=== PATIENT | female | born 1960 | race Caucasian/White ===

== ENCOUNTER 2017-09-15 12:28 | Inpatient (IN) | payer BC ==
--- NOTE | 2017-09-15 12:55 | PDOC ---
History of Present Illness - General Chief Complaint: Headache Stated Complaint: PAIN Time Seen by Provider: 09/15/17 12:52 - History of Present Illness Initial Comments: 57yo F with PMH of COPD, gastric sleeve, and depression presenting with headache. Patient woke up on Sunday with signs of trauma (R. ankle twisted, R. arm knot, bump on her head) but she does not recall an injury or fall. On Sunday night, she presented to the [facility] emergency department for headache. In speaking with [facility], CT imaging revealed R. temporal lobe intraparenchymal hematoma and tentorial subdural hematoma. Neurosurgery was consulted there and the patient was placed in observation. The patient was discharged on with Keppra 500 BID x 1 week and Keflex/Bactrim for cellulitis. The patient reports continuing to have a headache, but with greater severity that she describes as "tense" and "throbbing." She is also complaining of left-sided chest pain that started this morning and does not radiate. Patient does not report history of MO, but had HTN and HLD prior to gastric sleeve operation. Patient is a smoker and reports that her mother suffered an MO in her 40s. Denies fever, chills, shortness of breath, abdominal pain, nausea, or vomiting. 09/15/17 13:31 Past History - Past Medical History Allergies/Adverse Reactions: Allergies Allergy/AdvReac Type Severity Reaction Status Date / Time No Known Allergies Allergy Verified 09/15/17 12:40 Home Medications: Ambulatory Orders Alprazolam [Xanax] 1 mg PO TID 09/15/17 Cephalexin [Keflex] 500 mg PO Q6H 09/15/17 Ibuprofen 800 mg PO TID PRN 09/15/17 Levetiracetam 500 mg PO BID 09/15/17 Sulfamethoxazole/Trimethoprim [Bactrim Ds -] 1 tab PO BID 09/15/17 Trazodone HCl 100 mg PO HS 09/15/17 COPD: No - Surgical History Gastric Stapling: Yes (sleeve) - Suicide/Smoking/Psychosocial Hx Smoking History: Current every day smoker Number of Cigarettes Smoked Daily: 5 Information on smoking cessation initiated: No Review of Systems - Review of Systems Comments:: Constitutional: no fever, no chills HEENT: no throat pain, no dysphagia Cardiovascular: +chest pain, no palpitations Respiratory: no cough, no shortness of breath Gastrointestinal: no abdominal pain, no nausea, no vomiting Genitourinary: no dysuria, no frequency Musculoskeletal: +R. ankle pain, +R. arm pain Skin: no rash, no itching Neurologic: +headache, +lightheadedness, +dizziness *Physical Exam - Vital Signs Last Vital Signs Temp Pulse Resp BP Pulse Ox 97.6 F 71 18 132/100 99 09/15/17 12:35 09/15/17 12:35 09/15/17 12:35 09/15/17 12:35 09/15/17 12:35 - Physical Exam Comments: General: Awake, alert, and fully oriented, in no acute distress Eyes: PERRL, EOMI, sclera anicteric ENT: Moist mucus membranes Neck: Normal ROM, supple, no lymphadenopathy, JVD, or masses Lungs: Lungs clear, Normal breath sounds Cardio: Regular rhythm, S1 and S2 present, no murmurs, rubs, or gallops Abdomen: Soft, nontender Extremities: Normal range of motion, R. ankle swollen, Distal pulses present SKIN: Warm, Dry, normal turgor, no rashes or lesions noted Neurologic: Cranial nerves II through XII grossly intact. Normal strength, sensation, and coordination. Normal speech Heart Score/ECG Review - History History: Moderately suspicious - Electrocardiogram EKG: Normal - Age Age: 45-65 - Risk Factors Risk Factors Heart Score: Yes Smoking History, Yes Positive family hx of cardiac disease Based on the list above the patient has:: 1-2 risk factors - Troponin Troponin: </= normal limit - Score Heart Score - Total: 3 ED Treatment Course - LABORATORY CBC & Chemistry Diagram: 09/16/17 06:00 09/16/17 06:00 Medical Decision Making - Medical Decision Making 57yo F with recent trauma and R. temporal lobe interparenchmal hematoma, tentorial subdural hematoma presenting with headache and chest pain. Patient is complaining of chest pain, is a smoker and her mother had an MO at a young age. Treating her with 1L NS, 1gm tylenol, and 2mg Ativan. CXR normal. EKG rate 66, QTc 402, NSR. Awaiting head CT scan results. 09/15/17 15:[address] Krishnan, neurosurgery, who recommended ICU admission. Spoke with ICU team who will accept the patient for ICU. Spoke with hospitalist team who will accept the patient for admission. 09/15/17 16:04 On reassessment, patient complaining of 5/10 pain. Ordered 4mg Morphine. 09/15/17 16:34 Patient's friend attempted to retrieve a copy of the CT imaging from [facility] , but the Medical Records department is closed. He received a phone number that a physician can call to discuss the CT report: [phone] 09/15/17 18:08 *DC/Admit/Observation/Transfer Diagnosis at time of Disposition: Subdural hematoma, Intraparenchymal hematoma of brain, Chest pain - Discharge Dispostion Condition at time of disposition: Guarded Decision to Admit order: Yes - Referrals - Patient Instructions - Post Discharge Activity
[2017-09-15] MEDS ORDERED: SODIUM CHLORIDE 1,000 ML IV STA (13:28)
[2017-09-15] MEDS ORDERED: ACETAMINOPHEN 1000 MG/100 ML VIAL (NON FORMULARY) IVPB ONE ×2 (13:28→18:00)
[2017-09-15] MEDS ORDERED: LORazepam 2 MG/ML SDV VIAL ONE (13:36)
[2017-09-15] MEDS ORDERED: ACETAMINOPHEN INJECTION 100 ML IVPB ONE ×2 (13:37→18:23)
[2017-09-15 13:40] LABS: BASO % 0.9 % (0-2.0); EOS % 1.8 % (0-4.5); HEMATOCRIT 42.1 % (32.4-45.2); HEMOGLOBIN 14.5 GM/dL (10.7-15.3); LYMPH % 16.8 % (8-40); MCHC 34.5 g/dl (32.0-36.0); MEAN CELL VOLUME 98.5 fl (80-96); MEAN PLT VOLUME 8.1 fl (7.5-11.1); MONO % 6.6 % (3.8-10.2); NEUT % 73.9 % (42.8-82.8); PLATELET COUNT 198 K/MM3 (134-434); RBC 4.27 M/mm3 (3.60-5.2); RDW 13.7 % (11.6-15.6); WHITE BLOOD COUNT 6.3 K/mm3 (4.0-10.0)
[2017-09-15 14:09] LABS: ALBUMIN 3.7 g/dl (3.4-5.0); ANION GAP 6 (8-16); BILIRUBIN,TOTAL 0.9 mg/dL (0.2-1.0); BLOOD UREA NITROGEN 17 mg/dL (7-18); CALCIUM 8.7 mg/dL (8.5-10.1); CHLORIDE 110 mmol/L (98-107); CO2 27 mmol/L (21-32); CREATININE 0.8 mg/dL (0.55-1.02); GLUCOSE,RANDOM 102 mg/dL (74-106); POTASSIUM 4.1 mmol/L (3.5-5.1); SGOT/AST 14 U/L (15-37); SGPT/ALT 22 U/L (12-78); SODIUM 143 mmol/L (136-145); TOT PROT 6.6 g/dl (6.4-8.2)
[2017-09-15 14:12] LABS: ALK PHOS 72 U/L (45-117)
[2017-09-15] MEDS ORDERED: METOCLOPRAMIDE HCL INJECTION 10 MG/2 ML VIAL IVPUSH ONE (14:27)
[2017-09-15] MEDS ORDERED: METOCLOPRAMIDE HCL INJECTION 10 MG/2 ML VIAL ONE (14:36)
--- NOTE | 2017-09-15 14:49 | PDOC ---
Attending Attestation - Resident Resident Name: Giovanna Estrellath - ED Attending Attestation I have performed the following: I have examined & evaluated the patient, The case was reviewed & discussed with the resident, I agree w/resident's findings & plan, Exceptions are as noted - HPI HPI: 09/15/17 14:45 57 year old female with past medical history of anxiety, gastric sleeve, COPD, smoker presents with headache and chest pain. Several days ago, the patient had a mechanical fall and hit her head. She was brought to [facility] ED where she obtained a head CT. Her head CT was performed and pt was found to have a right temporal intraparemal hematoma and subdural hematoma. Pt was admitted for observation. Reportedly had a CT scan of her head that was stable. Pt was discharged on keppra. Since then, the patient report persisted frontal headache that is constant. She has been feeling generally weak, lightheaded. Stated that today she felt a sudden onset of sharp midsternal chest pain radiating to left shoulder. Denies SOB. The pain is occasionally reproducible with palpation. Radiates to the left neck. Patient never had a prior cardiac workup (echo or stress). Positive family history with mother with IL at 42 years old. Pt smokes 10 cigarettes a day. Pt reports chest pain with headache (in setting of recent head ICH) made her nervous and patient came to the ER. - Physicial Exam PE: 09/15/17 15:07 GENERAL: Awake, alert, and fully oriented. + very anxious HEAD: No signs of trauma EYES: EOMI, sclera anicteric, conjunctiva clear ENT: Auricles normal inspection, hearing grossly normal, nares patent, NECK: Normal ROM, supple LUNGS: Breath sounds equal, clear to auscultation bilaterally. No wheezes, and no crackles HEART: Regular rate and rhythm, normal S1 and S2, no murmurs, rubs or gallops BACK: TTP left upper back (elements of muscle spasms). ABDOMEN: Soft, nontender, No guarding, no rebound. No masses EXTREMITIES: Normal range of motion, no edema. No clubbing or cyanosis. No cords, erythema, or tenderness NEUROLOGICAL: Cranial nerves II through XII intact. Normal speech, 5/5 strength upper and lower extremity. SKIN: Warm, Dry, normal turgor, no rashes or lesions noted. - Medical Decision Making 09/15/17 15:09 Vital Signs Temp Pulse Resp BP Pulse Ox 97.6 F 71 18 132/100 98 09/15/17 12:35 09/15/17 12:35 09/15/17 12:35 09/15/17 12:35 09/15/17 13:02 57 year old F p/w headache. The headache is likely secondary to traumatic ICH. Will repeat head CT, and determine to see if CT head is worse. Symptomatic control and reassess. Chest pain does have some atypical elements, but patient has strong family history of IL, and patient is a current smoker. Will need to rule out IL. Does have some reproducible back spasm. When I had examined the patient, she had a witnessed vasovagal syncopal episode with me secondary to pain. ECG is reassurring and normal. However, will ultimately admit patient for telemetry and cardiac evaluation. Pt is also appears to be quite anxious. Will give IV ativan for relief. 09/15/17 15:50 CT head shows: low-attenuation density/edema in the right temporal lobe with mild mass effect effacing the right lateral basal cistern. no gross acute intraparenchymal hemorrhage is identified. Vasogenic edema should be considered. Small subdural acute/subacute hemorrhage is seen layering over the right tentorium along medial aspect of the right posterior falx. Dr. Krishnan was consulted. Recommends ICU admission and neuro checks. Heart Score/ECG Review - History History: Moderately suspicious - Electrocardiogram EKG: Normal - Age Age: 45-65 - Risk Factors Risk Factors Heart Score: Yes Smoking History, Yes Positive family hx of cardiac disease Based on the list above the patient has:: 1-2 risk factors - Troponin Troponin: </= normal limit - Score Heart Score - Total: 3 #1 ECG reviewed & interpreted by me at: 13:30 09/15/17 15:12 NSR 66, no std/marcell, normal axis, normal intervals, QTC 402 msec, no brugada, no HOCM, no WPW
[2017-09-15 14:55] LABS: INR 1.04 (0.83-1.09); PROTHROMBIN TIME (PATIENT) 11.8 SEC (9.7-13.0)
--- NOTE | 2017-09-15 16:31 | PN ---
Physical Exam: SUBJECTIVE: Patient seen and examined OBJECTIVE: Vital Signs Period Temp Pulse Resp BP Sys/Cho Pulse Ox Last 24 Hr 97.6 F 71-81 17-18 127-132/69-100 98-99 GENERAL: The patient is awake, alert, and fully oriented, in no acute distress. HEAD: Normal with no signs of trauma. EYES: PERRL, extraocular movements intact, sclera anicteric, conjunctiva clear. No ptosis. ENT: Ears normal, nares patent, oropharynx clear without exudates, moist mucous membranes. NECK: Trachea midline, full range of motion, supple. LUNGS: Breath sounds equal, clear to auscultation bilaterally, no wheezes, no crackles, no accessory muscle use. HEART: Regular rate and rhythm, S1, S2 without murmur, rub or gallop. ABDOMEN: Soft, nontender, nondistended, normoactive bowel sounds, no guarding, no rebound, no hepatosplenomegaly, no masses. EXTREMITIES: 2+ pulses, warm, well-perfused, no edema. NEUROLOGICAL: Cranial nerves II through XII grossly intact. Normal speech, gait not observed. PSYCH: Normal mood, normal affect. SKIN: Warm, dry, normal turgor, no rashes or lesions noted Laboratory Results - last 24 hr 09/15/17 09/15/17 09/15/17 13:32 13:32 13:32 WBC 6.3 RBC 4.27 Hgb 14.5 Hct 42.1 MCV 98.5 H MCH 34.0 H MCHC 34.5 RDW 13.7 Plt Count 198 MPV 8.1 Absolute Neuts (auto) 4.7 Neutrophils % 73.9 Lymphocytes % 16.8 Monocytes % 6.6 Eosinophils % 1.8 Basophils % 0.9 Nucleated RBC % 0 PT with INR 11.80 INR 1.04 Sodium 143 Potassium 4.1 Chloride 110 H Carbon Dioxide 27 Anion Gap 6 L BUN 17 Creatinine 0.8 Creat Clearance w eGFR > 60 Random Glucose 102 Calcium 8.7 Total Bilirubin 0.9 AST 14 L ALT 22 Alkaline Phosphatase 72 Troponin I < 0.02 Total Protein 6.6 Albumin 3.7 CBC, [facility] 09/15/17 13:32 09/15/17 13:32 ASSESSMENT/PLAN:
[2017-09-15] MEDS ORDERED: morphine CARPU-JECT 4 MG/1 ML DISP.SYRIN IVPUSH ONE (16:32)
--- NOTE | 2017-09-15 16:32 | HP ---
CHIEF COMPLAINT: PCP: HISTORY OF PRESENT ILLNESS: 57yo F with PMH of COPD, gastric sleeve, and depression presenting with headache. Patient woke up on Sunday with signs of trauma (R. ankle twisted, R. arm knot, bump on her head) but she does not recall an injury or fall. On Sunday night, she presented to the [facility] emergency department for headache. In speaking with [facility], CT imaging revealed R. temporal lobe intraparenchymal hematoma and tentorial subdural hematoma. Neurosurgery was consulted and the patient was placed in observation. The patient was discharged on with Keppra 500 BID x 1 week and Keflex/Bactrim for cellulitis. The patient reports continuing to have a headache, but with greater severity that she describes as "tense" and "throbbing." She is also complaining of left-sided chest pain that started this morning and does not radiate. Patient does not report history of UT, but had HTN and HLD prior to gastric sleeve operation. Denies fever, chills, shortness of breath, abdominal pain, nausea, or vomiting, dysuria or hematuria. ER course was notable for: (1) CT head (2) NS 1 L (3) pain control Recent Travel:denies PAST MEDICAL HISTORY COPD, gastric sleeve, and depression , subdural hematoma , intracrnial hematoma PAST SURGICAL HISTORY: denies Social History: Smokin PPD since age of 17 (42 years PPD) Alcohol:one smernoff every other day Drugs: denies Family History: mother at age of 40 heart attack Allergies No Known Allergies Allergy (Verified 09/15/17 12:40) HOME MEDICATIONS: Home Medications Medication Instructions Recorded Alprazolam [Xanax] 1 mg PO TID 09/15/17 Cephalexin [Keflex] 500 mg PO Q6H 09/15/17 Ibuprofen 800 mg PO TID PRN 09/15/17 Levetiracetam 500 mg PO BID 09/15/17 Sulfamethoxazole/Trimethoprim 1 tab PO BID 09/15/17 [Bactrim Ds -] REVIEW OF SYSTEMS CONSTITUTIONAL: Absent: fever, chills, diaphoresis, generalized weakness, malaise, loss of appetite, weight change HEENT: Absent: rhinorrhea, nasal congestion, throat pain, throat swelling, difficulty swallowing, mouth swelling, ear pain, eye pain, visual changes CARDIOVASCULAR: chest pain, Absent: syncope, palpitations, irregular heart rate, lightheadedness, peripheral edema RESPIRATORY: Absent: cough, shortness of breath, dyspnea with exertion, orthopnea, wheezing, stridor, hemoptysis GASTROINTESTINAL: nausea, Absent: abdominal pain, abdominal distension, vomiting, diarrhea, constipation, melena, hematochezia GENITOURINARY: Absent: dysuria, frequency, urgency, hesitancy, hematuria, flank pain, genital pain MUSCULOSKELETAL: back pain, neck pain Absent: myalgia, arthralgia, joint swelling, SKIN: Absent: rash, itching, pallor NEUROLOGIC: headache, dizziness, Absent: focal weakness or paresthesias, unsteady gait, seizure, mental status changes, bladder or bowel incontinence PSYCHIATRIC: anxiety, depression, Absent: suicidal or homicidal ideation, hallucinations. PHYSICAL EXAMINATION Vital Signs - 24 hr 09/15/17 09/15/17 09/15/17 12:35 13:02 16:29 Temperature 97.6 F Pulse Rate 71 Pulse Rate [ 81 Apical] Respiratory 18 17 Rate Blood Pressure 132/100 Blood Pressure 127/69 [Left Arm] O2 Sat by Pulse 99 98 98 Oximetry (%) GENERAL: AAO3 , seems anxious HEAD: NC/AT EYES: MARIO, EOMI , sclera anicteric, conjunctiva clear. ENT: nares patent, oropharynx clear without exudates. Moist mucous membranes. NECK: Normal range of motion, supple without JVD, LUNGS: CTA B/L . No wheezes, and no crackles. No accessory muscle use. HEART: Regular rate and rhythm, normal S1 and S2 without murmur, rub or gallop. ABDOMEN: Soft, nontender, not distended, normoactive bowel sounds, no guarding, no rebound, MUSCULOSKELETAL: Normal range of motion at all joints. No bony deformities , upper back tenderness. No CVA tenderness. UPPER EXTREMITIES: 2+ pulses, warm, well-perfused. No cyanosis. No clubbing. No peripheral edema. LOWER EXTREMITIES: 2+ pulses, warm, well-perfused. No calf tenderness. No peripheral edema. NEUROLOGICAL: Cranial nerves II-XII intact. Normal speech. Normal gait. PSYCHIATRIC: Cooperative. Good eye contact SKIN: Warm, dry, normal turgor, no rashes or lesions noted, normal capillary refill. Laboratory Results - last 24 hr 09/15/17 09/15/17 09/15/17 13:32 13:32 13:32 WBC 6.3 RBC 4.27 Hgb 14.5 Hct 42.1 MCV 98.5 H MCH 34.0 H MCHC 34.5 RDW 13.7 Plt Count 198 MPV 8.1 Absolute Neuts (auto) 4.7 Neutrophils % 73.9 Lymphocytes % 16.8 Monocytes % 6.6 Eosinophils % 1.8 Basophils % 0.9 Nucleated RBC % 0 PT with INR 11.80 INR 1.04 Sodium 143 Potassium 4.1 Chloride 110 H Carbon Dioxide 27 Anion Gap 6 L BUN 17 Creatinine 0.8 Creat Clearance w eGFR > 60 Random Glucose 102 Calcium 8.7 Total Bilirubin 0.9 AST 14 L ALT 22 Alkaline Phosphatase 72 Troponin I < 0.02 Total Protein 6.6 Albumin 3.7 CBC, BMP 09/15/17 13:32 09/15/17 13:32 ASSESSMENT/PLAN: 57yo F with PMH of COPD, gastric sleeve, and depression, recent mechanical fall and intracranial bleed (last sunday at [facility] ) presenting with headache.and left shoulder pain admitted to ICU for SDH and Intra parenchymal bleed monitoring #Temporal ICH w/ vasogenic edema * CT shows little mass effect and acute SDH * Neurosurgery consulted with Dr. Drake * Neuro checks q2h and ICU monitoring. * Repeat imaging per Neurosurgery. * NPO w/ gentle IVF hydration. * Continue keppra 500 BID x 1 week * Pain control with IV tylenol/lidocaine * avoid narcotics, can worsen dizziness and risk of falls. * avoid ibuprofen, Naproxen or any other NSAIDs * Drug screen * PT eval inpatient if no new concerns overnight. * pt may have some positional dizziness for few weeks and advised for outpatient PT #Atypical chest pain - suspect musculoskeletal. * presentation not consistent with ACS. EKG unremarkable. Not a candidate for full dose AC and not a candidate for elective cardiac w/u untill bleed concerns have resolved. * cardiac enzymes * Telemetry #back pain * generalized with no point tenderness or spasm * Pain control with IV tylenol/lidocaine #cellulitis * cont keflex/bactrim per outpatient for now. # COPD * stable * not on any meds * counseled about smoking cessation # Depression /anxiety * cont home meds Xanax 1 mg TID , Trazadon 100 mg HS # FEN * F: D5/NS @ 75 CC/hr * E: WNL * N : NPO except meds # Proph * DVTS: early ambulations , scds , avoid chemo proph in term of intracranical bleed * # dispo * admit to ICU * PT eval inpatient if no new concerns overnight. total admit time 60 min case was discussed with Dr thompson and medical team Nain Mendez MD PGY 2 Visit type - Emergency Visit Emergency Visit: Yes Care time: The patient presented to the Emergency Department on the above date and was hospitalized for further evaluation of their emergent condition. - New Patient This patient is new to me today: Yes Date on this admission: 09/15/17 - Critical Care Critical Care patient: Yes Total Critical Care Time (in minutes): 45 Critical Care Statement: The care of this patient involved high complexity decision making to prevent further life threatening deterioration of the patient 's condition and/or to evaluate & treat vital organ system(s) failure or risk of failure. Hospitalist Screening - Colonoscopy Questionnaire Colonoscopy Questionnaire: Colonoscopy Questionnaire - Patient: 50 - 75 years old and never had a screening colonoscopy: Unknown History of colon or rectal polyps, or CA: Unknown History of IBD, Crohn's disease or UC: Unknown History of abdominal radiation therapy as a child: Unknown - Relative: 1 with colon or rectal CA, or polyps at age 60 or younger: Unknown Colon or rectal CA diagnosed at age 45 or younger: Unknown Multiple relatives with colon or rectal CA: Unknown - Outcome: Screening Result: Negative Screen
[2017-09-15] MEDS ORDERED: morphine SULFATE 4 MG/ML VIAL ONE (16:35)
[2017-09-15] MEDS ORDERED: ACETAMINOPHEN 325 MG TABLET (FP) PO PRN (17:16)
--- NOTE | 2017-09-15 17:17 | PN ---
Teaching Attending Note Name of Resident: Nain Mendez ATTENDING PHYSICIAN STATEMENT I saw and evaluated the patient. I reviewed the resident's note and discussed the case with the resident. I agree with the resident's findings and plan as documented with exceptions below. SUBJECTIVE: 57 yof with with recent Temporal ICH/SDH, admitted to [facility], on 09/12, d/ audrey on 09/13 on keppra and keflex/bactrim for right arm cellulitis, comes back with persistent headache, dizziness with movements activity and chest pain. Patient reports a week ago, woke up with severe generalized headache, dizziness , right ankle twisting but denies recalling any h/o fall or trauma. Crawford symptoms would resolve, but when they didn't so went to [facility] on 09/12, where was diagnosed with ICH/SDH as above, monitored overnight. Per patient had CT brain x 3 and right ankle imaging and was sent home the next day. She was advised to stop her naprosyn. However, she had been having ongoing headaches, intermittent, generalized, throbbing, more with head movements and activity, associated with dizziness and not 'feeling herself'. This AM also had left shoulder pain radiating to left upper back, with self resolution, prompting her to come to ED. Current no further shoulder pain, but reports focal upper back pain, pointing to the area but no limitation of shoulder movements. Denies any back pain, abdominal or urinary symptoms, palpitations, dyspnea, dizziness, weakness, tingling/numbness, visual or speech concerns. Took a dose of home ibuprofen this AM. OBJECTIVE: Vital Signs Period Temp Pulse Resp BP Sys/Cho Pulse Ox Last 24 Hr 97.6 F 71-81 17-18 127-132/69-100 98-99 Intake & Output 09/12/17 09/13/17 09/14/17 09/15/17 23:59 23:59 23:59 23:59 Weight 145 lb GENERAL: Awake, alert, and fully oriented, in no acute distress. HEAD: Normal with no signs of trauma. EYES: Pupils equal, round and reactive to light, extraocular movements intact, sclera anicteric, conjunctiva clear. No lid lag. EARS, NOSE, THROAT: Ears normal, nares patent, oropharynx clear without exudates. Moist mucous membranes. NECK: soft, supple, no JVD, full ROM (reports some dizziness with movements). LUNGS: Breath sounds equal, clear to auscultation bilaterally. No wheezes, and no crackles. No accessory muscle use. HEART: S1S2 regular ABDOMEN: Soft, obese, nontender, not distended, normoactive bowel sounds, no guarding, no rebound, no masses. MUSCULOSKELETAL: Normal range of motion at all joints. No spinal tenderness per se, but on paraspinal palpation, reports tenderness and had her eyes transiently closed but was arousable and appropriate through the exam, no spasm or point tenderness noted UPPER EXTREMITIES: 2+ pulses, warm, well-perfused. No cyanosis. No clubbing. No peripheral edema. LOWER EXTREMITIES: 2+ pulses, warm, well-perfused. No calf tenderness. No peripheral edema. NEUROLOGICAL: Cranial nerves II-XII intact. Normal speech. dizziness but no gait abnormalities otherwise, facial symmetry, power 5/5, sensation intact and symmetric to light touch, no pronator drift, EOMI, PERRL, finger nose test with no past pointing PSYCHIATRIC: Cooperative. Good eye contact. Appropriate mood and affect. SKIN: Warm, dry, normal turgor, no rashes or lesions noted, normal capillary refill. Home Medications Medication Instructions Recorded Alprazolam [Xanax] 1 mg PO TID 09/15/17 Cephalexin [Keflex] 500 mg PO Q6H 09/15/17 Ibuprofen 800 mg PO TID PRN 09/15/17 Levetiracetam 500 mg PO BID 09/15/17 Sulfamethoxazole/Trimethoprim 1 tab PO BID 09/15/17 [Bactrim Ds -] Laboratory Results - last 24 hr 09/15/17 09/15/17 09/15/17 13:32 13:32 13:32 WBC 6.3 RBC 4.27 Hgb 14.5 Hct 42.1 MCV 98.5 H MCH 34.0 H MCHC 34.5 RDW 13.7 Plt Count 198 MPV 8.1 Absolute Neuts (auto) 4.7 Neutrophils % 73.9 Lymphocytes % 16.8 Monocytes % 6.6 Eosinophils % 1.8 Basophils % 0.9 Nucleated RBC % 0 PT with INR 11.80 INR 1.04 Sodium 143 Potassium 4.1 Chloride 110 H Carbon Dioxide 27 Anion Gap 6 L BUN 17 Creatinine 0.8 Creat Clearance w eGFR > 60 Random Glucose 102 Calcium 8.7 Total Bilirubin 0.9 AST 14 L ALT 22 Alkaline Phosphatase 72 Troponin I < 0.02 Total Protein 6.[address] brain result and images reviewed EKG- NSR, no acute ST-T changes ASSESSMENT AND PLAN: 57 yof, recently admitted to [facility] with ICH/SDH, d/audrey on keppra/ antibiotics, comes back with persistent headache/dizziness and atypical chest pain -Temporal ICH with vasogenic edema with little mass effect and acute SDH -Atypical chest pain, suspect musculoskeletal -Generalized non specific back pain with no point tenderness or spasm -Recent ?RUE cellulitis from trauma PLan: Neurosurgery consulted with Dr. Drake, overnight close neuro checks and ICU monitoring. Neuro checks q1h, NPO, gentle hydration. Continue keppra. Pain control with IV tylenol/lidocaine. Advised patient to avoid narcotics given potential to worsen dizziness and risk of falls. Explained patient that will likely have some positional dizziness for few weeks and advised outpatient PT PT eval inpatient if no new concerns overnight. Repeat Head imaging per Neurosurgery. Telemetry, cycle cardiac enzymes. EKG unremarkable. Symptoms and presentation not consistent with ACS. Also not a candidate for full dose anti-coagulation and hence currently not a candidate for elective cardiac w/u till bleed concerns have resolved. Patient advised smoking cessation and need for outpatient cardiac w/u given her risk factors, if current stay unremarkable. Strongly advised to avoid ibuprofen, Naproxen or any other NSAIDs without discussion with her doctor. Continue keflex/bactrim per outpatient for now. Drug screen. DVTPPX with SCDs. Dispo admit to ICU, further based on clinical course. Plan discussed with patient in detail, all questions answered. Patient relays understanding and in agreement. Total admit time 60 min.
[2017-09-15] MEDS ORDERED: SODIUM CHLORIDE 1,000 ML IV SCH (17:30)
[2017-09-15] MEDS ORDERED: DEXTROSE 5%-NORMAL SALINE 1,000 ML IV SCH (18:00)
[2017-09-15] MEDS ORDERED: CEPHALEXIN MONOHYDRATE 500 MG CAPSULE (UD) ONE (18:02)
[2017-09-15] MEDS ORDERED: LIDOCAINE 5% TOPICAL PATCH ONE (18:03)
[2017-09-15] MEDS: LIDOCAINE 5% TOPICAL PATCH TP SCH (18:40)
[2017-09-15] MEDS: CEPHALEXIN MONOHYDRATE 500 MG CAPSULE (UD) PO SCH (18:45)
[2017-09-15 21:42] LABS: COCAINE, UR NEGATIVE ng/ml (CUTOFF=300); METHADONE, UR NEGATIVE ng/ml (CUTOFF=300); OPIATES, URI NEGATIVE ng/ml (CUTOFF=300); PHENCYCLIDINE,URINE NEGATIVE ng/ml (CUTOFF=25); URINE AMPHETAMINES NEGATIVE ng/ml (CUTOFF=500); URINE BARBITURATES NEGATIVE ng/ml (CUTOFF=200)
[2017-09-15 21:43] LABS: URINE BENZODIAZEPINES POSITIVE ng/ml (CUTOFF=200)
--- NOTE | 2017-09-15 21:51 | CONSULT ---
Consultation: REQUESTING PROVIDER: CONSULT REQUEST: We have been asked to medically evaluate this patient for ( subdural hematoma). HISTORY OF PRESENT ILLNESS: Pt is a 57 y/o lady who was admitted to [facility]) on 09/12 and found to have a right sided subdural hematoma located in the temporal region. She was discharged from [facility] ([facility]) on 09/13 on keppra and keflex/ bactrim for right arm cellulitis. Pt presented today to [facility] today with persistent headache, seeing flashing yellow lights, and experiencing a sensation of the room spinning. Pt also states that she has been having radiating chest pain from her left shoulder to her back. Patient endorses that a week ago, she woke up with a severe generalized headache, dizziness, right ankle pain (denies recalling any h/o fall or trauma). Per patient had CT brain x 3 and right ankle imaging and was sent home the next day. She was advised to stop her naprosyn. REVIEW OF SYSTEMS: CONSTITUTIONAL: PRESENT: generalized weakness, malaise, loss of appetite HEENT: PRESENT: eye pain, visual changes CARDIOVASCULAR: PRESENT chest pain, syncope, lightheadedness RESPIRATORY: Absent: cough, shortness of breath, dyspnea with exertion, orthopnea, wheezing, stridor, hemoptysis GASTROINTESTINAL: Absent: abdominal pain, abdominal distension, nausea, vomiting, diarrhea, constipation, melena, hematochezia GENITOURINARY: Absent: dysuria, frequency, urgency, hesitancy, hematuria, flank pain, genital pain MUSCULOSKELETAL: PRESENT: myalgia, back pain SKIN: PRESENT: Cellulitis HEMATOLOGIC/IMMUNOLOGIC: Absent: easy bleeding, easy bruising, lymphadenopathy, frequent infections ENDOCRINE: Absent: unexplained weight gain, unexplained weight loss, heat intolerance, cold intolerance NEUROLOGIC: Absent: headache, focal weakness or paresthesias, dizziness, unsteady gait, seizure, mental status changes, bladder or bowel incontinence PSYCHIATRIC: Absent: anxiety, depression, suicidal or homicidal ideation, hallucinations. PHYSICAL EXAMINATION Vital Signs - 24 hr 09/15/17 09/15/17 09/15/17 12:35 13:02 16:29 Temperature 97.6 F Pulse Rate 71 Pulse Rate [ 81 Apical] Respiratory 18 17 Rate Blood Pressure 132/100 Blood Pressure 127/69 [Left Arm] O2 Sat by Pulse 99 98 98 Oximetry (%) GENERAL: AD. Severe Headache HEAD: Swelling right side head. EYES: Difficulty following finger. EARS, NOSE, THROAT: WNL NECK:Supple. No JVD. LUNGS: CTA B/L HEART: RRR, No MRG, S1,S2 ABDOMEN: Soft, No HSM, ND, NT MUSCULOSKELETAL: Shoulder pain. UPPER EXTREMITIES: No CCE LOWER EXTREMITIES: No CCE NEUROLOGICAL: Unable to complete full Neuro Exam. Uncooperative. PSYCHIATRIC: Anxious. SKIN: Cellulitis right arm. Laboratory Results - last 24 hr 09/15/17 09/15/17 09/15/17 13:32 13:32 13:32 WBC 6.3 RBC 4.27 Hgb 14.5 Hct 42.1 MCV 98.5 H MCH 34.0 H MCHC 34.5 RDW 13.7 Plt Count 198 MPV 8.1 Absolute Neuts (auto) 4.7 Neutrophils % 73.9 Lymphocytes % 16.8 Monocytes % 6.6 Eosinophils % 1.8 Basophils % 0.9 Nucleated RBC % 0 PT with INR 11.80 INR 1.04 Sodium 143 Potassium 4.1 Chloride 110 H Carbon Dioxide 27 Anion Gap 6 L BUN 17 Creatinine 0.8 Creat Clearance w eGFR > 60 Random Glucose 102 Calcium 8.7 Total Bilirubin 0.9 AST 14 L ALT 22 Alkaline Phosphatase 72 Creatine Kinase Troponin I < 0.02 Total Protein 6.6 Albumin 3.7 09/15/17 15:55 WBC RBC Hgb Hct MCV MCH MCHC RDW Plt Count MPV Absolute Neuts (auto) Neutrophils % Lymphocytes % Monocytes % Eosinophils % Basophils % Nucleated RBC % PT with INR INR Sodium Potassium Chloride Carbon Dioxide Anion Gap BUN Creatinine Creat Clearance w eGFR Random Glucose Calcium Total Bilirubin AST ALT Alkaline Phosphatase Creatine Kinase 46 Troponin I < 0.02 Total Protein Albumin Active Medications Generic Name Dose Route Start Last Admin Trade Name Freq PRN Reason Stop Dose Admin Alprazolam 1 mg 09/15/17 22:00 Xanax - PO TID JULY Cephalexin HCl 500 mg 09/15/17 18:00 09/15/17 18:45 Keflex - PO 500 mg Q6HPO JULY Administration Chlorhexidine Gluconate 1 applic 09/15/17 22:00 Hibiclens For Decolonization - TP HS JULY Dextrose/Sodium Chloride 1,000 mls @ 75 mls/hr 09/15/17 18:00 09/15/17 18:54 D5-Ns - IV 75 mls/hr ASDIR JULY Administration Levetiracetam 500 mg 09/15/17 22:00 Keppra - PO BID JULY Lidocaine 1 patch 09/15/17 18:00 09/15/17 18:40 Lidoderm Patch - TP 1 patch DAILY JULY Administration Miscellaneous 1 each 09/15/17 22:00 Lidoderm Patch Removal MC DAILY@2200 [facility] Mupirocin 1 applic 09/15/17 22:00 Bactroban Ointment (For Decolonization) - NS 09/20/17 21:59 BID JULY Trazodone HCl 100 mg 09/15/17 22:00 Desyrel - PO HS JULY Trimethoprim/Sulfamethoxazole 1 each 09/15/17 22:00 Bactrim Ds - PO BID JULY ASSESSMENT/PLAN: Neuro: Intracranial hemmorghae- Subdural Hematoma. - Keppra 500 mg PO BID -Neurosurgery consulted with Dr. Drake, overnight close neuro checks and ICU monitoring. -Neuro checks q2h cycle cardiac enzymes -Withhold ibuprofen, Naproxen and NSAIDs -Head CT 09/15/17 --> No gross intraparenchymal hemmorhage identified. A small subdural acute/subacute hemmorhage is seen layering over the right tentorium and along medial aspect of the right posterior falx without mass efect. NPO w/ gentle IVF hydration. ID: Cellulitis--> Keflex 500 mg PO BID DVT ppx: No A/C at this time due to subdural bleed. -SCD's FEN: D5NS- NS 1,000 mls @ 75 mls/hr Monitor Electrolytes NPO Dispo: We will continue to follow the patient. Thank you for this consultative opportunity. Visit type - Emergency Visit Emergency Visit: Yes Care time: The patient presented to the Emergency Department on the above date and was hospitalized for further evaluation of their emergent condition. - New Patient This patient is new to me today: Yes Date on this admission: 09/15/17 - Critical Care Critical Care patient: Yes Total Critical Care Time (in minutes): 35 Critical Care Statement: The care of this patient involved high complexity decision making to prevent further life threatening deterioration of the patient 's condition and/or to evaluate & treat vital organ system(s) failure or risk of failure.
[2017-09-15] MEDS ORDERED: ALPRAZolam 2 MG TABLET PO SCH (22:00)
[2017-09-15] MEDS ORDERED: levETIRAcetam 500 MG TABLET (FP) PO ONE (22:19)
[2017-09-15] MEDS ORDERED: SULFAMETHOXAZOLE/TRIMETHOPRIM 800MG/160MG D.S. TABLET ONE (22:19)
[2017-09-15] MEDS: SULFAMETHOXAZOLE/TRIMETHOPRIM 800MG/160MG D.S. TABLET PO SCH (23:01)
[2017-09-15] MEDS: ALPRAZolam 0.25 MG TABLET PO SCH (23:01)
[2017-09-15] MEDS: levETIRAcetam 500 MG TABLET (FP) PO SCH (23:01)
[2017-09-15] MEDS: traZODone HCL 50 MG TABLET (FP) PO SCH (23:01)
[2017-09-16] MEDS ORDERED: CEPHALEXIN MONOHYDRATE 500 MG CAPSULE (UD) ONE (00:06)
[2017-09-16] MEDS: CEPHALEXIN MONOHYDRATE 500 MG CAPSULE (UD) PO SCH ×5 (00:09→23:15)
[2017-09-16] MEDS: LIDOCAINE PATCH REMOVAL MC SCH ×2 (00:09→21:57)
[2017-09-16 06:33] LABS: BASO % 1.1 % (0-2.0); EOS % 3.3 % (0-4.5); HEMATOCRIT 38.7 % (32.4-45.2); HEMOGLOBIN 13.4 GM/dL (10.7-15.3); LYMPH % 21.9 % (8-40); MCH 34.1 pg (25.7-33.7); MCHC 34.6 g/dl (32.0-36.0); MEAN CELL VOLUME 98.6 fl (80-96); MEAN PLT VOLUME 7.8 fl (7.5-11.1); NEUT % 65.7 % (42.8-82.8); PLATELET COUNT 164 K/MM3 (134-434); RBC 3.93 M/mm3 (3.60-5.2); WHITE BLOOD COUNT 4.6 K/mm3 (4.0-10.0)
[2017-09-16 06:43] LABS: INR 1.07 (0.83-1.09); PROTHROMBIN TIME (PATIENT) 12.1 SEC (9.7-13.0)
[2017-09-16 06:46] LABS: ACTIVATED PTT 29.7 SECONDS (25.2-36.5)
[2017-09-16 06:59] LABS: ALBUMIN 3.3 g/dl (3.4-5.0); ANION GAP 7 (8-16); BILIRUBIN,TOTAL 0.7 mg/dL (0.2-1.0); BLOOD UREA NITROGEN 10 mg/dL (7-18); CALCIUM 8.4 mg/dL (8.5-10.1); CHLORIDE 110 mmol/L (98-107); CO2 26 mmol/L (21-32); CREATININE 0.7 mg/dL (0.55-1.02); GLUCOSE,RANDOM 76 mg/dL (74-106); PHOSPHOROUS 3.9 mg/dL (2.5-4.9); POTASSIUM 3.8 mmol/L (3.5-5.1); SGOT/AST 12 U/L (15-37); SGPT/ALT 18 U/L (12-78); SODIUM 143 mmol/L (136-145)
[2017-09-16 07:00] LABS: ALK PHOS 66 U/L (45-117); TOT PROT 5.9 g/dl (6.4-8.2)
[2017-09-16] MEDS ORDERED: ALPRAZolam 0.25 MG TABLET ONE (07:28)
[2017-09-16] MEDS ORDERED: CEPHALEXIN MONOHYDRATE 250 MG CAPSULE (FP) ONE (07:29)
[2017-09-16] MEDS: ALPRAZolam 0.25 MG TABLET PO SCH ×3 (07:33→21:59)
[2017-09-16] MEDS ORDERED: ACETAMINOPHEN 1000 MG/100 ML VIAL (NON FORMULARY) IVPB PRN (07:44)
--- NOTE | 2017-09-16 08:19 | PN ---
Physical Exam: SUBJECTIVE: Patient seen and examined, currently denies any headache or dizziness. asking for something for 'pain'. OBJECTIVE: Vital Signs Period Temp Pulse Resp BP Sys/Cho Pulse Ox Last 24 Hr 97.6 F-98.6 F 70-81 16-18 127-156/69-100 97-99 GENERAL: sitting in bed in no acute distress Neck: soft, Supple, no JVD Chest: CTAB, no rales or wheezing Abdomen:Soft, NT, ND, positive bowel sounds Extremities: no edema, resolving abrasion right lateral arm NEuro: AAOX3, PERRL, EOMI, power 5/5, sensation intact to light touch bilaterally, symmetric, facial symmetry, tongue midline, no pronator drift Laboratory Results - last 24 hr 09/15/17 09/15/17 09/15/17 13:32 13:32 13:32 WBC 6.3 RBC 4.27 Hgb 14.5 Hct 42.1 MCV 98.5 H MCH 34.0 H MCHC 34.5 RDW 13.7 Plt Count 198 MPV 8.1 Absolute Neuts (auto) 4.7 Neutrophils % 73.9 Lymphocytes % 16.8 Monocytes % 6.6 Eosinophils % 1.8 Basophils % 0.9 Nucleated RBC % 0 PT with INR 11.80 INR 1.04 PTT (Actin FS) Sodium 143 Potassium 4.1 Chloride 110 H Carbon Dioxide 27 Anion Gap 6 L BUN 17 Creatinine 0.8 Creat Clearance w eGFR > 60 Random Glucose 102 Calcium 8.7 Phosphorus Magnesium Total Bilirubin 0.9 AST 14 L ALT 22 Alkaline Phosphatase 72 Creatine Kinase Troponin I < 0.02 Total Protein 6.6 Albumin 3.7 Opiates Screen Methadone Screen Barbiturate Screen Phencyclidine Screen Ur Amphetamines Screen MDMA (Ecstasy) Screen Benzodiazepines Screen Cocaine Screen U Marijuana (THC) Screen 09/15/17 09/15/17 09/15/17 15:55 21:00 22:45 WBC RBC Hgb Hct MCV MCH MCHC RDW Plt Count MPV Absolute Neuts (auto) Neutrophils % Lymphocytes % Monocytes % Eosinophils % Basophils % Nucleated RBC % PT with INR INR PTT (Actin FS) Sodium Potassium Chloride Carbon Dioxide Anion Gap BUN Creatinine Creat Clearance w eGFR Random Glucose Calcium Phosphorus Magnesium Total Bilirubin AST ALT Alkaline Phosphatase Creatine Kinase 46 Troponin I < 0.02 Cancelled Total Protein Albumin Opiates Screen Negative Methadone Screen Negative Barbiturate Screen Negative Phencyclidine Screen Negative Ur Amphetamines Screen Negative MDMA (Ecstasy) Screen Negative Benzodiazepines Screen Positive Cocaine Screen Negative U Marijuana (THC) Screen Positive 09/15/17 09/16/17 09/16/17 22:45 06:00 06:00 WBC 4.6 RBC 3.93 Hgb 13.4 Hct 38.7 MCV 98.6 H MCH 34.1 H MCHC 34.6 RDW 13.0 Plt Count 164 MPV 7.8 Absolute Neuts (auto) 3.0 Neutrophils % 65.7 Lymphocytes % 21.9 D Monocytes % 8.0 Eosinophils % 3.3 D Basophils % 1.1 Nucleated RBC % 0 PT with INR 12.10 INR 1.07 PTT (Actin FS) 29.7 Sodium Potassium Chloride Carbon Dioxide Anion Gap BUN Creatinine Creat Clearance w eGFR Random Glucose Calcium Phosphorus Magnesium Total Bilirubin AST ALT Alkaline Phosphatase Creatine Kinase Troponin I < 0.02 Total Protein Albumin Opiates Screen Methadone Screen Barbiturate Screen Phencyclidine Screen Ur Amphetamines Screen MDMA (Ecstasy) Screen Benzodiazepines Screen Cocaine Screen U Marijuana (THC) Screen 09/16/17 06:00 WBC RBC Hgb Hct MCV MCH MCHC RDW Plt Count MPV Absolute Neuts (auto) Neutrophils % Lymphocytes % Monocytes % Eosinophils % Basophils % Nucleated RBC % PT with INR INR PTT (Actin FS) Sodium 143 Potassium 3.8 Chloride 110 H Carbon Dioxide 26 Anion Gap 7 L BUN 10 Creatinine 0.7 Creat Clearance w eGFR > 60 Random Glucose 76 Calcium 8.4 L Phosphorus 3.9 Magnesium 2.0 Total Bilirubin 0.7 AST 12 L ALT 18 Alkaline Phosphatase 66 Creatine Kinase Troponin I Total Protein 5.9 L Albumin 3.3 L Opiates Screen Methadone Screen Barbiturate Screen Phencyclidine Screen Ur Amphetamines Screen MDMA (Ecstasy) Screen Benzodiazepines Screen Cocaine Screen U Marijuana (THC) Screen Active Medications Generic Name Dose Route Start Last Admin Trade Name Freq PRN Reason Stop Dose Admin Acetaminophen 1,000 mg 09/16/17 07:44 Ofirmev Injection - IVPB Q6H PRN PAIN LEVEL 6-10 Alprazolam 1 mg 09/15/17 22:30 09/16/17 07:33 Xanax - PO 1 mg TID JULY Administration Cephalexin HCl 500 mg 09/15/17 18:00 09/16/17 07:33 Keflex - PO 500 mg Q6HPO JULY Administration Chlorhexidine Gluconate 1 applic 09/15/17 22:00 Hibiclens For Decolonization - TP HS JULY Dextrose/Sodium Chloride 1,000 mls @ 75 mls/hr 09/15/17 18:00 09/15/17 18:54 D5-Ns - IV 75 mls/hr ASDIR JULY Administration Levetiracetam 500 mg 09/15/17 22:00 09/15/17 23:01 Keppra - PO 500 mg BID JULY Administration Lidocaine 1 patch 09/15/17 18:00 09/15/17 18:40 Lidoderm Patch - TP 1 patch DAILY JULY Administration Miscellaneous 1 each 09/15/17 22:00 09/16/17 00:09 Lidoderm Patch Removal MC 1 each DAILY@2200 JULY Administration Mupirocin 1 applic 09/15/17 22:00 Bactroban Ointment (For Decolonization) - NS 09/20/17 21:59 BID JULY Trazodone HCl 100 mg 09/15/17 22:00 09/15/17 23:01 Desyrel - PO 100 mg HS JULY Administration Trimethoprim/Sulfamethoxazole 1 each 09/15/17 22:00 09/15/17 23:01 Bactrim Ds - PO 1 each BID JULY Administration CT head (follow UP ) Prelim read discussed with Dr. Mac Curiel, concern for venous sinus thrombosis and venous infarct. ASSESSMENT/PLAN: 57 yof, recently admitted to [facility] with reproted ICH/SDH, d/audrey on keppra/ antibiotics, comes back with persistent headache/dizziness and atypical chest pain -Temporal ICH with vasogenic edema with mass effect and acute SDH -Atypical chest pain, suspect musculoskeletal,resolved -Generalized non specific back pain with no point tenderness or spasm -Recent ?RUE cellulitis from trauma Plan: Notified by lactation nurse radiology this AM Dr. Mac Curiel, patient's follow up CT brain unchanged but concerning for venous sinus thrombosis/Venous infarct. MRI brain/MRA/MRV head stat ordered. Discussed with Dr Drake, suggested transfer to [facility] pending above. Called [facility] transfer center, discussed with neurosurgery Dr. Mera, CT brain report discussed in detail with her, as per her, prior CT brain read at [facility] was reportedly similar and was suggestive of contusion. Patient was in MRI then, recommended stat ED transfer if MRI/MRA/MRV concerning for venous sinus thrombosis. MRI/MRA/MRV results obtained stat, neg for concerns. Discussed with ICU and Dr. Drake, plan for ICU monitoring x 24 hours w ith close neuro checks. Continue keppra. Neurology input given h/o stroke. Suspect underlying anxiety, stressors contributory as well. Continue xanax. Drug screen positive for marihuana. Social work input. Continue bactrim/keflex prophylaxis as suggested by cruz. Advance diet, DC IVF DVTPPX with SCDs patient advised to avoid NSAIDs, till cleared by her doctor. (had taken a dose of ibuprofen on day of admission) Care was co-ordination with ED RN, neurosurgery, ICU, monitefiorre. Total critical care time spent including patient visit, discussion, co- ordination of care 75 min. Visit type - Emergency Visit Emergency Visit: Yes ED Registration Date: 09/15/17 Care time: The patient presented to the Emergency Department on the above date and was hospitalized for further evaluation of their emergent condition. - New Patient This patient is new to me today: No - Critical Care Critical Care patient: Yes Total Critical Care Time (in minutes): 75 Critical Care Statement: The care of this patient involved high complexity decision making to prevent further life threatening deterioration of the patient 's condition and/or to evaluate & treat vital organ system(s) failure or risk of failure. - Discharge Referral Referred to [facility] Med P.C.: No
[2017-09-16] MEDS ORDERED: levETIRAcetam 500 MG TABLET (FP) PO ONE (08:36)
[2017-09-16] MEDS ORDERED: SULFAMETHOXAZOLE/TRIMETHOPRIM 800MG/160MG D.S. TABLET ONE (08:36)
[2017-09-16] MEDS ORDERED: LIDOCAINE 5% TOPICAL PATCH ONE (08:37)
[2017-09-16] MEDS: LIDOCAINE 5% TOPICAL PATCH TP SCH (09:05)
[2017-09-16] MEDS: SULFAMETHOXAZOLE/TRIMETHOPRIM 800MG/160MG D.S. TABLET PO SCH ×2 (09:05→21:57)
[2017-09-16] MEDS: levETIRAcetam 500 MG TABLET (FP) PO SCH (09:05)
[2017-09-16] MEDS ORDERED: ACETAMINOPHEN INJECTION 100 ML IVPB ONE (09:07)
--- NOTE | 2017-09-16 12:38 | PN ---
Physical Exam: UPDATE 1: On attending rounds pt having visual hallucinations and slightly combatative. Haldol 2mg IVP once SUBJECTIVE: OBJECTIVE: Vital Signs Period Temp Pulse Resp BP Sys/Cho Pulse Ox Last 24 Hr 98.1 F-98.6 F 63-81 16-17 127-156/69-106 97-98 Gen: NAD, awake, alert, oriented x3 HEENT: NC/AT, EOMI, RONEN, MMM Neck: Soft, ROM intact LUNGS: CTA b/l, no accessory muscle use HEART: RRR no murmurs ABD: Soft NT/ND NEURO: CN II-XII intact. Strength 5/5 in upper and lower extremity pruitt. Sensation intact throughout. No dysarthria. Gait not observed EXT: No edema, 2+ DP pulses, warm Laboratory Results - last 24 hr 09/15/17 09/15/17 09/15/17 13:32 13:32 13:32 WBC 6.3 RBC 4.27 Hgb 14.5 Hct 42.1 MCV 98.5 H MCH 34.0 H MCHC 34.5 RDW 13.7 Plt Count 198 MPV 8.1 Absolute Neuts (auto) 4.7 Neutrophils % 73.9 Lymphocytes % 16.8 Monocytes % 6.6 Eosinophils % 1.8 Basophils % 0.9 Nucleated RBC % 0 PT with INR 11.80 INR 1.04 PTT (Actin FS) Sodium 143 Potassium 4.1 Chloride 110 H Carbon Dioxide 27 Anion Gap 6 L BUN 17 Creatinine 0.8 Creat Clearance w eGFR > 60 POC Glucometer Random Glucose 102 Calcium 8.7 Phosphorus Magnesium Total Bilirubin 0.9 AST 14 L ALT 22 Alkaline Phosphatase 72 Creatine Kinase Troponin I < 0.02 Total Protein 6.6 Albumin 3.7 Opiates Screen Methadone Screen Barbiturate Screen Phencyclidine Screen Ur Amphetamines Screen MDMA (Ecstasy) Screen Benzodiazepines Screen Cocaine Screen U Marijuana (THC) Screen 09/15/17 09/15/17 09/15/17 15:55 21:00 22:45 WBC RBC Hgb Hct MCV MCH MCHC RDW Plt Count MPV Absolute Neuts (auto) Neutrophils % Lymphocytes % Monocytes % Eosinophils % Basophils % Nucleated RBC % PT with INR INR PTT (Actin FS) Sodium Potassium Chloride Carbon Dioxide Anion Gap BUN Creatinine Creat Clearance w eGFR POC Glucometer Random Glucose Calcium Phosphorus Magnesium Total Bilirubin AST ALT Alkaline Phosphatase Creatine Kinase 46 Troponin I < 0.02 Cancelled Total Protein Albumin Opiates Screen Negative Methadone Screen Negative Barbiturate Screen Negative Phencyclidine Screen Negative Ur Amphetamines Screen Negative MDMA (Ecstasy) Screen Negative Benzodiazepines Screen Positive Cocaine Screen Negative U Marijuana (THC) Screen Positive 09/15/17 09/16/17 09/16/17 22:45 06:00 06:00 WBC 4.6 RBC 3.93 Hgb 13.4 Hct 38.7 MCV 98.6 H MCH 34.1 H MCHC 34.6 RDW 13.0 Plt Count 164 MPV 7.8 Absolute Neuts (auto) 3.0 Neutrophils % 65.7 Lymphocytes % 21.9 D Monocytes % 8.0 Eosinophils % 3.3 D Basophils % 1.1 Nucleated RBC % 0 PT with INR 12.10 INR 1.07 PTT (Actin FS) 29.7 Sodium Potassium Chloride Carbon Dioxide Anion Gap BUN Creatinine Creat Clearance w eGFR POC Glucometer Random Glucose Calcium Phosphorus Magnesium Total Bilirubin AST ALT Alkaline Phosphatase Creatine Kinase Troponin I < 0.02 Total Protein Albumin Opiates Screen Methadone Screen Barbiturate Screen Phencyclidine Screen Ur Amphetamines Screen MDMA (Ecstasy) Screen Benzodiazepines Screen Cocaine Screen U Marijuana (THC) Screen 09/16/17 09/16/17 06:00 09:31 WBC RBC Hgb Hct MCV MCH MCHC RDW Plt Count MPV Absolute Neuts (auto) Neutrophils % Lymphocytes % Monocytes % Eosinophils % Basophils % Nucleated RBC % PT with INR INR PTT (Actin FS) Sodium 143 Potassium 3.8 Chloride 110 H Carbon Dioxide 26 Anion Gap 7 L BUN 10 Creatinine 0.7 Creat Clearance w eGFR > 60 POC Glucometer 85.39687 Random Glucose 76 Calcium 8.4 L Phosphorus 3.9 Magnesium 2.0 Total Bilirubin 0.7 AST 12 L ALT 18 Alkaline Phosphatase 66 Creatine Kinase Troponin I Total Protein 5.9 L Albumin 3.3 L Opiates Screen Methadone Screen Barbiturate Screen Phencyclidine Screen Ur Amphetamines Screen MDMA (Ecstasy) Screen Benzodiazepines Screen Cocaine Screen U Marijuana (THC) Screen Active Medications Generic Name Dose Route Start Last Admin Trade Name Freq PRN Reason Stop Dose Admin Acetaminophen 1,000 mg 09/16/17 07:44 09/16/17 09:06 Ofirmev Injection - IVPB 1,000 mg Q6H PRN Administration PAIN LEVEL 6-10 Alprazolam 1 mg 09/15/17 22:30 09/16/17 07:33 Xanax - PO 1 mg TID JULY Administration Cephalexin HCl 500 mg 09/15/17 18:00 09/16/17 12:08 Keflex - PO 500 mg Q6HPO JULY Administration Chlorhexidine Gluconate 1 applic 09/15/17 22:00 Hibiclens For Decolonization - TP HS [facility] Dextrose/Sodium Chloride 1,000 mls @ 75 mls/hr 09/15/17 18:00 09/15/17 18:54 D5-Ns - IV 75 mls/hr ASDIR JULY Administration Levetiracetam 500 mg 09/15/17 22:00 09/16/17 09:05 Keppra - PO 500 mg BID JULY Administration Lidocaine 1 patch 09/15/17 18:00 09/16/17 09:05 Lidoderm Patch - TP 1 patch DAILY JULY Administration Miscellaneous 1 each 09/15/17 22:00 09/16/17 00:09 Lidoderm Patch Removal MC 1 each DAILY@2200 JULY Administration Mupirocin 1 applic 09/15/17 22:00 Bactroban Ointment (For Decolonization) - NS 09/20/17 21:59 BID JULY Trazodone HCl 100 mg 09/15/17 22:00 09/15/17 23:01 Desyrel - PO 100 mg HS [facility] Administration Trimethoprim/Sulfamethoxazole 1 each 09/15/17 22:00 09/16/17 09:05 Bactrim Ds - PO 1 each BID JULY Administration ASSESSMENT/PLAN: Subdural hematoma Mechanical fall Alcohol abuse Questionable alcohol withdrawals Parasthesias of distal extremity S/P Bariatric surgery Neuro: Subdural hematoma noted on imaging MRI/MRA f/u today Obtain [facility] records to r/o acute vs. chronic venous sinus infarct Continue Keppra 500mg BID PO Neurology recommendations appreciated --Will discuss about possibility of Decadron for vasogenic edema Neurosurgery recommends medical management only Neuro checks Hold Trazodone for now Respiratory: Not in distress Cardiovascular: Hemodynamically stable GI: Likely parasthesias related to vitamin deficiency in setting of bariatric surgery and alcohol dependence --B12, folate, selenium levels to be obtained MSK: Ortho consulted for injury s/p fall Ofirmev IV PRN for pain LIdoderm patch for pain No narcotics in lieu of subdural hematoma Substance abuse: Ativan on board Monitor for signs of withdrawal --Will change to Librium 25mg PRN for withdrawal signs; librium protocol can be initiated if pt begins to withdraw FEN: Fluids: Avoid; tolerating PO Electrolyte abnormalities: None currently Nutrition: Regular diet PPX: DVT - No AP/AC due to hematoma; SCDs Dispo: Monitor in ICU for neuro checks; if stable can transfer to floors in AM Case discussed with Dr. Cooper and Dr. Vidal Corbin, DO - IM PGY-2 Visit type - Emergency Visit Emergency Visit: No - New Patient This patient is new to me today: No - Critical Care Critical Care patient: Yes Total Critical Care Time (in minutes): 35 Critical Care Statement: The care of this patient involved high complexity decision making to prevent further life threatening deterioration of the patient 's condition and/or to evaluate & treat vital organ system(s) failure or risk of failure. - Discharge Referral Referred to [facility] Med P.C.: No
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
[2017-09-16 12:57] VITALS: BMI 27.1
[2017-09-16] MEDS ORDERED: HALOPERIDOL LACTATE 5 MG/ML ONE (13:17)
[2017-09-16] MEDS ORDERED: LORazepam 2 MG/ML SDV VIAL ONE (13:19)
--- NOTE | 2017-09-16 13:24 | PN ---
Teaching Attending Note Name of Resident: Miguel Angel Corbin ATTENDING PHYSICIAN STATEMENT I saw and evaluated the patient. I reviewed the resident's note and discussed the case with the resident. I agree with the resident's findings and plan as documented. SUBJECTIVE: Pt seen and examined in the ICU. Briefly, 57 year old female with h/o alcohol dependence who was seen at [facility] on 09/12 and found to have a right subdural hematoma and right arm cellulitis, discharged on 09/13. Presents today with altered mental status, headache and hallucinations. CT and MRI brain here showing right temporal subdural hematoma. OBJECTIVE: Vital Signs Period Temp Pulse Resp BP Sys/Cho Pulse Ox Last 24 Hr 98 F-98.6 F 60-81 16-17 127-156/69-106 97-98 Intake & Output 09/13/17 09/14/17 09/15/17 09/16/17 23:59 23:59 23:59 23:59 Weight 65.771 kg 67.132 kg Gen: confused, hallucinating Heart: RRR Lung: decreased breath sounds at the bases Abd: soft, nontender Ext: no edema CBC, BMP 09/16/17 06:00 09/16/17 06:00 Active Medications Acetaminophen (Ofirmev Injection -) 1,000 mg IVPB Q6H PRN PRN Reason: PAIN LEVEL 6-10 Last Admin: 09/16/17 09:06 Dose: 1,000 mg Alprazolam (Xanax -) 1 mg PO TID ON LICENSE OF [facility] Last Admin: 09/16/17 07:33 Dose: 1 mg Cephalexin HCl (Keflex -) 500 mg PO Q6HPO ON LICENSE OF [facility] Last Admin: 09/16/17 12:08 Dose: 500 mg Chlorhexidine Gluconate (Hibiclens For Decolonization -) 1 applic TP HS ON LICENSE OF [facility] Dextrose/Sodium Chloride (D5-Ns -) 1,000 mls @ 75 mls/hr IV ASDIR ON LICENSE OF [facility] Last Admin: 09/15/17 18:54 Dose: 75 mls/hr Levetiracetam (Keppra -) 500 mg PO BID ON LICENSE OF [facility] Last Admin: 09/16/17 09:05 Dose: 500 mg Lidocaine (Lidoderm Patch -) 1 patch TP DAILY ON LICENSE OF [facility] Last Admin: 09/16/17 09:05 Dose: 1 patch Miscellaneous (Lidoderm Patch Removal) 1 each MC DAILY@2200 ON LICENSE OF [facility] Last Admin: 09/16/17 00:09 Dose: 1 each Mupirocin (Bactroban Ointment (For Decolonization) -) 1 applic NS BID ON LICENSE OF [facility] Stop: 09/20/17 21:59 Trazodone HCl (Desyrel -) 100 mg PO HS ON LICENSE OF [facility] Last Admin: 09/15/17 23:01 Dose: 100 mg Trimethoprim/Sulfamethoxazole (Bactrim Ds -) 1 each PO BID ON LICENSE OF [facility] Last Admin: 09/16/17 09:05 Dose: 1 each ASSESSMENT AND PLAN: Subdural Hematoma ?Fall Alcohol Dependence r/o Alcohol Withdrawal Cellulitis - neuro checks - on empiric antiepileptics - start librium protocol - IVF - vitamin replacement - continue antibiotics for cellulitis - mechanical DVT prophylaxis
[2017-09-16] MEDS ORDERED: HALOPERIDOL LACTATE 5 MG/ML IVPUSH ONE (13:29)
[2017-09-16] MEDS ORDERED: DEXAMETHASONE SOD PHOSPHATE 10 MG/1 ML VIAL IVPUSH ONE (14:48)
[2017-09-16] MEDS ORDERED: PT OWN MED DRAWER 7, Y5N ONE ×2 (17:05→21:44)
[2017-09-16] MEDS: ACETAMINOPHEN/CAFFEINE/BUTALBITAL 1 TAB PO PRN ×2 (17:08→22:49)
--- NOTE | 2017-09-16 19:51 | EKG ---
Test Reason : Blood Pressure : / mmHG Vent. Rate : 064 BPM Atrial Rate : 064 BPM P-R Int : 112 ms QRS Dur : 088 ms QT Int : 390 ms P-R-T Axes : 034 067 031 degrees QTc Int : 402 ms POOR DATA QUALITY, INTERPRETATION MAY BE ADVERSELY AFFECTED NORMAL SINUS RHYTHM NORMAL ECG WHEN COMPARED WITH ECG OF 15-SEP-2017 13:30, NO SIGNIFICANT CHANGE WAS FOUND Confirmed by MARY GREY, AMEENA ([id number]) on 09/16/2017 7:51:29 PM Referred By: Confirmed By:AMEENA HERNANDEZ MD
[2017-09-16] MEDS ORDERED: ACETAMINOPHEN 325 MG TABLET (FP) ONE (19:58)
[2017-09-16] MEDS ORDERED: ACETAMINOPHEN 325 MG TABLET (FP) PO ONE (20:00)
[2017-09-16] MEDS: chlordiazePOXIDE HCL 25 MG CAPSULE PO PRN (20:02)
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
[2017-09-16] MEDS: TOPIRAMATE 25 MG TABLET (FP) PO SCH (21:56)
[2017-09-16] MEDS: FAMOTIDINE 20 MG/50 ML IVPB 20 MG/50 ML MG IVPB SCH (21:57)
[2017-09-16] MEDS: traZODone HCL 50 MG TABLET (FP) PO SCH (21:57)
[2017-09-16] MEDS: CHLORHEXIDINE GLUCONATE 4% CLEANSER FOR DECOLONIZATION TP SCH (21:58)
[2017-09-17] MEDS: ALPRAZolam 0.25 MG TABLET PO SCH (05:30)
[2017-09-17] MEDS: ACETAMINOPHEN/CAFFEINE/BUTALBITAL 1 TAB PO PRN ×2 (05:30→20:00)
[2017-09-17] MEDS: CEPHALEXIN MONOHYDRATE 500 MG CAPSULE (UD) PO SCH ×4 (05:31→23:18)
[2017-09-17 06:06] LABS: HEMATOCRIT 39.5 % (32.4-45.2); HEMOGLOBIN 13.8 GM/dL (10.7-15.3); MCH 34.4 pg (25.7-33.7); MCHC 34.9 g/dl (32.0-36.0); MEAN CELL VOLUME 98.6 fl (80-96); MEAN PLT VOLUME 7.9 fl (7.5-11.1); PLATELET COUNT 192 K/MM3 (134-434); RDW 13.2 % (11.6-15.6)
[2017-09-17 06:31] LABS: ALBUMIN 3.5 g/dl (3.4-5.0); ANION GAP 3 (8-16); BILIRUBIN,TOTAL 0.3 mg/dL (0.2-1.0); BLOOD UREA NITROGEN 12 mg/dL (7-18); CALCIUM 8.7 mg/dL (8.5-10.1); CHLORIDE 112 mmol/L (98-107); CO2 25 mmol/L (21-32); CREATININE 0.8 mg/dL (0.55-1.02); GLUCOSE,RANDOM 121 mg/dL (74-106); PHOSPHOROUS 3.7 mg/dL (2.5-4.9); SGOT/AST 9 U/L (15-37); SGPT/ALT 18 U/L (12-78); SODIUM 140 mmol/L (136-145); TOT PROT 6.3 g/dl (6.4-8.2)
[2017-09-17 06:53] LABS: ALK PHOS 68 U/L (45-117)
--- NOTE | 2017-09-17 09:10 | PN ---
Physical Exam: SUBJECTIVE: Patient seen and examined at bedside in the ICU. Still with headache, dizziness , "room is spinning". Had episode of panic attack this morning where she was hallucinating again. yesterday had hallucinations and received haldol. complaining also of numbness in hands L>R. Denies any fevers, chills, SOB, CP, tremors, palpitations, diaphoresis, Abd pain, urinary sxs, OBJECTIVE: Vital Signs Period Temp Pulse Resp BP Sys/Cho Pulse Ox Last 24 Hr 97.4 F-98.4 F 60-72 15-18 97-151/49-106 97-99 GENERAL: AAO3 , seems anxious HEAD: NCAT EYES: MARIO, EOMI , sclera anicteric, conjunctiva clear. ENT: nares patent, oropharynx clear without exudates. MMM NECK: Normal range of motion, supple without JVD, LUNGS: CTA B/L . No wheezes, and no crackles. No accessory muscle use. HEART: RRR, normal S1 and S2 without murmur, rub or gallop. ABDOMEN: Soft, NTND +BS, no guarding, no rebound, MUSCULOSKELETAL: Normal range of motion at all joints. No bony deformities , nonfocal back tenderness. UPPER EXTREMITIES: 2+ pulses, warm, well-perfused. No cyanosis. No clubbing. No peripheral edema. LOWER EXTREMITIES: 2+ pulses, warm, well-perfused. No calf tenderness. No peripheral edema. NEUROLOGICAL: Cranial nerves II-XII intact. Normal speech. gait not observed. FTN nl. sensation and strength grossly intact 5/5 PSYCHIATRIC: Cooperative. Good eye contact, anxious. SKIN: Warm, dry, normal turgor, no rashes or lesions noted, normal capillary refill. Laboratory Results - last 24 hr 09/16/17 09/16/17 09/17/17 06:00 09:31 05:30 WBC 6.0 RBC 4.00 Hgb 13.8 Hct 39.5 MCV 98.6 H MCH 34.4 H MCHC 34.9 RDW 13.2 Plt Count 192 MPV 7.9 Sodium Potassium Chloride Carbon Dioxide Anion Gap BUN Creatinine Creat Clearance w eGFR POC Glucometer 85.40624 Random Glucose Calcium Phosphorus Magnesium Total Bilirubin AST ALT Alkaline Phosphatase Total Protein Albumin Vitamin B12 337 Serum Folate 09/17/17 05:30 WBC RBC Hgb Hct MCV MCH MCHC RDW Plt Count MPV Sodium 140 Potassium 4.0 Chloride 112 H Carbon Dioxide 25 Anion Gap 3 L BUN 12 Creatinine 0.8 Creat Clearance w eGFR > 60 POC Glucometer Random Glucose 121 H Calcium 8.7 Phosphorus 3.7 Magnesium 2.0 Total Bilirubin 0.3 AST 9 L ALT 18 Alkaline Phosphatase 68 Total Protein 6.3 L Albumin 3.5 Vitamin B12 Serum Folate 6 Active Medications Generic Name Dose Route Start Last Admin Trade Name Freq PRN Reason Stop Dose Admin Acetaminophen/Butalbital/Caffeine 1 tablet 09/16/17 14:50 09/17/17 05:30 Fioricet - PO 09/19/17 14:50 1 tablet Q6H PRN Administration FEVER Alprazolam 1 mg 09/15/17 22:30 09/17/17 05:30 Xanax - PO 1 mg TID JULY Administration Cephalexin HCl 500 mg 09/15/17 18:00 09/17/17 05:31 Keflex - PO 500 mg Q6HPO JULY Administration Chlordiazepoxide HCl 25 mg 09/16/17 16:13 09/16/17 20:02 Librium - PO 25 mg Q6H PRN Administration WITHDRAWAL(CONT SUBST) Chlorhexidine Gluconate 1 applic 09/15/17 22:00 09/16/17 21:58 Hibiclens For Decolonization - TP 1 applic HS JULY Administration Famotidine/Sodium Chloride 20 mg in 50 mls @ 100 mls/hr 09/16/17 22:00 21:57 Pepcid 20 Mg Premixed Ivpb - IVPB 100 mls/hr BID JULY Administration Lidocaine 1 patch 09/15/17 18:00 09/16/17 09:05 Lidoderm Patch - TP 1 patch DAILY JULY Administration Miscellaneous 1 each 09/15/17 22:00 09/16/17 21:57 Lidoderm Patch Removal MC 1 each DAILY@2200 JULY Administration Mupirocin 1 applic 09/17/17 22:00 Bactroban Ointment (For Decolonization) - NS 09/22/17 21:59 BID JULY Nicotine 21 mg 09/17/17 10:00 Nicoderm Patch - TD DAILY JULY Topiramate 50 mg 09/16/17 22:00 09/16/17 21:56 Topamax - PO 50 mg BID JULY Administration Trazodone HCl 100 mg 09/17/17 22:00 Desyrel - PO HS JULY Trimethoprim/Sulfamethoxazole 1 each 09/15/17 22:00 09/16/17 21:57 Bactrim Ds - PO 1 each BID JULY Administration ASSESSMENT/PLAN: 57yo F with PMH of COPD, gastric sleeve, and depression, recent mechanical fall and intracranial bleed (last sunday at [facility] ) presenting with headache.and left shoulder pain admitted to ICU for SDH and Intra parenchymal bleed monitoring #Temporal ICH w/ vasogenic edema - CT shows little mass effect and acute SDH. Repeat CT - concern for venous sinus thrombosis and venous infarct. [facility] transfer center/neurosurgery Dr. Mera, prior CT brain read at [facility] was reportedly similar to our CT images and was suggestive of contusion. MRI/MRA/MRV neg for concerns of venous sinus thrombosis * Neurosurgery consulted with Dr. Drake, recommends medical management only * Neuro exam non concerning. can be monitored on the floor * s/p decadron x 1. Keppra changed to topamax. * Seizure precautions, follow up EEG. * Pain control with IV tylenol/lidocaine * avoid narcotics, can worsen dizziness and risk of falls. * avoid ibuprofen, Naproxen or any other NSAIDs * Drug screen - positive for marihuana * PT eval inpatient if no new concerns overnight. #hallucinations - possibly 2/2 Etoh withdrawl. has heavy drinking hx, cannot give clear hx in terms when was last drink. seizures or psychosocial also on the differential -librium protocol -neuro checks -vitamin replacement -Monitor for signs of withdrawal -Psychiatry consult. #Depression/anxiety - hallucinations and anxious -Psychiatry consult. #Atypical chest pain - suspect musculoskeletal. * presentation not consistent with ACS. EKG unremarkable. Not a candidate for full dose AC and not a candidate for elective cardiac w/u untill bleed concerns have resolved. * cardiac enzymes - neg x2 * Telemetry #back pain * generalized with no point tenderness or spasm * Pain control with IV tylenol/lidocaine * No narcotics in lieu of subdural hematoma * ortho consult #cellulitis * cont keflex/bactrim per outpatient for now. * bactrim BID * d/c in 1-2 days if no new concerns. # COPD * stable * not on any meds * counseled about smoking cessation # Depression /anxiety * cont home meds Xanax 1 mg TID , * hold for now Trazadon 100 mg HS # FEN * F:no IVF * E: WNL * N :Regular diet # Proph * DVTS: early ambulations , scds , No AP/AC due to hematoma; SCDs * # dispo * pt improving can be transfer out of ICU and monitor on floor * PT eval * SW consult Total critical care time 45min Visit type - Emergency Visit Emergency Visit: Yes ED Registration Date: 09/15/17 Care time: The patient presented to the Emergency Department on the above date and was hospitalized for further evaluation of their emergent condition. - New Patient This patient is new to me today: Yes Date on this admission: 09/17/17 - Critical Care Critical Care patient: No
[2017-09-17] MEDS ORDERED: PT OWN MED DRAWER 7, Y5N ONE ×2 (09:13→21:06)
[2017-09-17] MEDS: NICOTINE 21 MG/24 HOURS TOPICAL PATCH TD SCH (09:39)
[2017-09-17] MEDS: FAMOTIDINE 20 MG/50 ML IVPB 20 MG/50 ML MG IVPB SCH ×2 (09:39→21:09)
[2017-09-17] MEDS: SULFAMETHOXAZOLE/TRIMETHOPRIM 800MG/160MG D.S. TABLET PO SCH ×2 (09:40→21:09)
[2017-09-17] MEDS: TOPIRAMATE 25 MG TABLET (FP) PO SCH ×2 (09:40→21:09)
[2017-09-17] MEDS: LIDOCAINE 5% TOPICAL PATCH TP SCH (09:41)
[2017-09-17] MEDS ORDERED: oxyCODONE HCL 5 MG TABLET PO ONE (10:30)
[2017-09-17] MEDS ORDERED: METOCLOPRAMIDE HCL INJECTION 10 MG/2 ML VIAL IM ONE (10:30)
[2017-09-17] MEDS ORDERED: ACETAMINOPHEN 325 MG TABLET (FP) PO ONE (10:30)
[2017-09-17] MEDS ORDERED: LORazepam 2 MG/ML SDV VIAL ONE ×2 (10:58→14:38)
[2017-09-17] MEDS ORDERED: LORazepam 2 MG/ML SDV VIAL IVPUSH ONE (10:59)
[2017-09-17] MEDS: chlordiazePOXIDE HCL 25 MG CAPSULE PO PRN (11:30)
--- NOTE | 2017-09-17 11:51 | EKG ---
Test Reason : Blood Pressure : / mmHG Vent. Rate : 066 BPM Atrial Rate : 066 BPM P-R Int : 116 ms QRS Dur : 090 ms QT Int : 384 ms P-R-T Axes : 056 069 040 degrees QTc Int : 402 ms NORMAL SINUS RHYTHM NORMAL ECG NO PREVIOUS ECGS AVAILABLE Confirmed by GOLDEN MUNIZ MD ([id number]) on 09/17/2017 11:50:52 AM Referred By: Confirmed By:GOLDEN MUNIZ MD
--- NOTE | 2017-09-17 12:26 | PN ---
Teaching Attending Note Name of Resident: Joni Devi ATTENDING PHYSICIAN STATEMENT I saw and evaluated the patient. I reviewed the resident's note and discussed the case with the resident. I agree with the resident's findings and plan as documented. SUBJECTIVE: Pt seen and examined in the ICU. Still with headache, dizziness. Had episode of panic attack during rounds where she was hallucinating again. OBJECTIVE: Vital Signs Period Temp Pulse Resp BP Sys/Cho Pulse Ox Last 24 Hr 97.4 F-98.0 F 60-72 15-18 97-142/49-92 99-99 Intake & Output 09/14/17 09/15/17 09/16/17 09/17/17 23:59 23:59 23:59 23:59 Intake Total 750 200 Balance 750 200 Weight 65.771 kg 67.132 kg Gen: anxious Heart: RRR Lung: decreased breath sounds at the bases Abd: soft, nontender Ext: no edema CBC, BMP 09/17/17 05:30 09/17/17 05:30 Active Medications Acetaminophen/Butalbital/Caffeine (Fioricet -) 1 tablet PO Q6H PRN PRN Reason: FEVER Stop: 09/19/17 14:50 Last Admin: 09/17/17 05:30 Dose: 1 tablet Cephalexin HCl (Keflex -) 500 mg PO Q6HPO [facility] Last Admin: 09/17/17 05:31 Dose: 500 mg Chlordiazepoxide HCl (Librium -) 25 mg PO Q6H PRN PRN Reason: WITHDRAWAL(CONT SUBST) Last Admin: 09/16/17 20:02 Dose: 25 mg Chlordiazepoxide HCl (Librium -) 50 mg PO [id number] [facility] Stop: 09/18/17 11:01 Chlordiazepoxide HCl (Librium -) 25 mg PO [id number]-ECG [facility] Stop: 09/19/17 11:01 Chlordiazepoxide HCl (Librium -) 15 mg PO C1G-LGA [facility] Stop: 09/20/17 11:01 Chlordiazepoxide HCl (Librium -) 10 mg PO I9V-LDF [facility] Stop: 09/21/17 11:01 Chlorhexidine Gluconate (Hibiclens For Decolonization -) 1 applic TP HS [facility] Last Admin: 09/16/17 21:58 Dose: 1 applic Famotidine/Sodium Chloride (Pepcid 20 Mg Premixed Ivpb -) 20 mg in 50 mls @ 100 mls/hr IVPB BID [facility] Last Admin: 09/17/17 09:39 Dose: 100 mls/hr Lidocaine (Lidoderm Patch -) 1 patch TP DAILY [facility] Last Admin: 09/17/17 09:41 Dose: 1 patch Miscellaneous (Lidoderm Patch Removal) 1 each MC DAILY@2200 [facility] Last Admin: 09/16/17 21:57 Dose: 1 each Mupirocin (Bactroban Ointment (For Decolonization) -) 1 applic NS BID [facility] Stop: 09/22/17 21:59 Nicotine (Nicoderm Patch -) 21 mg TD DAILY [facility] Last Admin: 09/17/17 09:39 Dose: 21 mg Topiramate (Topamax -) 50 mg PO BID [facility] Last Admin: 09/17/17 09:40 Dose: 50 mg Trazodone HCl (Desyrel -) 100 mg PO [facility] Trimethoprim/Sulfamethoxazole (Bactrim Ds -) 1 each PO BID [facility] Last Admin: 09/17/17 09:40 Dose: 1 each ASSESSMENT AND PLAN: Subdural Hematoma ?Fall Alcohol Dependence r/o Alcohol Withdrawal Cellulitis Anxiety - neuro checks - on empiric antiepileptics - librium protocol - vitamin replacement - continue antibiotics for cellulitis - mechanical DVT prophylaxis - can monitor on floor
[2017-09-17] MEDS ORDERED: HALOPERIDOL LACTATE 5 MG/ML IM ONE (14:40)
[2017-09-17] MEDS: chlordiazePOXIDE HCL 25 MG CAPSULE PO SCH ×2 (17:06→23:18)
--- NOTE | 2017-09-17 17:28 | PN ---
Teaching Attending Note Name of Resident: Benjamin Camargo ATTENDING PHYSICIAN STATEMENT I saw and evaluated the patient. I reviewed the resident's note and discussed the case with the resident. I agree with the resident's findings and plan as documented with exceptions below. SUBJECTIVE: Patient seen and examined, doing well, denies any hallucinations currently. No headache, dizziness or pain at this point. Feels well, tolerating diet. OBJECTIVE: Vital Signs Period Temp Pulse Resp BP Sys/Cho Pulse Ox Last 24 Hr 97.4 F-98.4 F 60-71 15-18 97-162/49-84 99-99 Intake & Output 09/14/17 09/15/17 09/16/17 09/17/17 23:59 23:59 23:59 23:59 Intake Total 750 600 Balance 750 600 Weight 145 lb 148 lb 148 lb General: sitting in bed in no acute distress Chest: CTAB, no rales or wheezing Abdomen:Soft, obese, NT Extremities; no edema Neuro: AAOx3, power 5/5,unchanged exam from yesterday, no hallucinations currently Active Medications Acetaminophen/Butalbital/Caffeine (Fioricet -) 1 tablet PO Q6H PRN PRN Reason: FEVER Stop: 09/19/17 14:50 Last Admin: 09/17/17 05:30 Dose: 1 tablet Cephalexin HCl (Keflex -) 500 mg PO Q6HPO [facility] Last Admin: 09/17/17 17:06 Dose: 500 mg Chlordiazepoxide HCl (Librium -) 25 mg PO Q6H PRN PRN Reason: WITHDRAWAL(CONT SUBST) Last Admin: 09/17/17 11:30 Dose: 25 mg Chlordiazepoxide HCl (Librium -) 50 mg PO C0V-FUW [facility] Stop: 09/18/17 11:01 Last Admin: 09/17/17 17:06 Dose: 50 mg Chlordiazepoxide HCl (Librium -) 25 mg PO [id number]-GKM [facility] Stop: 09/19/17 11:01 Chlordiazepoxide HCl (Librium -) 15 mg PO F1U-VQA [facility] Stop: 09/20/17 11:01 Chlordiazepoxide HCl (Librium -) 10 mg PO T4D-VGT [facility] Stop: 09/21/17 11:01 Chlorhexidine Gluconate (Hibiclens For Decolonization -) 1 applic TP [facility] Last Admin: 09/16/17 21:58 Dose: 1 applic Famotidine/Sodium Chloride (Pepcid 20 Mg Premixed Ivpb -) 20 mg in 50 mls @ 100 mls/hr IVPB BID [facility] Last Admin: 09/17/17 09:39 Dose: 100 mls/hr Lidocaine (Lidoderm Patch -) 1 patch TP DAILY [facility] Last Admin: 09/17/17 09:41 Dose: 1 patch Miscellaneous (Lidoderm Patch Removal) 1 each MC DAILY@2200 [facility] Last Admin: 09/16/17 21:57 Dose: 1 each Multivitamins/Minerals/Vitamin C (Tab-A-Vit -) 1 tab PO DAILY [facility] Mupirocin (Bactroban Ointment (For Decolonization) -) 1 applic NS BID [facility] Stop: 09/22/17 21:59 Nicotine (Nicoderm Patch -) 21 mg TD DAILY [facility] Last Admin: 09/17/17 09:39 Dose: 21 mg Quetiapine Fumarate (Seroquel -) 25 mg PO HS@2000 [facility] Thiamine HCl (Vitamin B1 -) 100 mg PO DAILY [facility] Topiramate (Topamax -) 50 mg PO BID [facility] Last Admin: 09/17/17 09:40 Dose: 50 mg Trazodone HCl (Desyrel -) 100 mg PO HS [facility] Trimethoprim/Sulfamethoxazole (Bactrim Ds -) 1 each PO BID [facility] Last Admin: 09/17/17 09:40 Dose: 1 each Laboratory Results - last 24 hr 09/17/17 09/17/17 09/17/17 05:30 05:30 05:30 WBC 6.0 RBC 4.00 Hgb 13.8 Hct 39.5 MCV 98.6 H MCH 34.4 H MCHC 34.9 RDW 13.2 Plt Count 192 MPV 7.9 ESR 8 Sodium 140 Potassium 4.0 Chloride 112 H Carbon Dioxide 25 Anion Gap 3 L BUN 12 Creatinine 0.8 Creat Clearance w eGFR > 60 Random Glucose 121 H Calcium 8.7 Phosphorus 3.7 Magnesium 2.0 Total Bilirubin 0.3 AST 9 L ALT 18 Alkaline Phosphatase 68 Total Protein 6.3 L Albumin 3.5 Serum Folate 6 RPR Titer 09/17/17 05:30 WBC RBC Hgb Hct MCV MCH MCHC RDW Plt Count MPV ESR Sodium Potassium Chloride Carbon Dioxide Anion Gap BUN Creatinine Creat Clearance w eGFR Random Glucose Calcium Phosphorus Magnesium Total Bilirubin AST ALT Alkaline Phosphatase Total Protein Albumin Serum Folate RPR Titer Nonreactive ASSESSMENT AND PLAN: 57 yof, recently admitted to [facility] with reproted ICH/SDH, d/audrey on keppra/ antibiotics, comes back with persistent headache/dizziness and atypical chest pain -Temporal ICH with vasogenic edema with mass effect and acute SDH -Hallucinations, ?DTs from underlying psychosocial stressors high on differential, cannot r/o ?seizure activity given cerebral edema/haemorrhage -Atypical chest pain, suspect musculoskeletal,resolved -Generalized non specific back pain with no point tenderness or spasm -Recent ?RUE cellulitis from trauma Plan: CT head stable. MRI/MRA/MRV neg for venous sinus thrombosis. Neuro exam non concerning. Neurosurgery input noted. Neurology input noted. s/p decadron x 1. Keppra changed to topamax. Seizure precautions, follow up EEG. Librium detox protocol. Drug screen positive for marihuana. Psychiatry consult. Pain control with tylenol/lidocaine patch, avoid narcotics fo rnow. Continue abx bactrim/keflex per outpatient, d/c in 1-2 days if no new concerns. DVTPPX with SCDs PT eval, social work consult. Dispo pending clincal improvement. Agree with transfer out of ICU. Care co-ordinated with ICU. Total critical care time spent 40 min.
[2017-09-17] MEDS ORDERED: QUEtiapine FUMARATE 25 MG TABLET (FP) PO SCH (20:00)
--- NOTE | 2017-09-17 20:11 | PN ---
Physical Exam: SUBJECTIVE: Patient seen and examined this am and evening in icu. Pt resting in bed, at bedside. During morning rounds this am, patient started to hallucinate and saw unidentified images on ceiling. Still endorses pain in head and rest of body. OBJECTIVE: Vital Signs Period Temp Pulse Resp BP Sys/Cho Pulse Ox Last 24 Hr 97.4 F-98.4 F 60-71 15-18 95-162/49-84 99-99 GENERAL: Alert, Acute distress. Generalized pain. HEAD: NC/AT. Lump left side of head s/p fall? EYES: EOMI. ENT: MMM. NECK: Trachea midline, full range of motion, supple. LUNGS: CTA B/L HEART: RRR, MRG, S1, S2 ABDOMEN: ND, NT, No HSM EXTREMITIES: No CCE NEUROLOGICAL: Cranial nerves II through XII grossly intact. Normal speech, gait not observed. PSYCH: Hallucinations, paranoid, anxious. SKIN: Cellulitis Laboratory Results - last 24 hr 09/17/17 09/17/17 09/17/17 05:30 05:30 05:30 WBC 6.0 RBC 4.00 Hgb 13.8 Hct 39.5 MCV 98.6 H MCH 34.4 H MCHC 34.9 RDW 13.2 Plt Count 192 MPV 7.9 ESR 8 Sodium 140 Potassium 4.0 Chloride 112 H Carbon Dioxide 25 Anion Gap 3 L BUN 12 Creatinine 0.8 Creat Clearance w eGFR > 60 Random Glucose 121 H Calcium 8.7 Phosphorus 3.7 Magnesium 2.0 Total Bilirubin 0.3 AST 9 L ALT 18 Alkaline Phosphatase 68 Total Protein 6.3 L Albumin 3.5 Serum Folate 6 RPR Titer 09/17/17 05:30 WBC RBC Hgb Hct MCV MCH MCHC RDW Plt Count MPV ESR Sodium Potassium Chloride Carbon Dioxide Anion Gap BUN Creatinine Creat Clearance w eGFR Random Glucose Calcium Phosphorus Magnesium Total Bilirubin AST ALT Alkaline Phosphatase Total Protein Albumin Serum Folate RPR Titer Nonreactive Active Medications Generic Name Dose Route Start Last Admin Trade Name Freq PRN Reason Stop Dose Admin Acetaminophen/Butalbital/Caffeine 1 tablet 09/16/17 14:50 09/17/17 05:30 Fioricet - PO 09/19/17 14:50 1 tablet Q6H PRN Administration FEVER Cephalexin HCl 500 mg 09/15/17 18:00 09/17/17 17:06 Keflex - PO 500 mg Q6HPO JULY Administration Chlordiazepoxide HCl 25 mg 09/16/17 16:13 09/17/17 11:30 Librium - PO 25 mg Q6H PRN Administration WITHDRAWAL(CONT SUBST) Chlordiazepoxide HCl 50 mg 09/17/17 17:00 09/17/17 17:06 Librium - PO 09/18/17 11:01 50 mg [id number]-KYP JULY Administration Chlordiazepoxide HCl 25 mg 09/18/17 17:00 Librium - PO 09/19/17 11:01 [id number]-[id number] JULY Chlordiazepoxide HCl 15 mg 09/19/17 17:00 Librium - PO 09/20/17 11:01 [id number] JULY Chlordiazepoxide HCl 10 mg 09/20/17 17:00 Librium - PO 09/21/17 11:01 Q8I-FIV J[facility] Chlorhexidine Gluconate 1 applic 09/15/17 22:00 09/16/17 21:58 Hibiclens For Decolonization - TP 1 applic HS [facility] Administration Famotidine/Sodium Chloride 20 mg in 50 mls @ 100 mls/hr 09/16/17 22:00 09:39 Pepcid 20 Mg Premixed Ivpb - IVPB 100 mls/hr BID [facility] Administration Lidocaine 1 patch 09/15/17 18:00 09/17/17 09:41 Lidoderm Patch - TP 1 patch DAILY [facility] Administration Miscellaneous 1 each 09/15/17 22:00 09/16/17 21:57 Lidoderm Patch Removal MC 1 each DAILY@2200 [facility] Administration Multivitamins/Minerals/Vitamin C 1 tab 09/18/17 10:00 Tab-A-Vit - PO DAILY [facility] Mupirocin 1 applic 09/17/17 22:00 Bactroban Ointment (For Decolonization) - NS 09/22/17 21:59 BID [facility] Nicotine 21 mg 09/17/17 10:00 09/17/17 09:39 Nicoderm Patch - TD 21 mg DAILY [facility] Administration Quetiapine Fumarate 25 mg 09/17/17 20:00 Seroquel - PO HS@2000 [facility] Thiamine HCl 100 mg 09/18/17 10:00 Vitamin B1 - PO DAILY [facility] Topiramate 50 mg 09/16/17 22:00 09/17/17 09:40 Topamax - PO 50 mg BID [facility] Administration Trazodone HCl 100 mg 09/17/17 22:00 Desyrel - PO HS [facility]UL[facility] Trimethoprim/Sulfamethoxazole 1 each 09/15/17 22:00 09/17/17 09:40 Bactrim Ds - PO 1 each BID [facility] Administration ASSESSMENT/PLAN: Pt is a 57 y/o lady who was admitted to [facility] ([facility]) on 09/12 and found to have a right sided subdural hematoma located in the temporal region. She was discharged from [facility] ([facility]) on 09/13 on keppra and keflex/ bactrim for right arm cellulitis. Pt presented today to [facility] today with persistent headache, seeing flashing yellow lights, and experiencing a sensation of the room spinning. Pt also states that she has been having radiating chest pain from her left shoulder to her back. Patient endorses that a week ago, she woke up with a severe generalized headache, dizziness, right ankle pain (denies recalling any h/o fall or trauma). Per patient had CT brain x 3 and right ankle imaging and was sent home the next day. She was advised to stop her naprosyn. Neuro: Subdural Hematoma CT head---> Subdural Hematoma right temporal region. MRI/MRA/MRV neg for venous sinus thrombosis. -Keppra D/C'ed. Topamax 50 mg PO BID per Neurology -Librium detox protocol. Drug screen positive for marijuana. -EEG. -Pain control with IV Tylenol/Lidocaine -Decadron 10 mg IVPB Once Hallucinations, Possible Alcohol withdrawal: Librium 10 mg po Q6H -Haldol 2 mg IM given this Afternoon for Hallucinations -Seroquel 25 mg PO -Vitamin replacement-Vitamin B1 Anxiety, Depression: Ativan 2 MG IVPUSH PRN Trazodone HCl Cellulites: 500 mg PO Q6H FEN No Fluids Monitor electrolytes Regular Diet DVT ppx: SCD's Dispo: To transfer to med-surg Visit type - Emergency Visit Emergency Visit: Yes ED Registration Date: 09/15/17 Care time: The patient presented to the Emergency Department on the above date and was hospitalized for further evaluation of their emergent condition. - New Patient This patient is new to me today: No - Critical Care Critical Care patient: Yes Total Critical Care Time (in minutes): 35 Critical Care Statement: The care of this patient involved high complexity decision making to prevent further life threatening deterioration of the patient 's condition and/or to evaluate & treat vital organ system(s) failure or risk of failure.
[2017-09-17] MEDS: CHLORHEXIDINE GLUCONATE 4% CLEANSER FOR DECOLONIZATION TP SCH (21:09)
[2017-09-17] MEDS: MUPIROCIN 2% TOPICAL OINTMENT FOR DECOLONIZATION NS SCH (21:10)
[2017-09-17] MEDS: LIDOCAINE PATCH REMOVAL MC SCH (21:10)
[2017-09-17] MEDS ORDERED: traZODone HCL 100 MG TABLET (FP) PO SCH (22:00)
[2017-09-18] MEDS: ACETAMINOPHEN/CAFFEINE/BUTALBITAL 1 TAB PO PRN ×3 (04:15→17:56)
[2017-09-18] MEDS: chlordiazePOXIDE HCL 25 MG CAPSULE PO SCH ×4 (04:15→22:48)
[2017-09-18] MEDS: CEPHALEXIN MONOHYDRATE 500 MG CAPSULE (UD) PO SCH ×3 (06:21→17:58)
[2017-09-18 06:25] LABS: BASO % 0.7 % (0-2.0); HEMATOCRIT 37.7 % (32.4-45.2); HEMOGLOBIN 12.8 GM/dL (10.7-15.3); LYMPH % 27.7 % (8-40); MCH 33.6 pg (25.7-33.7); MEAN CELL VOLUME 98.9 fl (80-96); MONO % 6.7 % (3.8-10.2); NEUT % 62.9 % (42.8-82.8); PLATELET COUNT 169 K/MM3 (134-434); RBC 3.82 M/mm3 (3.60-5.2); RDW 13.3 % (11.6-15.6); WHITE BLOOD COUNT 6.7 K/mm3 (4.0-10.0)
[2017-09-18 06:48] LABS: ALBUMIN 3.4 g/dl (3.4-5.0); ANION GAP 8 (8-16); BLOOD UREA NITROGEN 15 mg/dL (7-18); CALCIUM 8.7 mg/dL (8.5-10.1); CHLORIDE 114 mmol/L (98-107); CO2 26 mmol/L (21-32); GLUCOSE,RANDOM 79 mg/dL (74-106); MAGNESIUM 2.3 mg/dL (1.8-2.4); PHOSPHOROUS 3.9 mg/dL (2.5-4.9); POTASSIUM 3.9 mmol/L (3.5-5.1); SGOT/AST 12 U/L (15-37); SGPT/ALT 16 U/L (12-78); SODIUM 148 mmol/L (136-145)
[2017-09-18 06:49] LABS: ALK PHOS 67 U/L (45-117); BILIRUBIN,TOTAL 0.5 mg/dL (0.2-1.0); TOT PROT 5.7 g/dl (6.4-8.2)
[2017-09-18] MEDS: LIDOCAINE 5% TOPICAL PATCH TP SCH (09:28)
[2017-09-18] MEDS: PANTOPRAZOLE 20 MG TABLET (FP) PO SCH (09:28)
[2017-09-18] MEDS: NICOTINE 21 MG/24 HOURS TOPICAL PATCH TD SCH (09:28)
[2017-09-18] MEDS: MUPIROCIN 2% TOPICAL OINTMENT FOR DECOLONIZATION NS SCH (09:29)
[2017-09-18] MEDS: TOPIRAMATE 25 MG TABLET (FP) PO SCH ×2 (09:31→22:47)
[2017-09-18] MEDS ORDERED: PT OWN MED DRAWER 7, Y5N ONE (09:31)
[2017-09-18] MEDS: SULFAMETHOXAZOLE/TRIMETHOPRIM 800MG/160MG D.S. TABLET PO SCH ×2 (09:32→22:47)
[2017-09-18] MEDS: THIAMINE HCL 100 MG TABLET (FP) PO SCH (09:36)
[2017-09-18] MEDS: MULTIVITAMINS (DAILY MVI) TABLET (FP) PO SCH (09:36)
--- NOTE | 2017-09-18 10:13 | PN ---
Progress Note, Physician History of Present Illness: events noted and chart review Patient was seen in the medical ICU. Episodes of hallucination with abnormal behavior last night. Patient still complains of neck pain and occipital headache. Patient claims that the one dosage of the Percocet helped. Patient claims that Fioricet did not help. No report of any nausea or photophobia photophobia. Patient was examined in the medical ICU in the presence of the hospitalist and patient's - Current Medication List Current Medications: Active Medications Acetaminophen/Butalbital/Caffeine (Fioricet -) 1 tablet PO Q6H PRN PRN Reason: FEVER Stop: 09/19/17 14:50 Last Admin: 09/18/17 04:15 Dose: 1 tablet Cephalexin HCl (Keflex -) 500 mg PO Q6HPO [facility] Last Admin: 09/18/17 06:21 Dose: 500 mg Chlordiazepoxide HCl (Librium -) 25 mg PO Q6H PRN PRN Reason: WITHDRAWAL(CONT SUBST) Last Admin: 09/17/17 11:30 Dose: 25 mg Chlordiazepoxide HCl (Librium -) 50 mg PO [id number] [facility] Stop: 09/18/17 11:01 Last Admin: 09/18/17 04:15 Dose: 50 mg Chlordiazepoxide HCl (Librium -) 25 mg PO T7J-TDL [facility] Stop: 09/19/17 11:01 Chlordiazepoxide HCl (Librium -) 15 mg PO X4A-CPO [facility] Stop: 09/20/17 11:01 Chlordiazepoxide HCl (Librium -) 10 mg PO Y6H-FQL [facility] Stop: 09/21/17 11:01 Chlorhexidine Gluconate (Hibiclens For Decolonization -) 1 applic TP HS [facility] Last Admin: 09/17/17 21:09 Dose: 1 applic Lidocaine (Lidoderm Patch -) 1 patch TP DAILY [facility] Last Admin: 09/18/17 09:28 Dose: 1 patch Miscellaneous (Lidoderm Patch Removal) 1 each MC DAILY@2200 [facility] Last Admin: 09/17/17 21:10 Dose: 1 each Multivitamins/Minerals/Vitamin C (Tab-A-Vit -) 1 tab PO DAILY [facility] Last Admin: 09/18/17 09:36 Dose: 1 tab Mupirocin (Bactroban Ointment (For Decolonization) -) 1 applic NS BID [facility] Stop: 09/22/17 21:59 Last Admin: 09/18/17 09:29 Dose: 1 applic Nicotine (Nicoderm Patch -) 21 mg TD DAILY [facility] Last Admin: 09/18/17 09:28 Dose: 21 mg Pantoprazole Sodium (Protonix -) 20 mg PO DAILY [facility] Last Admin: 09/18/17 09:28 Dose: 20 mg Quetiapine Fumarate (Seroquel -) 25 mg PO HS@1999 [facility] Last Admin: 09/17/17 20:00 Dose: 25 mg Thiamine HCl (Vitamin B1 -) 100 mg PO DAILY [facility] Last Admin: 09/18/17 09:36 Dose: 100 mg Topiramate (Topamax -) 50 mg PO BID [facility] Last Admin: 09/18/17 09:31 Dose: 50 mg Trazodone HCl (Desyrel -) 100 mg PO [facility] Last Admin: 09/17/17 21:09 Dose: 100 mg Trimethoprim/Sulfamethoxazole (Bactrim Ds -) 1 each PO BID [facility] Last Admin: 09/18/17 09:32 Dose: 1 each - Objective Vital Signs: Vital Signs Temperature 98.0 F 09/18/17 06:00 Pulse Rate 64 09/18/17 07:38 Respiratory Rate 16 09/18/17 07:38 Blood Pressure 124/84 09/18/17 07:38 O2 Sat by Pulse Oximetry (%) 99 09/17/17 20:09 Constitutional: Yes: Well Nourished Eyes: Yes: WNL Neurological: Yes: Alert, Oriented, Babinski negative ...Motor Strength: WNL Labs: CBC, BMP 09/18/17 05:30 09/18/17 05:30 INR, PTT INR 1.07 (0.83-1.09) 09/16/17 06:00 Problem List - Problems (1) Intraparenchymal hematoma of brain Assessment/Plan: traumatic subdural hematoma and traumatic intra-axial lead to bleeding area stable with no expansion Patient is not a candidate for surgical intervention Headache and neck pain questionable cervical causalgia 1. Neurologically patient stable to go to the floor. 2. Seizure precautions. 3. Increase Topamax 100 mg twice daily. 4. Suggest psych evaluation. 5. Tapered P according to the protocol. 6. Flexeril. 7. CAT scan of the cervical spine with no contrast. no Percocet patient has a tendency for drug addiction Code(s): S06.360A - TRAUM HEMOR CEREB, W/O LOSS OF CONSCIOUSNESS, INIT
[2017-09-18] MEDS ORDERED: LORazepam 1 MG TABLET PO PRN (11:22)
[2017-09-18] MEDS: ALPRAZolam 2 MG TABLET PO PRN ×2 (12:26→20:20)
--- NOTE | 2017-09-18 12:48 | CON.PSY ---
Psychiatry Consult Chief Complaint: 57 YEAR OLD [id number] ADMITTED FOR Alcohol detox. patient apparantly began hallucinatingt and became agitated, she was given Haldol and responded well. Symptoms: reports: Irritability, Hallucinations - Previous Psychiatric Treatment Outpatient: None Inpatient: None - Previous Substance Abuse Treatment Outpatient: None Inpatient: None - Reason for Previous Treatment Reason for Previous Treatment: Alcohol Abuse - Current Medications Current Medications: Active Medications Acetaminophen/Butalbital/Caffeine (Fioricet -) 1 tablet PO Q6H PRN PRN Reason: FEVER Stop: 09/19/17 14:50 Last Admin: 09/18/17 11:26 Dose: 1 tablet Alprazolam (Xanax -) 1 mg PO Q8H PRN PRN Reason: ANXIETY Last Admin: 09/18/17 12:26 Dose: 1 mg Cephalexin HCl (Keflex -) 500 mg PO Q6HPO [facility] Last Admin: 09/18/17 11:26 Dose: 500 mg Chlordiazepoxide HCl (Librium -) 25 mg PO Q6H PRN PRN Reason: WITHDRAWAL(CONT SUBST) Last Admin: 09/17/17 11:30 Dose: 25 mg Chlordiazepoxide HCl (Librium -) 25 mg PO C3B-LPQ [facility] Stop: 09/19/17 11:01 Chlordiazepoxide HCl (Librium -) 15 mg PO V8Q-EAA [facility] Stop: 09/20/17 11:01 Chlordiazepoxide HCl (Librium -) 10 mg PO O4K-SJT [facility] Stop: 09/21/17 11:01 Chlorhexidine Gluconate (Hibiclens For Decolonization -) 1 applic TP HS [facility] Last Admin: 09/17/17 21:09 Dose: 1 applic Lidocaine (Lidoderm Patch -) 1 patch TP DAILY [facility] Last Admin: 09/18/17 09:28 Dose: 1 patch Miscellaneous (Lidoderm Patch Removal) 1 each MC DAILY@2200 [facility] Last Admin: 09/17/17 21:10 Dose: 1 each Multivitamins/Minerals/Vitamin C (Tab-A-Vit -) 1 tab PO DAILY [facility] Last Admin: 09/18/17 09:36 Dose: 1 tab Mupirocin (Bactroban Ointment (For Decolonization) -) 1 applic NS BID [facility] Stop: 09/22/17 21:59 Last Admin: 09/18/17 09:29 Dose: 1 applic Nicotine (Nicoderm Patch -) 21 mg TD DAILY [facility] Last Admin: 09/18/17 09:28 Dose: 21 mg Pantoprazole Sodium (Protonix -) 20 mg PO DAILY [facility] Last Admin: 09/18/17 09:28 Dose: 20 mg Thiamine HCl (Vitamin B1 -) 100 mg PO DAILY [facility] Last Admin: 09/18/17 09:36 Dose: 100 mg Topiramate (Topamax -) 50 mg PO BID [facility] Last Admin: 09/18/17 09:31 Dose: 50 mg Trazodone HCl (Desyrel -) 100 mg PO HS [facility] Last Admin: 09/17/17 21:09 Dose: 100 mg Trimethoprim/Sulfamethoxazole (Bactrim Ds -) 1 each PO BID [facility] Last Admin: 09/18/17 09:32 Dose: 1 each - Allergies Allergies: Allergies Allergy/AdvReac Type Severity Reaction Status Date / Time No Known Allergies Allergy Verified 09/15/17 12:40 - Current Living Status Usual Living Arrangement: Alone - Current Mental Status Evaluation Appearance: Disheveled Attitude: Cooperative - Affect Affect: Constrictive Appropriateness: Appropriate to Content - Mood Mood: Euthymic - Speech/Language Expressive: Coherent - Psychomotor Activity Psychomotor Activity: Normal - Thought Process Thought Process: Intact - Thought Content Hallucinations: Absent Delusions: Absent - Self Perception Self Perception: No Impairment - Cognition Attention: Alert Orientation: Time Memory, Immediate Recall: Intact Memory, Short Term: 2/3 Memory, Remote with Promptin/3 - Concentration Serial Sevens Intact: Yes Simple Calculations Intact: Yes - Abstraction Proverb Interpretation: Intact Judgement: Minimally Impaired - Insight Insight: Intact - Impulse Control Impulse Control: Minimally Impaired - Suicidal Ideation Suicidal Ideation: No - Homicidal Ideation Homicidal Ideation: No Assessment/Plan 1) Continue with Detox regimen. @) use Haldol prn for behavioral [id number].
--- NOTE | 2017-09-18 12:48 | PN ---
Teaching Attending Note Name of Resident: Joni Devi ATTENDING PHYSICIAN STATEMENT I saw and evaluated the patient. I reviewed the resident's note and discussed the case with the resident. I agree with the resident's findings and plan as documented. SUBJECTIVE: Pt seen and examined in the ICU. Still with headaches and occasional hallucinations. OBJECTIVE: Vital Signs Period Temp Pulse Resp BP Sys/Cho Pulse Ox Last 24 Hr 98.0 F-98.4 F 54-79 16-18 95-162/51-84 99 Intake & Output 09/15/17 09/16/17 09/17/17 09/18/17 23:59 23:59 23:59 23:59 Intake Total 750 1600 300 Balance 750 1600 300 Weight 65.771 kg 67.132 kg 67.132 kg Gen: anxious Heart: RRR Lung: decreased breath sounds at the bases Abd: soft, nontender Ext: no edema CBC, BMP 09/18/17 05:30 09/18/17 05:30 Active Medications Acetaminophen/Butalbital/Caffeine (Fioricet -) 1 tablet PO Q6H PRN PRN Reason: FEVER Stop: 09/19/17 14:50 Last Admin: 09/18/17 11:26 Dose: 1 tablet Alprazolam (Xanax -) 1 mg PO Q8H PRN PRN Reason: ANXIETY Last Admin: 09/18/17 12:26 Dose: 1 mg Cephalexin HCl (Keflex -) 500 mg PO Q6HPO JULY Last Admin: 09/18/17 11:26 Dose: 500 mg Chlordiazepoxide HCl (Librium -) 25 mg PO Q6H PRN PRN Reason: WITHDRAWAL(CONT SUBST) Last Admin: 09/17/17 11:30 Dose: 25 mg Chlordiazepoxide HCl (Librium -) 25 mg PO [id number] JULY Stop: 09/19/17 11:01 Chlordiazepoxide HCl (Librium -) 15 mg PO [id number] JULY Stop: 09/20/17 11:01 Chlordiazepoxide HCl (Librium -) 10 mg PO [id number] JULY Stop: 09/21/17 11:01 Chlorhexidine Gluconate (Hibiclens For Decolonization -) 1 applic TP HS [facility] Last Admin: 09/17/17 21:09 Dose: 1 applic Lidocaine (Lidoderm Patch -) 1 patch TP DAILY JULY Last Admin: 09/18/17 09:28 Dose: 1 patch Miscellaneous (Lidoderm Patch Removal) 1 each MC DAILY@2200 [facility] Last Admin: 09/17/17 21:10 Dose: 1 each Multivitamins/Minerals/Vitamin C (Tab-A-Vit -) 1 tab PO DAILY [facility] Last Admin: 09/18/17 09:36 Dose: 1 tab Mupirocin (Bactroban Ointment (For Decolonization) -) 1 applic NS BID [facility] Stop: 09/22/17 21:59 Last Admin: 09/18/17 09:29 Dose: 1 applic Nicotine (Nicoderm Patch -) 21 mg TD DAILY [facility] Last Admin: 09/18/17 09:28 Dose: 21 mg Pantoprazole Sodium (Protonix -) 20 mg PO DAILY [facility] Last Admin: 09/18/17 09:28 Dose: 20 mg Thiamine HCl (Vitamin B1 -) 100 mg PO DAILY [facility] Last Admin: 09/18/17 09:36 Dose: 100 mg Topiramate (Topamax -) 50 mg PO BID [facility] Last Admin: 09/18/17 09:31 Dose: 50 mg Trazodone HCl (Desyrel -) 100 mg PO HS [facility] Last Admin: 09/17/17 21:09 Dose: 100 mg Trimethoprim/Sulfamethoxazole (Bactrim Ds -) 1 each PO BID [facility] Last Admin: 09/18/17 09:32 Dose: 1 each ASSESSMENT AND PLAN: Subdural Hematoma ?Fall Alcohol Dependence r/o Alcohol Withdrawal Cellulitis Anxiety - neuro checks - on empiric antiepileptics - librium protocol - vitamin replacement - continue antibiotics for cellulitis - mechanical DVT prophylaxis - can monitor on floor
[2017-09-18] MEDS ORDERED: LIDOCAINE PATCH REMOVAL MC SCH (14:12)
[2017-09-18] MEDS ORDERED: chlordiazePOXIDE HCL 25 MG CAPSULE PO SCH (17:00)
--- NOTE | 2017-09-18 17:02 | PN ---
Teaching Attending Note Name of Resident: Benjamin Camargo ATTENDING PHYSICIAN STATEMENT I saw and evaluated the patient. I reviewed the resident's note and discussed the case with the resident. I agree with the resident's findings and plan as documented. SUBJECTIVE:c/o b/L temporal CEJA assoc iwth blurred vision. denies Cp, SOB, fever , chills, N/V/C/D, aggitation or anxiety. states she has been on long standing ativan. OBJECTIVE: Last Vital Signs Temp Pulse Resp BP Pulse Ox 98 F 64 16 124/54 99 09/18/17 14:18 09/18/17 14:18 09/18/17 14:18 09/18/17 14:18 09/17/17 20:09 general mild anxious HEENT no nystagmus, EOMI, PERRL CV S1 S2 RRR no murmur/rub/gallop Lungs CTA B/l No wheezing/rales/rhonchi Abdomen soft NT/nD Extremities strength equal in all 4 extremities sensation grossly intact RUE with scar no surrounding eyrthema or fluctuance. ASSESSMENT AND PLAN: 57 yo F recently admitted to [facility] with reproted ICH/SDH, d/audrey on keppra/ antibiotics, comes back with persistent headache/dizziness and atypical chest pain 1. Temporal ICH with vasogenic edema with mass effect and acute SDH- has been stable. on repeat imaging at [facility] and here. continues to have CEJA, she reports with worsneing blurred vision. did poorly on Javier Chart however reports watching TV which is 10-12ft away without difficulty. possible she is feigning for medication. asking for percocet for CEJA which she claims she received yesterday for CEJA with relief however got fiorcet. spoke with neuro who agrees this is likely not from ICH. topamax increased. 2. Hallucinations- possible ICU psychosis vs medication induced (keppra) vs ETOH withdrawals. no repeat episodes. now off keppra and steroids. was started on librium protocol however CIWA is low. pt reports drinking 2-3 smirnoff ice 3x /week which present at bedside agrees to. will d/c librium at this time and monitor. psych consulted 3. Anxiety- was on chronic anxiolytics. last received alprazolam 1mg TID on . will cont for now at reduced dose as needed. should follow up with psychiatrist as outpatient for non habit forming anxiolytics. 4. Atypical chest pain, suspect musculoskeletal- resolved 5. Recent RUE cellulitis- appears resolved. on keflex and bactrim day 07/19 6. Continuous nicotine dependence- nicotine patch. counseled on risks assoc with continued tobacco exposure 7. DVT ppx- SCD. would avoid heparin in setting of recent ICH/SDH 8. stable for transfer to floors. present at bedside. all questions answered. verbalized understanding. explained to pt of likelihood of needing MARAH as only walked 35ft. stated she wanted to go home. explained risks of going home and falling again. stated she will d/w her The care of this patient involved high complexity decision making to prevent further life threatening deterioration of the patient's condition and/or to evaluate & treat vital organ system(s) failure or risk of failure. 40 minutes Reference #: [id number]
--- NOTE | 2017-09-18 18:50 | PN ---
Physical Exam: SUBJECTIVE: Patient seen and examined this am in icu. In bed with at bedside. C/o pain in head- temporal region. Also endorses she is anxious. Denies chest pain or sob at this time. OBJECTIVE: Vital Signs Period Temp Pulse Resp BP Sys/Cho Pulse Ox Last 24 Hr 98 F-98.4 F 54-79 16-18 96-134/54-84 99 GENERAL: Awake, Alert and oriented. HEAD: NC/AT. Possible bump left parietal region 2/2 fall. EYES: EOMI. ENT: MMM NECK: supple. LUNGS: Dec BS at bases. HEART: RRR, No MRG, S1,S2+ ABDOMEN: ND, NT, No HSM EXTREMITIES: No CCE NEUROLOGICAL: Anxious. PSYCH: Anxious, Brief Psychosis Laboratory Results - last 24 hr 09/18/17 09/18/17 05:30 05:30 WBC 6.7 RBC 3.82 Hgb 12.8 Hct 37.7 MCV 98.9 H MCH 33.6 MCHC 34.0 RDW 13.3 Plt Count 169 MPV 8.0 Absolute Neuts (auto) 4.2 Neutrophils % 62.9 Lymphocytes % 27.7 D Monocytes % 6.7 Eosinophils % 2.0 Basophils % 0.7 Nucleated RBC % 0 Sodium 148 H Potassium 3.9 Chloride 114 H Carbon Dioxide 26 Anion Gap 8 BUN 15 Creatinine 1.0 Creat Clearance w eGFR 57.56 Random Glucose 79 Calcium 8.7 Phosphorus 3.9 Magnesium 2.3 Total Bilirubin 0.5 AST 12 L ALT 16 Alkaline Phosphatase 67 Total Protein 5.7 L Albumin 3.4 Active Medications Generic Name Dose Route Start Last Admin Trade Name Wingq PRN Reason Stop Dose Admin Acetaminophen/Butalbital/Caffeine 1 tablet 09/18/17 14:12 09/18/17 17:56 Fioricet - PO 09/19/17 14:50 1 tablet Q6H PRN Administration FEVER Alprazolam 1 mg 09/18/17 12:18 09/18/17 12:26 Xanax - PO 1 mg Q8H PRN Administration ANXIETY Cephalexin HCl 500 mg 09/18/17 18:00 09/18/17 17:58 Keflex - PO 500 mg Q6HPO JULY Administration Chlordiazepoxide HCl 25 mg 09/18/17 17:00 09/18/17 17:57 Librium - PO 09/19/17 11:01 25 mg [id number] JULY Administration Lidocaine 1 patch 09/19/17 10:00 Lidoderm Patch - TP DAILY REPLACED BY [facility] Miscellaneous 1 each 09/18/17 22:00 Lidoderm Patch Removal MC DAILY@2200 REPLACED BY [facility] Multivitamins/Minerals/Vitamin C 1 tab 09/18/17 10:00 09/18/17 09:36 Tab-A-Vit - PO 1 tab DAILY JULY Administration Nicotine 21 mg 09/19/17 10:00 Nicoderm Patch - TD DAILY JULY Pantoprazole Sodium 20 mg 09/18/17 10:00 09/18/17 09:28 Protonix - PO 20 mg DAILY JULY Administration Thiamine HCl 100 mg 09/18/17 10:00 09/18/17 09:36 Vitamin B1 - PO 100 mg DAILY JULY Administration Topiramate 50 mg 09/18/17 22:00 Topamax - PO BID JULY Trazodone HCl 100 mg 09/18/17 22:00 Desyrel - PO HS JULY Trimethoprim/Sulfamethoxazole 1 each 09/18/17 22:00 Bactrim Ds - PO BID REPLACED BY [facility] ASSESSMENT/PLAN: Pt is a 57 y/o lady who was admitted to [facility] ([facility]) on 09/12 and found to have a right sided subdural hematoma located in the temporal region. She was discharged from [facility] ([facility]) on 09/13 on keppra and keflex/ bactrim for right arm cellulitis. Pt presented today to [facility] today with persistent headache, seeing flashing yellow lights, and experiencing a sensation of the room spinning. Pt also states that she has been having radiating chest pain from her left shoulder to her back. Patient endorses that a week ago, she woke up with a severe generalized headache, dizziness, right ankle pain (denies recalling any h/o fall or trauma). Per patient had CT brain x 3 and right ankle imaging and was sent home the next day. She was advised to stop her naprosyn. Neuro: Subdural Hematoma CT head---> Subdural Hematoma right temporal region. MRI/MRA/MRV neg for venous sinus thrombosis. Topamax 50 mg PO BID per Neurology -Librium detox protocol. Drug screen positive for marijuana. -EEG. -Pain control with IV Tylenol/Lidocaine -EEG performed today at bedside 09/18/17 Hallucinations, Possible Alcohol withdrawal: Librium 10 mg po Q6H -Vitamin replacement-Vitamin B1 Anxiety, Depression: Alprazolam 1 mg TID Trazodone HCl -Psychiatry on board Dr Hensley Cellulites: 500 mg PO Q6H FEN No Fluids Monitor electrolytes Regular Diet DVT ppx: SCD's Dispo: To transfered to med-surg Visit type - Emergency Visit Emergency Visit: Yes ED Registration Date: 09/15/17 Care time: The patient presented to the Emergency Department on the above date and was hospitalized for further evaluation of their emergent condition. - New Patient This patient is new to me today: No - Critical Care Critical Care patient: Yes Total Critical Care Time (in minutes): 36 Critical Care Statement: The care of this patient involved high complexity decision making to prevent further life threatening deterioration of the patient 's condition and/or to evaluate & treat vital organ system(s) failure or risk of failure.
[2017-09-18] MEDS: CHLORHEXIDINE GLUCONATE 4% CLEANSER FOR DECOLONIZATION TP SCH (19:16)
--- NOTE | 2017-09-18 21:24 | PN ---
Physical Exam: SUBJECTIVE: Patient seen and examined at bedside in the ICU. Still with headache, dizziness , "room is spinning". No hallucinations today. Denies any fevers, chills, SOB, CP, tremors, palpitations, diaphoresis, Abd pain, urinary sxs, OBJECTIVE: Vital Signs Period Temp Pulse Resp BP Sys/Cho Pulse Ox Last 24 Hr 97.4 F-98.4 F 54-69 16-18 96-142/54-84 GENERAL: AAO3 , seems anxious HEAD: NCAT EYES: MARIO, EOMI , sclera anicteric, conjunctiva clear. ENT: nares patent, oropharynx clear without exudates. MMM NECK: Normal range of motion, supple without JVD, LUNGS: CTA B/L . No wheezes, and no crackles. No accessory muscle use. HEART: RRR, normal S1 and S2 without murmur, rub or gallop. ABDOMEN: Soft, NTND +BS, no guarding, no rebound, MUSCULOSKELETAL: Normal range of motion at all joints. No bony deformities , nonfocal back tenderness. UPPER EXTREMITIES: 2+ pulses, warm, well-perfused. No cyanosis. No clubbing. No peripheral edema. LOWER EXTREMITIES: 2+ pulses, warm, well-perfused. No calf tenderness. No peripheral edema. NEUROLOGICAL: Cranial nerves II-XII intact. Normal speech. gait not observed. FTN nl. sensation and strength grossly intact 5/5 PSYCHIATRIC: Cooperative. Good eye contact, anxious. SKIN: Warm, dry, normal turgor, no rashes or lesions noted, normal capillary refill. Laboratory Results - last 24 hr 09/18/17 09/18/17 05:30 05:30 WBC 6.7 RBC 3.82 Hgb 12.8 Hct 37.7 MCV 98.9 H MCH 33.6 MCHC 34.0 RDW 13.3 Plt Count 169 MPV 8.0 Absolute Neuts (auto) 4.2 Neutrophils % 62.9 Lymphocytes % 27.7 D Monocytes % 6.7 Eosinophils % 2.0 Basophils % 0.7 Nucleated RBC % 0 Sodium 148 H Potassium 3.9 Chloride 114 H Carbon Dioxide 26 Anion Gap 8 BUN 15 Creatinine 1.0 Creat Clearance w eGFR 57.56 Random Glucose 79 Calcium 8.7 Phosphorus 3.9 Magnesium 2.3 Total Bilirubin 0.5 AST 12 L ALT 16 Alkaline Phosphatase 67 Total Protein 5.7 L Albumin 3.4 Active Medications Generic Name Dose Route Start Last Admin Trade Name Freq PRN Reason Stop Dose Admin Acetaminophen/Butalbital/Caffeine 1 tablet 09/18/17 14:12 09/18/17 17:56 Fioricet - PO 09/19/17 14:50 1 tablet Q6H PRN Administration FEVER Alprazolam 1 mg 09/18/17 12:18 09/18/17 20:20 Xanax - PO 1 mg Q8H PRN Administration ANXIETY Cephalexin HCl 500 mg 09/18/17 18:00 09/18/17 17:58 Keflex - PO 500 mg Q6HPO JULY Administration Chlordiazepoxide HCl 25 mg 09/18/17 17:00 09/18/17 17:57 Librium - PO 09/19/17 11:01 25 mg [id number] JULY Administration Lidocaine 1 patch 09/19/17 10:00 Lidoderm Patch - TP DAILY [facility] Miscellaneous 1 each 09/18/17 22:00 Lidoderm Patch Removal MC DAILY@2200 [facility] Multivitamins/Minerals/Vitamin C 1 tab 09/18/17 10:00 09/18/17 09:36 Tab-A-Vit - PO 1 tab DAILY JULY Administration Nicotine 21 mg 09/19/17 10:00 Nicoderm Patch - TD DAILY JULY Pantoprazole Sodium 20 mg 09/18/17 10:00 09/18/17 09:28 Protonix - PO 20 mg DAILY JULY Administration Thiamine HCl 100 mg 09/18/17 10:00 09/18/17 09:36 Vitamin B1 - PO 100 mg DAILY JULY Administration Topiramate 50 mg 09/18/17 22:00 Topamax - PO BID [facility] Trazodone HCl 100 mg 09/18/17 22:00 Desyrel - PO HS [facility] Trimethoprim/Sulfamethoxazole 1 each 09/18/17 22:00 Bactrim Ds - PO BID [facility] ASSESSMENT/PLAN: 57yo F with PMH of COPD, gastric sleeve, and depression, recent mechanical fall and intracranial bleed (last sunday at [facility] ) presenting with headache and atypical chest pain admitted to ICU for SDH and Intra parenchymal bleed monitoring #Temporal ICH w/ vasogenic edema - CT shows little mass effect and acute SDH. Repeat CT - concern for venous sinus thrombosis and venous infarct. per [facility] transfer center/neurosurgery Dr. Mera, prior CT brain read at [facility] was reportedly similar to our CT images and was suggestive of contusion. MRI/MRA/MRV neg for concerns of venous sinus thrombosis. did poorly on Javier Chart however reports watching TV which is 10-12ft away without difficulty. possible she is feigning for medication. * Neurosurgery consulted with Dr. Drake, recommends medical management only * Neuro exam non concerning. can be monitored on the floor * s/p decadron x 1. Keppra changed to topamax. * topamax increased. * Seizure precautions, follow up EEG. * Pain control with IV tylenol/lidocaine * avoid narcotics, can worsen dizziness and risk of falls. * avoid ibuprofen, Naproxen or any other NSAIDs * Drug screen - positive for marihuana * PT eval inpatient if no new concerns overnight. #hallucinations - possibly 2/2 Etoh withdrawl. has heavy drinking hx, cannot give clear hx in terms when was last drink. seizures or psychosocial also on the differential as well as medication induced (keppra) -d/c librium protocol, CIWA is low -neuro checks -vitamin replacement -Monitor for signs of withdrawal -Psychiatry consult. #Depression/anxiety - hallucinations and anxious. was on chronic anxiolytics. -last received alprazolam 1mg TID on 08/28, will cont for now at reduced dose prn -should f/u with psych as outpatient for non habit forming anxiolytics. -Psychiatry consult. #Atypical chest pain - suspect musculoskeletal. * presentation not consistent with ACS. EKG unremarkable. Not a candidate for full dose AC and not a candidate for elective cardiac w/u untill bleed concerns have resolved. * cardiac enzymes - neg x2 * Telemetry #back pain * generalized with no point tenderness or spasm * Pain control with IV tylenol/lidocaine * No narcotics in lieu of subdural hematoma * ortho consult #RUE cellulitis - appears resolved * cont keflex/bactrim day 6/7 per outpatient for now. * bactrim BID * d/c in 1-2 days if no new concerns. # COPD * stable * not on any meds * counseled about smoking cessation # Depression /anxiety * cont home meds Xanax 1 mg TID , * hold for now Trazadon 100 mg HS # FEN * F:no IVF * E: WNL * N :Regular diet # Proph * DVTS: early ambulations , scds , No AP/AC due to hematoma * # dispo * stable for transfer to floors * PT eval, possibly needing MARAH as only walked 35ft * SW consult Total critical care time 45min Visit type - Emergency Visit Emergency Visit: Yes ED Registration Date: 09/15/17 Care time: The patient presented to the Emergency Department on the above date and was hospitalized for further evaluation of their emergent condition. - New Patient This patient is new to me today: Yes Date on this admission: 09/18/17 - Critical Care Critical Care patient: No
[2017-09-18] MEDS: traZODone HCL 50 MG TABLET (FP) PO SCH (22:47)
[2017-09-18] MEDS: LIDOCAINE PATCH REMOVAL MC SCH (22:47)
[2017-09-19] MEDS: CEPHALEXIN MONOHYDRATE 500 MG CAPSULE (UD) PO SCH ×3 (01:00→12:56)
[2017-09-19] MEDS: chlordiazePOXIDE HCL 25 MG CAPSULE PO SCH (04:48)
[2017-09-19] MEDS: ACETAMINOPHEN/CAFFEINE/BUTALBITAL 1 TAB PO PRN (04:49)
[2017-09-19] MEDS: ALPRAZolam 2 MG TABLET PO PRN ×2 (06:16→18:44)
[2017-09-19 07:10] LABS: BASO % 0.7 % (0-2.0); EOS % 1.6 % (0-4.5); HEMATOCRIT 41.3 % (32.4-45.2); HEMOGLOBIN 13.9 GM/dL (10.7-15.3); LYMPH % 21.8 % (8-40); MCH 33.8 pg (25.7-33.7); MCHC 33.7 g/dl (32.0-36.0); MEAN CELL VOLUME 100.3 fl (80-96); MONO % 7.6 % (3.8-10.2); NEUT % 68.3 % (42.8-82.8); PLATELET COUNT 192 K/MM3 (134-434); RBC 4.12 M/mm3 (3.60-5.2); RDW 13.5 % (11.6-15.6); WHITE BLOOD COUNT 6.7 K/mm3 (4.0-10.0)
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
[2017-09-19] MEDS ORDERED: ACETAMINOPHEN/CAFFEINE/BUTALBITAL 1 TAB PO PRN (07:40)
[2017-09-19 08:29] LABS: ALBUMIN 3.9 g/dl (3.4-5.0); ANION GAP 8 (8-16); BLOOD UREA NITROGEN 19 mg/dL (7-18); CALCIUM 9.1 mg/dL (8.5-10.1); CHLORIDE 109 mmol/L (98-107); CO2 25 mmol/L (21-32); GLUCOSE,RANDOM 78 mg/dL (74-106); POTASSIUM 3.7 mmol/L (3.5-5.1); SODIUM 142 mmol/L (136-145)
[2017-09-19 08:33] LABS: ALK PHOS 83 U/L (45-117); BILIRUBIN,TOTAL 0.4 mg/dL (0.2-1.0); SGOT/AST 12 U/L (15-37); SGPT/ALT 20 U/L (12-78); TOT PROT 6.7 g/dl (6.4-8.2)
[2017-09-19] MEDS: TOPIRAMATE 25 MG TABLET (FP) PO SCH (09:45)
[2017-09-19] MEDS: SULFAMETHOXAZOLE/TRIMETHOPRIM 800MG/160MG D.S. TABLET PO SCH (09:45)
[2017-09-19] MEDS: MULTIVITAMINS (DAILY MVI) TABLET (FP) PO SCH (09:45)
[2017-09-19] MEDS: PANTOPRAZOLE 20 MG TABLET (FP) PO SCH (09:45)
[2017-09-19] MEDS: THIAMINE HCL 100 MG TABLET (FP) PO SCH (09:45)
[2017-09-19] MEDS: LIDOCAINE 5% TOPICAL PATCH TP SCH (09:46)
[2017-09-19] MEDS: NICOTINE 21 MG/24 HOURS TOPICAL PATCH TD SCH (09:46)
[2017-09-19] MEDS ORDERED: HYDROmorphone HCL CARPU-JECT 1 MG/1 ML DISP.SYRIN IM ONE (10:24)
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
[2017-09-19] MEDS ORDERED: HYDROmorphone HCL CARPU-JECT 2 MG/1 ML DISP.SYRIN IM ONE (11:00)
[2017-09-19] MEDS ORDERED: PT OWN MED DRAWER 7, Y5N ONE (12:06)
[2017-09-19] MEDS: ESCITALOPRAM OXALATE 10 MG TABLET (FP) PO SCH (12:56)
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
[2017-09-19] MEDS ORDERED: chlordiazePOXIDE 5 MG CAPSULE PO SCH (17:00)
[2017-09-19] MEDS: LIDOCAINE PATCH REMOVAL MC SCH (21:23)
[2017-09-19] MEDS: traZODone HCL 50 MG TABLET (FP) PO SCH (21:23)
[2017-09-19] MEDS: TOPIRAMATE 100 MG TABLET PO SCH (21:23)
[2017-09-20] MEDS: ALPRAZolam 2 MG TABLET PO PRN (07:02)
[2017-09-20 07:41] LABS: CHLORIDE 109 mmol/L (98-107); POTASSIUM 4.1 mmol/L (3.5-5.1); SODIUM 143 mmol/L (136-145)
[2017-09-20 07:48] LABS: ALBUMIN 4.2 g/dl (3.4-5.0); ALK PHOS 94 U/L (45-117); ANION GAP 9 (8-16); BILIRUBIN,TOTAL 0.6 mg/dL (0.2-1.0); BLOOD UREA NITROGEN 16 mg/dL (7-18); CALCIUM 9.5 mg/dL (8.5-10.1); CO2 25 mmol/L (21-32); GLUCOSE,RANDOM 95 mg/dL (74-106); SGOT/AST 15 U/L (15-37); SGPT/ALT 23 U/L (12-78); TOT PROT 7.2 g/dl (6.4-8.2)
[2017-09-20] MEDS: ACETAMINOPHEN/CAFFEINE/BUTALBITAL 1 TAB PO PRN ×2 (08:48→14:39)
[2017-09-20] MEDS ORDERED: PT OWN MED DRAWER 7, Y5N ONE ×2 (10:01→19:29)
[2017-09-20] MEDS: LIDOCAINE 5% TOPICAL PATCH TP SCH (10:14)
[2017-09-20] MEDS: NICOTINE 21 MG/24 HOURS TOPICAL PATCH TD SCH (10:14)
[2017-09-20] MEDS: ESCITALOPRAM OXALATE 10 MG TABLET (FP) PO SCH (10:14)
[2017-09-20] MEDS: THIAMINE HCL 100 MG TABLET (FP) PO SCH (10:14)
[2017-09-20] MEDS: MULTIVITAMINS (DAILY MVI) TABLET (FP) PO SCH (10:14)
[2017-09-20] MEDS: PANTOPRAZOLE 20 MG TABLET (FP) PO SCH (10:16)
[2017-09-20] MEDS: TOPIRAMATE 100 MG TABLET PO SCH ×2 (10:16→22:16)
--- NOTE | 2017-09-20 12:54 | PN ---
Teaching Attending Note Name of Resident: Benjamin Camargo ATTENDING PHYSICIAN STATEMENT I saw and evaluated the patient. I reviewed the resident's note and discussed the case with the resident. I agree with the resident's findings and plan as documented. SUBJECTIVE:continues to have CEJA but not worse than previously. diffuse body aches. anxious about going to rehab. denies Cp, SOB, fever, N/V/C/D OBJECTIVE: Last Vital Signs Temp Pulse Resp BP Pulse Ox 97.6 F 58 L 19 119/56 99 09/20/17 10:00 09/20/17 10:00 09/20/17 10:00 09/20/17 10:00 09/19/17 21:00 general mild anxious ASSESSMENT AND PLAN: 57 yo F recently admitted to [facility] with reported ICH/SDH, d/audrey on keppra/ antibiotics, comes back with persistent headache/dizziness and atypical chest pain 1. Temporal ICH with vasogenic edema with mass effect and acute SDH- has been stable. on repeat imaging at [facility] and here. continues to have CEJA, re-assured her that she will have CEJA for some time and will take time for it to improve. cont with fiocet prn. topamax for prophylaxis 2. Hallucinations- possible ICU psychosis vs medication induced (keppra) vs ETOH withdrawals. no repeat episodes. now off keppra and steroids. psych consulted 3. Anxiety- was on chronic anxiolytics. will need to be tapered off BXD. reduced to 1mg BID and tolerating well. awaiting to hear from detox about further titration instruction and if there are beds available at [facility] to complete detox. started on low dose lexapro yesterday. psych and detox on board 4. neck pain- CT done showing multilevel DJD. with C5-C6 and C6-C7 narrowing. will ask neurosurg to comment. eliseo no intervention at this time as there is no pain or neurological deficits. 5. Atypical chest pain, suspect musculoskeletal- resolved 6. Recent RUE cellulitis- appears resolved. complete abx course 7. Continuous nicotine dependence- nicotine patch. counseled on risks assoc with continued tobacco exposure 8. DVT ppx- SCD. would avoid heparin in setting of recent ICH/SDH 9. PT eval. awaiting on bed availability at [facility] for her to complete bzd detox and inpatient rehab. spoke with present at bedside. both verbalized agreement with plan
[2017-09-20] MEDS ORDERED: ALPRAZolam 2 MG TABLET PO SCH ×2 (13:45→14:18)
[2017-09-20] MEDS ORDERED: chlordiazePOXIDE HCL 10 MG CAPSULE PO SCH (17:00)
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
[2017-09-20] MEDS: ALPRAZolam 2 MG TABLET PO SCH (19:35)
[2017-09-20] MEDS: traZODone HCL 50 MG TABLET (FP) PO SCH (22:16)
[2017-09-20] MEDS: chlordiazePOXIDE 5 MG CAPSULE PO SCH (22:16)
[2017-09-20] MEDS: LIDOCAINE PATCH REMOVAL MC SCH (22:16)
[2017-09-20] MEDS: GABAPENTIN 100 MG CAPSULE (FP) PO SCH (22:16)
[2017-09-21] MEDS: GABAPENTIN 100 MG CAPSULE (FP) PO SCH ×3 (06:17→21:22)
[2017-09-21] MEDS: ALPRAZolam 2 MG TABLET PO SCH ×2 (06:17→19:05)
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
--- NOTE | 2017-09-21 08:18 | PN ---
Teaching Attending Note Name of Resident: Benjamin Camargo ATTENDING PHYSICIAN STATEMENT I saw and evaluated the patient. I reviewed the resident's note and discussed the case with the resident. I agree with the resident's findings and plan as documented. SUBJECTIVE: Patient is comfortable, wants to go to rehab. OBJECTIVE: Vital Signs Temperature 98.1 F 09/21/17 06:00 Pulse Rate 61 09/21/17 06:00 Respiratory Rate 20 09/21/17 06:00 Blood Pressure 124/55 09/21/17 06:00 O2 Sat by Pulse Oximetry (%) 99 09/20/17 21:00 CBCD WBC 6.7 K/mm3 (4.0-10.0) 09/19/17 06:00 RBC 4.12 M/mm3 (3.60-5.2) 09/19/17 06:00 Hgb 13.9 GM/dL (10.7-15.3) 09/19/17 06:00 Hct 41.3 % (32.4-45.2) 09/19/17 06:00 MCV 100.3 fl (80-96) H 09/19/17 06:00 MCHC 33.7 g/dl (32.0-36.0) 09/19/17 06:00 RDW 13.5 % (11.6-15.6) 09/19/17 06:00 Plt Count 192 K/MM3 (134-434) 09/19/17 06:00 MPV 8.0 fl (7.5-11.1) 09/19/17 06:00 CMP Sodium 143 mmol/L (136-145) 09/20/17 06:30 Potassium 4.1 mmol/L (3.5-5.1) 09/20/17 06:30 Chloride 109 mmol/L (98-107) H 09/20/17 06:30 Carbon Dioxide 25 mmol/L (21-32) 09/20/17 06:30 Anion Gap 9 (8-16) 09/20/17 06:30 BUN 16 mg/dL (7-18) 09/20/17 06:30 Creatinine 1.0 mg/dL (0.55-1.02) 09/20/17 06:30 Creat Clearance w eGFR 57.56 (>60) 09/20/17 06:30 Random Glucose 95 mg/dL (74-106) 09/20/17 06:30 Calcium 9.5 mg/dL (8.5-10.1) 09/20/17 06:30 Total Bilirubin 0.6 mg/dL (0.2-1.0) 09/20/17 06:30 AST 15 U/L (15-37) 09/20/17 06:30 ALT 23 U/L (12-78) 09/20/17 06:30 Alkaline Phosphatase 94 U/L (45-117) D 09/20/17 06:30 Total Protein 7.2 g/dl (6.4-8.2) 09/20/17 06:30 Albumin 4.2 g/dl (3.4-5.0) 09/20/17 06:30 CARDIAC ENZYMES Creatine Kinase 46 IU/L (26-192) 09/15/17 15:55 Troponin I < 0.02 ng/ml (0.00-0.05) 09/15/17 22:45 Current Medications Generic Name Dose Route Start Last Admin Trade Name Katelin PRN Reason Stop Dose Admin Acetaminophen/Butalbital/Caffeine 1 tablet 09/20/17 07:41 09/20/17 14:39 Fioricet - PO 1 tablet Q6H PRN Administration HEADACHE Alprazolam 1 mg 09/20/17 19:45 09/21/17 06:17 Xanax - PO 1 mg BID@0700,1900 JULY Administration Chlordiazepoxide HCl 15 mg 09/20/17 22:00 09/20/17 22:16 Librium - PO 15 mg BID JULY Administration Escitalopram Oxalate 5 mg 09/19/17 11:30 09/20/17 10:14 Lexapro - PO 5 mg DAILY JULY Administration Gabapentin 100 mg 09/20/17 22:00 09/21/17 06:17 Neurontin - PO 100 mg TID JULY Administration Lidocaine 1 patch 09/19/17 10:00 09/20/17 10:14 Lidoderm Patch - TP 1 patch DAILY JULY Administration Miscellaneous 1 each 09/18/17 22:00 09/20/17 22:16 Lidoderm Patch Removal MC 1 each DAILY@2200 JULY Administration Multivitamins/Minerals/Vitamin C 1 tab 09/18/17 10:00 09/20/17 10:14 Tab-A-Vit - PO 1 tab DAILY JULY Administration Nicotine 21 mg 09/19/17 10:00 09/20/17 10:14 Nicoderm Patch - TD 21 mg DAILY JULY Administration Pantoprazole Sodium 20 mg 09/18/17 10:00 09/20/17 10:16 Protonix - PO 20 mg DAILY JULY Administration Thiamine HCl 100 mg 09/18/17 10:00 09/20/17 10:14 Vitamin B1 - PO 100 mg DAILY JULY Administration Topiramate 100 mg 09/19/17 22:00 09/20/17 22:16 Topamax - PO 100 mg BID JULY Administration Trazodone HCl 100 mg 09/18/17 22:00 09/20/17 22:16 Desyrel - PO 100 mg HS JULY Administration Home Medications Medication Instructions Recorded Alprazolam [Xanax] 1 mg PO TID 09/15/17 Cephalexin [Keflex] 500 mg PO Q6H 09/15/17 Ibuprofen 800 mg PO TID PRN 09/15/17 Levetiracetam 500 mg PO BID 09/15/17 Sulfamethoxazole/Trimethoprim 1 tab PO BID 09/15/17 [Bactrim Ds -] Trazodone HCl 100 mg PO HS 09/15/17 PE: per resident's note general mild anxious ASSESSMENT AND PLAN: Patient is a 57 yo Female recently admitted to [facility] with reported ICH/SDH , d/audrey on keppra/antibiotics, comes back with persistent headache/dizziness and atypical chest pain. # Temporal ICH with vasogenic edema with mass effect and acute SDH has been stable. # Hallucinations improved . # Anxiety: on chronic anxiolytics. reduced to 1mg BID and tolerating well. # neck pain- CT done showing multilevel DJD. with C5-C6 and C6-C7 narrowing. # Recent RUE cellulitis- appears resolved. complete abx course # Continuous nicotine dependence- nicotine patch. counseled on risks assoc with continued tobacco exposure DVT ppx- SCD. would avoid heparin in setting of recent ICH/SDH PT eval. awaiting on bed availability at [facility] for her to complete bzd detox and inpatient rehab. spoke with present at bedside. both verbalized agreement with plan
[2017-09-21] MEDS: LIDOCAINE 5% TOPICAL PATCH TP SCH (10:00)
[2017-09-21] MEDS: PANTOPRAZOLE 20 MG TABLET (FP) PO SCH (10:00)
[2017-09-21] MEDS: ESCITALOPRAM OXALATE 10 MG TABLET (FP) PO SCH (10:00)
[2017-09-21] MEDS: MULTIVITAMINS (DAILY MVI) TABLET (FP) PO SCH (10:00)
[2017-09-21] MEDS: chlordiazePOXIDE 5 MG CAPSULE PO SCH ×2 (10:00→21:22)
[2017-09-21] MEDS: TOPIRAMATE 100 MG TABLET PO SCH ×2 (10:00→22:36)
[2017-09-21] MEDS: ACETAMINOPHEN/CAFFEINE/BUTALBITAL 1 TAB PO PRN ×2 (10:03→17:33)
[2017-09-21] MEDS: NICOTINE 21 MG/24 HOURS TOPICAL PATCH TD SCH (10:04)
[2017-09-21] MEDS: THIAMINE HCL 100 MG TABLET (FP) PO SCH (10:06)
[2017-09-21] MEDS: traZODone HCL 50 MG TABLET (FP) PO SCH (21:22)
[2017-09-21] MEDS: LIDOCAINE PATCH REMOVAL MC SCH (21:22)
[2017-09-21] MEDS ORDERED: PT OWN MED DRAWER 7, Y5N ONE (21:35)
[2017-09-22] MEDS: ALPRAZolam 2 MG TABLET PO SCH ×2 (06:48→18:39)
[2017-09-22] MEDS: GABAPENTIN 100 MG CAPSULE (FP) PO SCH ×3 (06:49→21:10)
--- NOTE | 2017-09-22 09:33 | PN ---
Progress Note (short form) - Note Progress Note: Patient is comfortable with no acute distress. Vital Signs Temperature 98.1 F 09/22/17 06:00 Pulse Rate 58 L 09/22/17 06:00 Respiratory Rate 20 09/22/17 06:00 Blood Pressure 130/58 09/22/17 06:00 O2 Sat by Pulse Oximetry (%) 99 09/21/17 21:00 GENERAL: AAO3 , seems anxious. emotional. HEAD: NCAT EYES: MARIO, EOMI , sclera anicteric, conjunctiva clear. ENT: oropharynx clear without exudates. MMM NECK: Normal range of motion, supple without JVD. LUNGS: mild bibasilar crackles . No wheezes. No accessory muscle use. HEART: RRR, normal S1 and S2 without murmur, rub or gallop. ABDOMEN: Soft, NTND +BS, no guarding, no rebound, MUSCULOSKELETAL: Normal range of motion at all joints. No bony deformities , nonfocal back tenderness. EXTREMITIES: 2+ pulses, warm, well-perfused. No cyanosis. No clubbing. No peripheral edema. NEUROLOGICAL: Cranial nerves II-XII intact. Normal speech. gait not observed. sensation and strength grossly intact 5/5 PSYCHIATRIC: Cooperative. Good eye contact, anxious. SKIN: Warm, dry, normal turgor, no rashes or lesions noted, normal capillary refill. CBCD WBC 6.7 K/mm3 (4.0-10.0) 09/19/17 06:00 RBC 4.12 M/mm3 (3.60-5.2) 09/19/17 06:00 Hgb 13.9 GM/dL (10.7-15.3) 09/19/17 06:00 Hct 41.3 % (32.4-45.2) 09/19/17 06:00 MCV 100.3 fl (80-96) H 09/19/17 06:00 MCHC 33.7 g/dl (32.0-36.0) 09/19/17 06:00 RDW 13.5 % (11.6-15.6) 09/19/17 06:00 Plt Count 192 K/MM3 (134-434) 09/19/17 06:00 MPV 8.0 fl (7.5-11.1) 08/08/18 06:00 CMP Sodium 143 mmol/L (136-145) 09/20/17 06:30 Potassium 4.1 mmol/L (3.5-5.1) 09/20/17 06:30 Chloride 109 mmol/L (98-107) H 09/20/17 06:30 Carbon Dioxide 25 mmol/L (21-32) 09/20/17 06:30 Anion Gap 9 (8-16) 09/20/17 06:30 BUN 16 mg/dL (7-18) 09/20/17 06:30 Creatinine 1.0 mg/dL (0.55-1.02) 09/20/17 06:30 Creat Clearance w eGFR 57.56 (>60) 09/20/17 06:30 Random Glucose 95 mg/dL (74-106) 09/20/17 06:30 Calcium 9.5 mg/dL (8.5-10.1) 09/20/17 06:30 Total Bilirubin 0.6 mg/dL (0.2-1.0) 09/20/17 06:30 AST 15 U/L (15-37) 09/20/17 06:30 ALT 23 U/L (12-78) 09/20/17 06:30 Alkaline Phosphatase 94 U/L (45-117) D 09/20/17 06:30 Total Protein 7.2 g/dl (6.4-8.2) 09/20/17 06:30 Albumin 4.2 g/dl (3.4-5.0) 09/20/17 06:30 CARDIAC ENZYMES Creatine Kinase 46 IU/L (26-192) 09/15/17 15:55 Troponin I < 0.02 ng/ml (0.00-0.05) 09/15/17 22:45 Current Medications Generic Name Dose Route Start Last Admin Trade Name Freq PRN Reason Stop Dose Admin Acetaminophen/Butalbital/Caffeine 1 tablet 09/20/17 07:41 09/21/17 17:33 Fioricet - PO 1 tablet Q6H PRN Administration HEADACHE Alprazolam 1 mg 09/20/17 19:45 09/22/17 06:48 Xanax - PO 1 mg BID@0700,1900 JULY Administration Chlordiazepoxide HCl 15 mg 09/20/17 22:00 09/21/17 21:22 Librium - PO 15 mg BID JULY Administration Escitalopram Oxalate 5 mg 09/19/17 11:30 09/21/17 10:00 Lexapro - PO 5 mg DAILY JULY Administration Gabapentin 100 mg 09/20/17 22:00 09/22/17 06:49 Neurontin - PO 100 mg TID JULY Administration Lidocaine 1 patch 09/19/17 10:00 09/21/17 10:00 Lidoderm Patch - TP 1 patch DAILY JULY Administration Miscellaneous 1 each 09/18/17 22:00 09/21/17 21:22 Lidoderm Patch Removal MC 1 each DAILY@2200 JULY Administration Multivitamins/Minerals/Vitamin C 1 tab 09/18/17 10:00 09/21/17 10:00 Tab-A-Vit - PO 1 tab DAILY JULY Administration Nicotine 21 mg 09/19/17 10:00 09/21/17 10:04 Nicoderm Patch - TD 21 mg DAILY JULY Administration Pantoprazole Sodium 20 mg 09/18/17 10:00 09/21/17 10:00 Protonix - PO 20 mg DAILY JULY Administration Thiamine HCl 100 mg 09/18/17 10:00 09/21/17 10:06 Vitamin B1 - PO 100 mg DAILY JULY Administration Topiramate 100 mg 09/19/17 22:00 09/21/17 22:36 Topamax - PO 100 mg BID JULY Administration Trazodone HCl 100 mg 09/18/17 22:00 09/21/17 21:22 Desyrel - PO 100 mg HS JULY Administration Home Medications Medication Instructions Recorded Alprazolam [Xanax] 1 mg PO TID 09/15/17 Cephalexin [Keflex] 500 mg PO Q6H 09/15/17 Ibuprofen 800 mg PO TID PRN 09/15/17 Levetiracetam 500 mg PO BID 09/15/17 Sulfamethoxazole/Trimethoprim 1 tab PO BID 09/15/17 [Bactrim Ds -] traZODone HCL [Trazodone HCl] 100 mg PO HS 09/15/17 ASSESSMENT AND PLAN: Patient is a 57 yo Female recently admitted to [facility] with reported ICH/SDH , d/audrey on keppra/antibiotics, comes back with persistent headache/dizziness and atypical chest pain. # Temporal ICH with vasogenic edema with mass effect and acute SDH has been stable at this time. # Hallucinations improved . # Anxiety: on chronic anxiolytics continue . reduced to 1mg BID and tolerating well. # neck pain- CT done showing multilevel DJD. with C5-C6 and C6-C7 narrowing. # Recent RUE cellulitis- appears resolved. complete abx course # Continuous nicotine dependence- nicotine patch. counseled on risks assoc. with continued tobacco exposure DVT ppx- SCD. would avoid heparin in setting of recent ICH/SDH PT eval. awaiting on bed availability at [facility] for her to complete bzd detox and inpatient rehab. spoke with present at bedside. both verbalized agreement with plan Visit type - Emergency Visit Emergency Visit: Yes ED Registration Date: 09/15/17 Care time: The patient presented to the Emergency Department on the above date and was hospitalized for further evaluation of their emergent condition. - New Patient This patient is new to me today: No - Critical Care Critical Care patient: No - Discharge Referral Referred to [facility] Med P.C.: No
[2017-09-22] MEDS: LIDOCAINE 5% TOPICAL PATCH TP SCH (10:40)
[2017-09-22] MEDS: MULTIVITAMINS (DAILY MVI) TABLET (FP) PO SCH (10:40)
[2017-09-22] MEDS: ESCITALOPRAM OXALATE 10 MG TABLET (FP) PO SCH (10:40)
[2017-09-22] MEDS: THIAMINE HCL 100 MG TABLET (FP) PO SCH (10:40)
[2017-09-22] MEDS: PANTOPRAZOLE 20 MG TABLET (FP) PO SCH (10:40)
[2017-09-22] MEDS: NICOTINE 21 MG/24 HOURS TOPICAL PATCH TD SCH (10:40)
[2017-09-22] MEDS: chlordiazePOXIDE 5 MG CAPSULE PO SCH ×2 (10:41→21:11)
[2017-09-22] MEDS: TOPIRAMATE 100 MG TABLET PO SCH ×2 (10:42→21:10)
--- NOTE | 2017-09-22 13:10 | PN ---
Physical Exam: SUBJECTIVE: Patient seen and examined OBJECTIVE: Vital Signs Period Temp Pulse Resp BP Sys/Cho Pulse Ox Last 24 Hr 98.0 F-98.1 F 55-65 20-20 119-139/58-74 99 GENERAL: The patient is awake, alert, and fully oriented, in no acute distress. HEAD: Normal with no signs of trauma. EYES: PERRL, extraocular movements intact, sclera anicteric, conjunctiva clear. No ptosis. ENT: Ears normal, nares patent, oropharynx clear without exudates, moist mucous membranes. NECK: Trachea midline, full range of motion, supple. LUNGS: Breath sounds equal, clear to auscultation bilaterally, no wheezes, no crackles, no accessory muscle use. HEART: Regular rate and rhythm, S1, S2 without murmur, rub or gallop. ABDOMEN: Soft, nontender, nondistended, normoactive bowel sounds, no guarding, no rebound, no hepatosplenomegaly, no masses. EXTREMITIES: 2+ pulses, warm, well-perfused, no edema. NEUROLOGICAL: Cranial nerves II through XII grossly intact. Normal speech, gait not observed. PSYCH: Normal mood, normal affect. SKIN: Warm, dry, normal turgor, no rashes or lesions noted Active Medications Generic Name Dose Route Start Last Admin Trade Name Wingq PRN Reason Stop Dose Admin Acetaminophen/Butalbital/Caffeine 1 tablet 09/20/17 07:41 09/21/17 17:33 Fioricet - PO 1 tablet Q6H PRN Administration HEADACHE Alprazolam 1 mg 09/20/17 19:45 09/22/17 06:48 Xanax - PO 1 mg BID@0700,1900 JULY Administration Chlordiazepoxide HCl 15 mg 09/20/17 22:00 09/22/17 10:41 Librium - PO 15 mg BID JULY Administration Escitalopram Oxalate 5 mg 09/19/17 11:30 09/22/17 10:40 Lexapro - PO 5 mg DAILY JULY Administration Gabapentin 100 mg 09/20/17 22:00 09/22/17 06:49 Neurontin - PO 100 mg TID JULY Administration Lidocaine 1 patch 09/19/17 10:00 09/22/17 10:40 Lidoderm Patch - TP 1 patch DAILY JULY Administration Miscellaneous 1 each 09/18/17 22:00 09/21/17 21:22 Lidoderm Patch Removal MC 1 each DAILY@2200 JULY Administration Multivitamins/Minerals/Vitamin C 1 tab 09/18/17 10:00 09/22/17 10:40 Tab-A-Vit - PO 1 tab DAILY JULY Administration Nicotine 21 mg 09/19/17 10:00 09/22/17 10:40 Nicoderm Patch - TD 21 mg DAILY JULY Administration Pantoprazole Sodium 20 mg 09/18/17 10:00 09/22/17 10:40 Protonix - PO 20 mg DAILY JULY Administration Thiamine HCl 100 mg 09/18/17 10:00 09/22/17 10:40 Vitamin B1 - PO 100 mg DAILY JULY Administration Topiramate 100 mg 09/19/17 22:00 09/22/17 10:42 Topamax - PO 100 mg BID JULY Administration Trazodone HCl 100 mg 09/18/17 22:00 09/21/17 21:22 Desyrel - PO 100 mg HS JULY Administration ASSESSMENT/PLAN:
[2017-09-22] MEDS: ACETAMINOPHEN/CAFFEINE/BUTALBITAL 1 TAB PO PRN (20:13)
[2017-09-22] MEDS: traZODone HCL 50 MG TABLET (FP) PO SCH (21:10)
[2017-09-22] MEDS: LIDOCAINE PATCH REMOVAL MC SCH (23:01)
[2017-09-23] MEDS: GABAPENTIN 100 MG CAPSULE (FP) PO SCH ×3 (05:30→21:14)
[2017-09-23] MEDS: ACETAMINOPHEN/CAFFEINE/BUTALBITAL 1 TAB PO PRN (05:36)
[2017-09-23] MEDS: ALPRAZolam 2 MG TABLET PO SCH ×2 (06:29→18:11)
[2017-09-23] MEDS ORDERED: PT OWN MED DRAWER 7, Y5N ONE (09:23)
[2017-09-23] MEDS: MULTIVITAMINS (DAILY MVI) TABLET (FP) PO SCH (09:28)
[2017-09-23] MEDS: PANTOPRAZOLE 20 MG TABLET (FP) PO SCH (09:28)
[2017-09-23] MEDS: chlordiazePOXIDE 5 MG CAPSULE PO SCH ×2 (09:28→21:15)
[2017-09-23] MEDS: THIAMINE HCL 100 MG TABLET (FP) PO SCH (09:28)
[2017-09-23] MEDS: ESCITALOPRAM OXALATE 10 MG TABLET (FP) PO SCH (09:29)
[2017-09-23] MEDS: TOPIRAMATE 100 MG TABLET PO SCH ×2 (09:29→21:15)
[2017-09-23] MEDS: LIDOCAINE 5% TOPICAL PATCH TP SCH (09:30)
[2017-09-23] MEDS: NICOTINE 21 MG/24 HOURS TOPICAL PATCH TD SCH (09:30)
[2017-09-23] MEDS ORDERED: NICOTINE 21 MG/24 HOURS TOPICAL PATCH TD SCH (10:03)
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
[2017-09-23] MEDS: traZODone HCL 50 MG TABLET (FP) PO SCH (21:14)
[2017-09-23] MEDS: LIDOCAINE PATCH REMOVAL MC SCH (21:15)
[2017-09-24] MEDS: GABAPENTIN 100 MG CAPSULE (FP) PO SCH ×2 (06:12→14:56)
[2017-09-24] MEDS: ALPRAZolam 2 MG TABLET PO SCH (06:12)
[2017-09-24] MEDS: NICOTINE 21 MG/24 HOURS TOPICAL PATCH TD SCH ×2 (06:13→09:37)
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
--- NOTE | 2017-09-24 08:44 | PN ---
Teaching Attending Note Name of Resident: Benjaimn Camargo ATTENDING PHYSICIAN STATEMENT I saw and evaluated the patient. I reviewed the resident's note and discussed the case with the resident. I agree with the resident's findings and plan as documented. SUBJECTIVE: OBJECTIVE: Vital Signs Temperature 97.7 F 09/24/17 06:00 Pulse Rate 59 L 09/24/17 06:00 Respiratory Rate 18 09/24/17 06:00 Blood Pressure 127/82 09/24/17 06:00 O2 Sat by Pulse Oximetry (%) 97 09/23/17 09:00 CBCD WBC 6.7 K/mm3 (4.0-10.0) 09/19/17 06:00 RBC 4.12 M/mm3 (3.60-5.2) 09/19/17 06:00 Hgb 13.9 GM/dL (10.7-15.3) 09/19/17 06:00 Hct 41.3 % (32.4-45.2) 09/19/17 06:00 MCV 100.3 fl (80-96) H 09/19/17 06:00 MCHC 33.7 g/dl (32.0-36.0) 09/19/17 06:00 RDW 13.5 % (11.6-15.6) 09/19/17 06:00 Plt Count 192 K/MM3 (134-434) 09/19/17 06:00 MPV 8.0 fl (7.5-11.1) 09/19/17 06:00 CMP Sodium 143 mmol/L (136-145) 09/20/17 06:30 Potassium 4.1 mmol/L (3.5-5.1) 09/20/17 06:30 Chloride 109 mmol/L (98-107) H 09/20/17 06:30 Carbon Dioxide 25 mmol/L (21-32) 09/20/17 06:30 Anion Gap 9 (8-16) 09/20/17 06:30 BUN 16 mg/dL (7-18) 09/20/17 06:30 Creatinine 1.0 mg/dL (0.55-1.02) 09/20/17 06:30 Creat Clearance w eGFR 57.56 (>60) 09/20/17 06:30 Random Glucose 95 mg/dL (74-106) 09/20/17 06:30 Calcium 9.5 mg/dL (8.5-10.1) 09/20/17 06:30 Total Bilirubin 0.6 mg/dL (0.2-1.0) 09/20/17 06:30 AST 15 U/L (15-37) 09/20/17 06:30 ALT 23 U/L (12-78) 09/20/17 06:30 Alkaline Phosphatase 94 U/L (45-117) D 09/20/17 06:30 Total Protein 7.2 g/dl (6.4-8.2) 09/20/17 06:30 Albumin 4.2 g/dl (3.4-5.0) 09/20/17 06:30 CARDIAC ENZYMES Creatine Kinase 46 IU/L (26-192) 09/15/17 15:55 Troponin I < 0.02 ng/ml (0.00-0.05) 09/15/17 22:45 Current Medications Generic Name Dose Route Start Last Admin Trade Name Freq PRN Reason Stop Dose Admin Acetaminophen/Butalbital/Caffeine 1 tablet 09/20/17 07:41 09/23/17 05:36 Fioricet - PO 1 tablet Q6H PRN Administration HEADACHE Alprazolam 1 mg 09/20/17 19:45 09/24/17 06:12 Xanax - PO 1 mg BID@0700,1900 JULY Administration Chlordiazepoxide HCl 15 mg 09/20/17 22:00 09/23/17 21:15 Librium - PO 15 mg BID JULY Administration Escitalopram Oxalate 5 mg 09/19/17 11:30 09/23/17 09:29 Lexapro - PO 5 mg DAILY JULY Administration Gabapentin 100 mg 09/20/17 22:00 09/24/17 06:12 Neurontin - PO 100 mg TID JULY Administration Lidocaine 1 patch 09/19/17 10:00 09/23/17 09:30 Lidoderm Patch - TP 1 patch DAILY JULY Administration Miscellaneous 1 each 09/18/17 22:00 09/23/17 21:15 Lidoderm Patch Removal MC 1 each DAILY@2200 JULY Administration Multivitamins/Minerals/Vitamin C 1 tab 09/18/17 10:00 09/23/17 09:28 Tab-A-Vit - PO 1 tab DAILY JULY Administration Nicotine 21 mg 09/24/17 07:00 08/13/18 06:13 Nicoderm Patch - TD 21 mg DAILY JULY Administration Pantoprazole Sodium 20 mg 09/18/17 10:00 09/23/17 09:28 Protonix - PO 20 mg DAILY JULY Administration Thiamine HCl 100 mg 09/18/17 10:00 09/23/17 09:28 Vitamin B1 - PO 100 mg DAILY JULY Administration Topiramate 100 mg 09/19/17 22:00 09/23/17 21:15 Topamax - PO 100 mg BID JULY Administration Trazodone HCl 100 mg 09/18/17 22:00 09/23/17 21:14 Desyrel - PO 100 mg HS JULY Administration Home Medications Medication Instructions Recorded Alprazolam [Xanax] 1 mg PO TID 09/15/17 Cephalexin [Keflex] 500 mg PO Q6H 09/15/17 Ibuprofen 800 mg PO TID PRN 09/15/17 Levetiracetam 500 mg PO BID 09/15/17 Sulfamethoxazole/Trimethoprim 1 tab PO BID 09/15/17 [Bactrim Ds -] traZODone HCL [Trazodone HCl] 100 mg PO HS 09/15/17 Intake & Output 09/21/17 09/22/17 09/23/17 09/24/17 23:59 23:59 23:59 23:59 Intake Total 1060 1700 700 Balance 1060 1700 700 ASSESSMENT AND PLAN: Patient is a 57 yo Female recently admitted to [facility] with reported ICH/SDH , d/audrey on keppra/antibiotics, comes back with persistent headache/dizziness and atypical chest pain. # Temporal ICH with vasogenic edema with mass effect and acute SDH has been stable at this time. # Hallucinations improved . # Anxiety: on chronic anxiolytics continue . reduced to 1mg BID and tolerating well. # neck pain- CT done showing multilevel DJD. with C5-C6 and C6-C7 narrowing. # Recent RUE cellulitis- appears resolved. complete abx course # Continuous nicotine dependence- nicotine patch. counseled on risks assoc. with continued tobacco exposure DVT ppx- SCD. would avoid heparin in setting of recent ICH/SDH Patient refused to go to rehab. wanted to go home.patient is competent. alert awake oriented.
[2017-09-24] MEDS: MULTIVITAMINS (DAILY MVI) TABLET (FP) PO SCH (09:36)
[2017-09-24] MEDS: LIDOCAINE 5% TOPICAL PATCH TP SCH (09:36)
[2017-09-24] MEDS: PANTOPRAZOLE 20 MG TABLET (FP) PO SCH (09:37)
[2017-09-24] MEDS: THIAMINE HCL 100 MG TABLET (FP) PO SCH (09:37)
[2017-09-24] MEDS: chlordiazePOXIDE 5 MG CAPSULE PO SCH (09:37)
[2017-09-24] MEDS: ESCITALOPRAM OXALATE 10 MG TABLET (FP) PO SCH (09:37)
[2017-09-24] MEDS: TOPIRAMATE 100 MG TABLET PO SCH (09:38)
[2017-09-24 15:42] VITALS: BP 133/50; PULSE 53; TEMP 97.8
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
== END 2017-09-24 18:15 | disposition home or self-care (01) | DRG 85 ==
LOC: JER 12:28 → JERBED 19:29 → JICU 09-16 12:15 → J5S 09-18 14:28
PROVIDERS: ADMIT Hospitalist; ATTEND Internal Medicine
PROC: HZ2ZZZZ Detoxification Services for Substance Abuse Treatment (ICD-10-PCS; principal; 2017-09-15)
DX: S06.5X0A Traumatic subdural hemorrhage without loss of consciousness, initial encounter (principal); G93.6 Cerebral edema; L03.113 Cellulitis of right upper limb; R44.3 Hallucinations, unspecified; F10.239 Alcohol dependence with withdrawal, unspecified; R07.89 Other chest pain; J44.9 Chronic obstructive pulmonary disease, unspecified; F41.8 Other specified anxiety disorders; M54.2 Cervicalgia; F17.210 Nicotine dependence, cigarettes, uncomplicated; F13.10 Sedative, hypnotic or anxiolytic abuse, uncomplicated; M54.9 Dorsalgia, unspecified; W19.XXXA Unspecified fall, initial encounter; Y93.9 Activity, unspecified; Y92.89 Other specified places as the place of occurrence of the external cause; Y99.9 Unspecified external cause status
CPT/HCPCS: 36415; 70450-TC; 70545-TC; 70552-TC; 71045-TC-FY; 72125-TC; 80053; 80307; 82550; 82607; 82746; 82962; 83735; 84100; 84255; 84484; 85025; 85027; 85610; 85651; 85730; 86593; 93005; 93010; 95816; 97116-GP; 97161-GP; 99285-25; J0131; J1100; J7030

== ENCOUNTER 2018-07-01 18:55 | Emergency (ER) | payer BC ==
[2018-07-01 19:15] VITALS: BP 150/84; PULSE 77; TEMP 98.4; BMI 32.0
--- NOTE | 2018-07-01 19:15 | PDOC ---
Rapid Medical Evaluation Chief Complaint: Cold Symptoms Time Seen by Provider: 07/01/18 19:13 Medical Evaluation: Allergies Allergy/AdvReac Type Severity Reaction Status Date / Time No Known Allergies Allergy Verified 07/01/18 19:12 07/01/18 19:13 I have performed a brief in-person evaluation of this patient. The patient presents with a chief complaint of:1/2 smoker present with complains of a week h/o cough, nasal congestion, sinu pains, CEJA and light headedness. Denies fever Pertinent physical exam findings: A&O x 3. TTP to b/l maxillary sinus. lungs CTAB, heart RRR I have ordered the following: nothing The patient will proceed to the ED for further evaluation. Discharge Disposition - Diagnosis Sinusitis - Discharge Dispostion Condition at time of disposition: Stable - Referrals - Patient Instructions - Post Discharge Activity
--- NOTE | 2018-07-01 20:35 | PDOC ---
History of Present Illness - General Chief Complaint: Cold Symptoms Stated Complaint: cold symptoms Time Seen by Provider: 07/01/18 19:13 - History of Present Illness Initial Comments: 07/01/18 20:35 58-year-old female, denies comorbidities or taking home medications presents for evaluation of 3 days of sinus pressure and congestion with associated cough without systemic symptoms. Past History - Past Medical History Allergies/Adverse Reactions: Allergies Allergy/AdvReac Type Severity Reaction Status Date / Time No Known Allergies Allergy Verified 07/01/18 19:12 Home Medications: Ambulatory Orders Alprazolam [Xanax] 1 mg PO TID 09/15/17 Levetiracetam 500 mg PO BID 09/15/17 traZODone HCL [Trazodone HCl] 100 mg PO HS 09/15/17 Escitalopram Oxalate [Lexapro -] 5 mg PO DAILY #30 tablet 09/24/17 Amox-Tr/K Cl [Augmentin - 875Mg Tablet] 1 tab PO BID #20 tablet 07/01/18 Budesonide [Rhinocort Allergy] 1 spray NS ONCE #1 spray.pump 07/01/18 COPD: No HTN: Yes Hypercholesterolemia: Yes - Surgical History Cardiac Surgery: No Gastric Stapling: Yes (sleeve) GI Surgery: Yes (bariatric sx) Neurologic Surgery: No - Suicide/Smoking/Psychosocial Hx Smoking History: Current every day smoker Number of Cigarettes Smoked Daily: 10 Information on smoking cessation initiated: No Hx Alcohol Use: No Drug/Substance Use Hx: No Substance Use Type: None Hx Substance Use Treatment: No Review of Systems - Review of Systems Constitutional: Yes: Malaise. No: Fever HEENTM: Yes: Nose Congestion Respiratory: Yes: Cough *Physical Exam - Vital Signs Last Vital Signs Temp Pulse Resp BP Pulse Ox 98.4 F 77 18 150/84 96 07/01/18 19:13 07/01/18 19:13 07/01/18 19:13 07/01/18 19:13 07/01/18 19:13 - Physical Exam Comments: 07/01/18 20:34 HEAD: NC/AT EYES: Conjuntiva clear Ears: Canals and TM's normal NOSE: Clear discharge, injected turbinates. Tender frontal and maxillary sinuses. THROAT: Moist mucous membrances, oral pharanx clear, uvula midline NECK: Supple without adenopathy CARDIAC: S1 S2 LUNGS: CTA Full and Equal breath sounds ABDOMEN: Soft NT ND MS: Full ROM in all joints without edema NEUROLOGIC: No gross sensory or motor deficits, NVID SKIN: Normal color and temperature no lesions or rashes Medical Decision Making - Medical Decision Making 07/01/18 20:34 We'll treat bacterial sinusitis with Augmentin I've also given a steroid nasal spray. She was instructed to follow-up with ear nose and throat doctor . *DC/Admit/Observation/Transfer Diagnosis at time of Disposition: Sinusitis - Discharge Dispostion Disposition: HOME Condition at time of disposition: Stable Decision to Admit order: No - Prescriptions Prescriptions: Amox-Tr/K Cl [Augmentin - 875Mg Tablet] 1 tab PO BID #20 tablet Budesonide [Rhinocort Allergy] 1 spray NS ONCE #1 spray.pump - Referrals Referrals: Pito Gilmore MD [Staff Physician] - - Patient Instructions Printed Discharge Instructions: Sinusitis, DI for Sinusitis Additional Instructions: Please take the antibiotics and nasal spray as directed. Return to the emergency room for worsening symptoms. Follow-up with ear nose and throat doctor in 1-2 days for further evaluation and treatment options. Tylenol and Motrin as directed for body aches. - Post Discharge Activity
[2018-07-01] MEDS ORDERED: ACETAMINOPHEN 500 MG TABLET (FP) PO ONE (20:52)
[2018-07-01] MEDS ORDERED: ACETAMINOPHEN 500 MG TABLET (FP) ONE (21:10)
== END 2018-07-01 21:15 | disposition home or self-care (01) ==
LOC: JERFT 18:55
DX: J01.90 Acute sinusitis, unspecified (principal); I10 Essential (primary) hypertension; E78.00 Pure hypercholesterolemia, unspecified
CPT/HCPCS: 99281-25

== ENCOUNTER 2019-03-18 12:38 | Inpatient (IN) | payer BC ==
[2019-03-18] MEDS ORDERED: ACETAMINOPHEN 1000 MG/100 ML VIAL (NON FORMULARY) IVPB ONE (13:30)
[2019-03-18] MEDS ORDERED: methylPREDNISolone NA SUCC 125 MG/2 ML VIAL IVPUSH ONE (13:30)
--- NOTE | 2019-03-18 13:37 | PDOC ---
History of Present Illness - General Chief Complaint: Respiratory Stated Complaint: CHILLS AND FEVER Time Seen by Provider: 03/18/19 12:50 - History of Present Illness Initial Comments: Lana Venegas is a 59yo woman with a PMH of COPD, current smoking, who presents with one day of subjective fever, chills, body aches, productive cough, and nasal congestion. She states that she "feels miserable." She used her home albuterol nebulizer with some improvement, but continued to feel unwell. Her son also noted that she was breathing very hard and much faster than normal, so he was concerned. Ms Venegas notes that she recently saw her grandchildren, who were diagnosed with RSV and influenza. Ms Venegas has not noticed fever but says that she has felt cold and has had body aches; she took Aleve this morning with only minimal improvement. Her son convinced her to come for evaluation. Past History - Past Medical History Allergies/Adverse Reactions: Allergies Allergy/AdvReac Type Severity Reaction Status Date / Time No Known Allergies Allergy Verified 03/18/19 13:18 Home Medications: Ambulatory Orders traZODone HCL [Trazodone HCl] 100 mg PO HS 09/15/17 COPD: No HTN: Yes Hypercholesterolemia: Yes - Surgical History Cardiac Surgery: No Gastric Stapling: Yes (sleeve) GI Surgery: Yes (bariatric sx) Neurologic Surgery: No - Psycho Social/Smoking Cessation Hx Smoking History: Current every day smoker Number of Cigarettes Smoked Daily: 10 Information on smoking cessation initiated: Yes Hx Alcohol Use: No Drug/Substance Use Hx: No Substance Use Type: None Hx Substance Use Treatment: No Review of Systems - Review of Systems Comments:: General: +Fever/chills, no weight or appetite change, + malaise HEENT: No changes in vision, no changes in hearing, + congestion, no sore throat CV: + chest pain, no palpitations, no LE edema Pulm: No SOB, no cough, no wheezing GI: No nausea or vomiting, no change in bowel habits, no melena : No frequency, no urgency, no dysuria Musc: No back pain, no joint swelling, no recent injury Skin: No rash, no lesions, no erythema Endo: No excessive thirst, no heat/cold intolerance Heme: No unusual bruising or bleeding, no swollen glands Neuro: No syncope, no numbness/tingling, no focal weakness Vasc: No claudication Psych: No recent change in mood, no SI or HI *Physical Exam - Vital Signs Last Vital Signs Temp Pulse Resp BP Pulse Ox 99.4 F 77 20 136/96 94 L 03/18/19 12:40 03/18/19 12:40 03/18/19 13:17 03/18/19 12:40 03/18/19 13:17 - Physical Exam General: Uncomfortable but in no acute distress HEENT: Atraumatic, PERRL, EOMI, MMM, voice normal, normal neck ROM Cards: RRR, no murmur appreciated Pulm: Tachypnic on RA, sats WNL. Diminished breath sounds b/l without wheezing, crackles in right lung base. Productive cough Abd: Soft, nontender, nondistended Ext: Atraumatic. No LE edema. ROM intact. WWP Skin: Normal color, no rashes or lesions Neuro: A&Ox3, CN grossly intact, normal speech, motor/sensory grossly intact and symmetric Psych: Mood appropriate to situation ED Treatment Course - LABORATORY CBC & Chemistry Diagram: 03/18/19 13:49 03/18/19 13:49 - RADIOLOGY Radiology Studies Ordered: Category Date Time Status CHEST X-RAY PORTABLE* [RAD] Stat Radiology 03/18/19 13:24 Ordered Medical Decision Making - Medical Decision Making 03/18/19 13:36 Lana Venegas is a 59yo woman with a PMH of COPD, current smoking, who presents with one day of subjective fever, chills, body aches, productive cough, and nasal congestion. She reports recent exposure to both influenza and RSV. - Most likely COPD exacerbation, could also be influenza, pneumonia, RSV - CBC, CMP, CXR, RSV, flu - Duonebs, solu-medrol, acetaminophen 03/18/19 14:17 - Pt now vomiting. Zofran ordered 03/18/19 15:23 - Labs reviewed. No concerning abnormalities on CBC or chemistry - Flu and RSV pending - CXR reviewed. Appears congested, large heart. No prior dx of CHF. BNP added - Pt reports no improvement in her symptoms. Recently received meds, will reassess in 10-15 minutes. Likely to admit. Call placed to PMD, Dr Nichole 03/18/19 17:27 - No improvement in symptoms on reassessment. - Flu and RSV negative - Dr Nichole contacted, spoke to Dr Sifuentes. Agrees with plan for lasix for possible CHF - Pt seen and examined by Dr Nichole. Will admit to telemetry Discussed with Dr Bear Hendrix PGY2 Discharge - Discharge Information Problems reviewed: Yes Clinical Impression/Diagnosis: COPD exacerbation CHF exacerbation Qualifiers: Heart failure type: diastolic Qualified Code(s): I50.33 - Acute on chronic diastolic (congestive) heart failure Condition: Stable - Admission Yes - Follow up/Referral - Patient Discharge Instructions - Post Discharge Activity
--- NOTE | 2019-03-18 13:45 | PDOC ---
Attending Attestation - Resident Resident Name: Abbey Hendrix - ED Attending Attestation I have performed the following: I have examined & evaluated the patient, The case was reviewed & discussed with the resident, I agree w/resident's findings & plan, Exceptions are as noted - HPI HPI: 03/18/19 19:00 59 years old with past medical history significant for COPD current tobacco presents with fever chills body aches productive cough some nasal congestion multiple sick contacts at home influenza and flu - Physicial Exam PE: 03/18/19 19:00 Vitals: Triage Vital signs reviewed General Appearance: No acute distress, well nourished well developed, Head: Atraumatic, Eyes: Pupils equal reactive round, extraocular movement intact Cardiac: Regular rate and rhythym, no murmurs, no rubs, no gallops, Lungs: End expiratory wheezing bilaterally abdomen: Soft, non distended, normal bowel sounds, non tender to palpation Extremities: Full range of motion to all extremities, no cyanosis, clubbing, or edema Skin: Warm and dry, no rashes or lesions, no rash, no petechiae Psych: Normal mood, normal affect - Medical Decision Making 03/18/19 19:01 59 years old with COPD exacerbation secondary to influenza-like illness we will treat with steroids nebs Zofran for posttussive emesis observe and reassess Chest x-ray demonstrates cardiomegaly and congestive changes this is new for patient given myriad of findings COPD exacerbation and possibly new onset CHF will admit to hospitalist for further management. Heart Score/ECG Review - ECG Impressions Comment:: 03/18/19 17:56 EKG performed at 1746 demonstrates sinus rhythm no ST elevations or T wave inversions Interpreted no 1 to find out like what her meds are with by me
[2019-03-18] MEDS ORDERED: ALBUTEROL SO4 2.5/IPRATROPIUM 0.5 INH SOL 3 ML VIAL.NEB. NEB ONE (13:51)
[2019-03-18] MEDS ORDERED: ACETAMINOPHEN INJECTION 100 ML IVPB ONE (13:52)
[2019-03-18] MEDS ORDERED: methylPREDNISolone NA SUCC 125 MG/2 ML VIAL ONE (13:52)
[2019-03-18] MEDS: ALBUTEROL SO4 2.5/IPRATROPIUM 0.5 INH SOL 3 ML VIAL.NEB. NEB SCH ×3 (14:10→14:44)
[2019-03-18] MEDS ORDERED: ONDANSETRON 4 MG/2 ML VIAL IVPUSH ONE (14:13)
[2019-03-18] MEDS ORDERED: ONDANSETRON 4 MG/2 ML VIAL ONE (14:25)
[2019-03-18] MEDS ORDERED: SODIUM CHLORIDE 0.9% 500 ML INFUS.BAG IV ONE (14:26)
[2019-03-18 14:48] LABS: BASO % 0.6 % (0-2.0); HEMATOCRIT 42.3 % (32.4-45.2); HEMOGLOBIN 13.6 GM/dl (10.7-15.3); MCH 32.5 pg (25.7-33.7); MCHC 32.3 g/dl (32.0-36.0); MEAN CELL VOLUME 100.7 fl (80-96); MEAN PLT VOLUME 8.6 fl (7.5-11.1); MONO % 8.5 % (3.8-10.2); NEUT % 85.9 % (42.8-82.8); PLATELET COUNT 140 K/MM3 (134-434); RDW 12.9 % (11.6-15.6); WHITE BLOOD COUNT 4.9 K/mm3 (4.0-10.8)
[2019-03-18 14:51] LABS: ALBUMIN 3.8 g/dl (3.4-5.0); BILIRUBIN,TOTAL 0.8 mg/dl (0.2-1); CREATININE 0.7 mg/dl (0.55-1.3); POTASSIUM 3.7 mmol/L (3.5-5.1)
[2019-03-18] MEDS ORDERED: FUROSEMIDE 40 MG/4 ML INJECTABLE VIAL IVPUSH ONE (15:44)
[2019-03-18] MEDS ORDERED: FUROSEMIDE 40 MG/4 ML INJECTABLE VIAL ONE (15:51)
--- NOTE | 2019-03-18 16:03 | HP ---
Admitting History and Physical - Primary Care Physician PCP: Marija Nichole - Admission Chief Complaint: cough congestion History of Present Illness: Lana Venegas is a 59yo woman with a PMH of COPD, current smoking, who presents with one day of subjective fever, chills, body aches, productive cough, and nasal congestion. She states that she "feels miserable." She used her home albuterol nebulizer with some improvement, but continued to feel unwell. Her son also noted that she was breathing very hard and much faster than normal, so he was concerned. Ms Venegas notes that she recently saw her grandchildren, who were diagnosed with RSV and influenza. Ms Venegas has not noticed fever but says that she has felt cold and has had body aches; she took Aleve this morning with only minimal improvement. Her son convinced her to come for evaluation. History Source: Patient Limitations to Obtaining History: No Limitations - Past Medical History Pulmonary: Yes: COPD - Smoking History Smoking history: Current every day smoker Have you smoked in the past 12 months: Yes Aproximately how many cigarettes per day: 10 - Alcohol/Substance Use Hx Alcohol Use: No History of Substance Use: reports: None - Social History Usual Living Arrangement: Yes: With Spouse Do you think of yourself as: Straight/Heterosexual ADL: Independent History of Recent Travel: No Home Medications - Allergies Allergies/Adverse Reactions: Allergies Allergy/AdvReac Type Severity Reaction Status Date / Time No Known Allergies Allergy Verified 03/18/19 13:18 - Home Medications Home Medications: Ambulatory Orders traZODone HCL [Trazodone HCl] 100 mg PO HS 09/15/17 Family Medical History Family History: Unremarkable Review of Systems - Review of Systems Constitutional: reports: Chills, Fever, Loss of Appetite, Weakness (general). denies: Lethargy Eyes: denies: Blind Spots, Blurred Vision, Double Vision, Eye Pain HENT: reports: Nasal Congestion, Throat Pain. denies: Difficult Swallowing, Ear Pain, Epistaxis Neck: denies: Decreased ROM, Lumps, Pain on Movement, Stiffness, Tenderness Cardiovascular: reports: Chest Pain. denies: Edema, Palpitations, Shortness of Breath Respiratory: reports: Cough. denies: Hemoptysis, Orthopnea, PND, SOB, SOB on Exertion Gastrointestinal: denies: Abdominal Pain, Constipation, Diarrhea, Melena, Nausea , Rectal Bleeding, Vomiting Genitourinary: denies: Dysuria, Flank Pain, Hematuria Musculoskeletal: reports: Muscle Pain (all over). denies: Back Pain Integumentary: denies: Change in Color, Eczema, Erythema, Pruritis, Rash, Wound Neurological: reports: Weakness (general). denies: Change in LOC, Change in Speech, Confusion, Dizziness, Headache, Seizure, Syncope Endocrine: denies: Excessive Sweating, Flushing, Unexplained Weight Gain, Unexplained Weight Loss Hematology/Lymphatic: denies: Easily Bruised, Excessive Bleeding Psychiatric: reports: Altered Sleep Pattern (insomnia), Anxiety, Depression. denies: Panic, Paranoia, Suicidal Physical Examination Vital Signs: Vital Signs Temperature 99.4 F 03/18/19 12:40 Pulse Rate 77 03/18/19 12:40 Respiratory Rate 03/18/19 13:17 Blood Pressure 136/96 03/18/19 12:40 O2 Sat by Pulse Oximetry (%) 94 L 03/18/19 13:17 Constitutional: Yes: No Distress, Anxious Eyes: Yes: Conjunctiva Clear HENT: Yes: Atraumatic Neck: Yes: Supple Cardiovascular: Yes: Regular Rate and Rhythm Respiratory: Yes: CTA Bilaterally Gastrointestinal: Yes: Soft. No: Tenderness Renal/: No: Hematuria Musculoskeletal: No: Joint Stiffness, Joint Swelling Extremities: No: Cold, Cool, Cyanosis Edema: No Integumentary: No: Bruising, Rash, Venous Stasis Changes Neurological: Yes: WNL, Alert, Oriented ...Motor Strength: WNL Psychiatric: Yes: WNL, Alert, Oriented. No: Agitated, Suicidal Ideation Labs: CBC, BMP 03/18/19 13:49 03/18/19 13:49 Imaging - Results Chest X-ray: Report Reviewed Assessment/Plan Lana Venegas is a 59yo woman with a PMH of COPD, current smoking, who presents with one day of subjective fever, chills, body aches, productive cough, and nasal congestion. She states that she "feels miserable." had recent contact with children with RSV and influenza. CXR c/w CHF - CE negative, EKG WNL; BNP elevated r/o new onset CHF admit; cardiology eval; echo rapid flu negative; will send PCR IV ATB; po tamiflu; strongly advised stop tobacco received iv lasix and iv solumedrol in ER - continue, low doses albuterol nebs prn DVT pfx; f/u labs d/w pt and grand daughter at bedside
--- NOTE | 2019-03-18 17:04 | CON.CARD ---
Consult Consult Specialty:: Cardiology Referred by:: Marija Nichole MD Reason for Consultation:: Pulm edema - History of Present Illness Chief Complaint: Chest pain, dyspnea History of Present Illness: Lana Venegas is a 59yo woman with a PMH of COPD, current smoking, who presents with one day of subjective fever, chills, body aches, productive cough, and nasal congestion. She states that she "feels miserable." She used her home albuterol nebulizer with some improvement, but continued to feel unwell, she took Aleve this morning with only minimal improvement. Her son also noted that she was breathing very hard and much faster than normal, so he was concerned. Ms Venegas notes that she recently saw her grandchildren, who were diagnosed with RSV and influenza. Flu A, B and RSV negative. She reports chest tightness, dyspnea, orthopnea w/o near or true syncope, palpittaions, PND or LE edema. - History Source History Provided By: Patient Limitations to Obtaining History: No Limitations - Alcohol/Substance Use Hx Alcohol Use: No - Smoking History Smoking history: Current every day smoker Aproximately how many cigarettes per day: 10 - Social History Usual Living Arrangement: Alone Home Medications - Allergies Allergies/Adverse Reactions: Allergies Allergy/AdvReac Type Severity Reaction Status Date / Time No Known Allergies Allergy Verified 03/18/19 13:18 - Home Medications Home Medications: Ambulatory Orders traZODone HCL [Trazodone HCl] 100 mg PO HS 09/15/17 Review of Systems - Review of Systems Cardiovascular: reports: Shortness of Breath Respiratory: reports: Exercise Intolerance, Orthopnea, SOB on Exertion Vital Signs: Vital Signs Temperature 99.9 F H 03/18/19 16:00 Pulse Rate 96 H 03/18/19 16:00 Respiratory Rate 22 H 03/18/19 16:00 Blood Pressure 138/75 03/18/19 16:00 O2 Sat by Pulse Oximetry (%) 92 L 03/18/19 16:09 Constitutional: Yes: No Distress, Calm Neck: Yes: Supple Respiratory: Yes: Regular, Diminished, On Nasal O2 Gastrointestinal: Yes: Normal Bowel Sounds, Soft Cardiovascular: Yes: Regular Rate and Rhythm JVD: No Carotid Bruit: No Heart Sounds: Yes: S1, S2 Murmur: Yes: Systolic Murmur, Grade 1 Edema: No - Other Data Labs, Other Data: CBC, BMP 03/18/19 13:49 03/18/19 13:49 NSR @ [address]-T changes Echo: Pending Imaging - Results Chest X-ray: Report Reviewed (Congestion) Problem List - Problems (1) Acute respiratory failure with hypoxia Code(s): J96.01 - ACUTE RESPIRATORY FAILURE WITH HYPOXIA (2) CHF exacerbation Code(s): I50.9 - HEART FAILURE, UNSPECIFIED Qualifiers: Heart failure type: diastolic Qualified Code(s): I50.33 - Acute on chronic diastolic (congestive) heart failure (3) COPD exacerbation Code(s): J44.1 - CHRONIC OBSTRUCTIVE PULMONARY DISEASE W (ACUTE) EXACERBATION Assessment/Plan 1. Acute hypoxic respiratory failure 2. Acute on chronic diastolic heart failure 3. Alcohol dependence in remission 4. H/o subdural Hematoma 5. COPD 6. Current smoking P:1. IV diuresis with monitor diuretic response, renal fxn and electrolytes 2. Echocardiogram to assess ventricular and valve fxn, f/u BNP, TSH, chest CT 3. BD, IV steroids, empiric abx, O2 as needed to maintain saO2>90% 4. Thank you for consultative opportunity
[2019-03-18] MEDS: NICOTINE 14 MG/24 HOURS TOPICAL PATCH TD SCH (18:25)
[2019-03-18] MEDS: methylPREDNISolone NA SUCC 40 MG/1 ML VIAL IVPUSH SCH (18:25)
[2019-03-18] MEDS: ACETAMINOPHEN 325 MG TABLET (FP) PO PRN (18:25)
[2019-03-18 18:39] VITALS: BMI 27.6
[2019-03-18] MEDS: ACETAMINOPHEN WITH CODEINE 300MG/30MG TABLET PO PRN (19:45)
[2019-03-18] MEDS: OSELTAMIVIR PHOSPHATE 75 MG CAPSULE PO SCH (21:37)
[2019-03-18] MEDS: HEPARIN NA (PORCINE) 5,000 UNITS/ML 1ML VIAL SQ SCH (21:37)
[2019-03-18] MEDS ORDERED: traZODone HCL 100 MG TABLET (FP) PO SCH (22:00)
[2019-03-19] MEDS: ACETAMINOPHEN 325 MG TABLET (FP) PO PRN ×3 (03:15→20:20)
[2019-03-19] MEDS: methylPREDNISolone NA SUCC 40 MG/1 ML VIAL IVPUSH SCH ×3 (03:20→22:05)
[2019-03-19] MEDS: guaiFENesin 200 MG/10 ML 10 ML UNIT-DOSE CUPS PO PRN (06:45)
--- NOTE | 2019-03-19 07:13 | PN ---
Progress Note, Physician Chief Complaint: breathing better but has some epigastric and L sided mild abd pain no N/V but no appetite, had BM yesterday not today but passed gas - Current Medication List Current Medications: Active Medications Acetaminophen (Tylenol -) 650 mg PO Q6H PRN PRN Reason: FEVER Last Admin: 03/19/19 03:15 Dose: 650 mg Acetaminophen/Codeine Phosphate (Tylenol # 3 -) 1 tab PO Q8H PRN PRN Reason: PAIN LEVEL 7 - 10 Last Admin: 03/18/19 19:45 Dose: 1 tab Albuterol Sulfate (Ventolin 0.083% Nebulizer Soln -) 1 amp NEB Q4H PRN PRN Reason: SHORT OF BREATH/WHEEZING Furosemide (Lasix Injection -) 40 mg IVPUSH DAILY [facility] Guaifenesin (Robitussin -) 5 ml PO Q6H PRN PRN Reason: COUGH Last Admin: 03/19/19 06:45 Dose: 5 ml Heparin Sodium (Porcine) (Heparin -) 5,000 unit SQ BID [facility] Last Admin: 03/18/19 21:37 Dose: 5,000 unit Azithromycin (Zithromax 500mg Ivpb (Pre-Docked)) 500 mg in 250 mls @ 250 mls/ hr IVPB DAILY [facility] Ceftriaxone Sodium 1 gm/ (Dextrose) 50 mls @ 100 mls/hr IVPB DAILY [facility] Methylprednisolone Sodium Succinate (Solu-Medrol -) 40 mg IVPUSH Q8H-IV JULY Last Admin: 03/19/19 03:20 Dose: 40 mg Nicotine (Nicoderm Patch -) 14 mg TD DAILY [facility] Last Admin: 03/18/19 18:25 Dose: 14 mg Oseltamivir Phosphate (Tamiflu -) 75 mg PO BID [facility] Stop: 03/23/19 21:59 Last Admin: 03/18/19 21:37 Dose: 75 mg Trazodone HCl (Desyrel -) 100 mg PO HS [facility] Last Admin: 03/18/19 21:37 Dose: 100 mg - Objective Vital Signs: Vital Signs Temperature 98.2 F 03/19/19 06:25 Pulse Rate 66 03/19/19 06:25 Respiratory Rate 19 03/19/19 06:25 Blood Pressure 147/74 03/19/19 06:25 O2 Sat by Pulse Oximetry (%) 96 03/19/19 06:25 Constitutional: Yes: No Distress, Calm Eyes: Yes: Conjunctiva Clear HENT: Yes: Atraumatic Neck: Yes: Supple Cardiovascular: Yes: Regular Rate and Rhythm Respiratory: Yes: CTA Bilaterally Gastrointestinal: Yes: Soft, Tenderness (mild L and epigastric tenderness) Genitourinary: No: Hematuria Musculoskeletal: No: Joint Stiffness, Joint Swelling Extremities: No: Cold, Cool Edema: No Integumentary: No: Rash, Venous Stasis Changes Neurological: Yes: Alert, Oriented ...Motor Strength: WNL Psychiatric: Yes: Alert, Oriented. No: Agitated, Suicidal Ideation - ....Imaging Other: Report Reviewed Assessment/Plan Lana Venegas is a 59yo woman with a PMH of COPD, current smoking, who presents with one day of subjective fever, chills, body aches, productive cough, and nasal congestion. She states that she "feels miserable." had recent contact with children with RSV and influenza. CXR c/w CHF - CE negative, EKG WNL; BNP elevated r/o new onset CHF pulm and cardiology eval; echo rapid flu negative; PCR pending IV ATB; po tamiflu; strongly advised stop tobacco po lasix and iv solumedrol albuterol nebs prn mild abd pain: KUB, abdomen CT if not better and GI eval DVT pfx; f/u labs d/w pt and at bedside
[2019-03-19] MEDS: ACETAMINOPHEN WITH CODEINE 300MG/30MG TABLET PO PRN ×2 (07:34→15:49)
[2019-03-19 07:54] LABS: ALBUMIN 3.7 g/dl (3.4-5.0); BILIRUBIN,TOTAL 0.5 mg/dl (0.2-1); CALCIUM 8.7 mg/dl (8.5-10); CREATININE 0.6 mg/dl (0.55-1.3); POTASSIUM 4.3 mmol/L (3.5-5.1); TOT PROT 6.3 g/dl (6.4-8.2)
[2019-03-19 08:01] LABS: HEMATOCRIT 42.5 % (32.4-45.2); HEMOGLOBIN 14.3 GM/dl (10.7-15.3); LYMPH % 7.1 % (8-40); MCH 33.6 pg (25.7-33.7); MCHC 33.7 g/dl (32.0-36.0); MEAN CELL VOLUME 99.7 fl (80-96); MEAN PLT VOLUME 9.1 fl (7.5-11.1); MONO % 3.7 % (3.8-10.2); NEUT % 89.2 % (42.8-82.8); PLATELET COUNT 142 K/MM3 (134-434); RBC 4.27 M/mm3 (3.60-5.2); RDW 12.4 % (11.6-15.6); WHITE BLOOD COUNT 6.6 K/mm3 (4.0-10.8)
[2019-03-19] MEDS: AZITHROMYCIN IVPB 500 MG/250 ML BAG IVPB SCH (09:50)
[2019-03-19] MEDS: CEFTRIAXONE 1 G/50 ML PREMIX 50 ML IVPB SCH (09:50)
[2019-03-19] MEDS: NICOTINE 14 MG/24 HOURS TOPICAL PATCH TD SCH (09:50)
[2019-03-19] MEDS: HEPARIN NA (PORCINE) 5,000 UNITS/ML 1ML VIAL SQ SCH ×2 (09:51→22:05)
[2019-03-19] MEDS: OSELTAMIVIR PHOSPHATE 75 MG CAPSULE PO SCH ×2 (09:55→22:05)
[2019-03-19] MEDS ORDERED: FUROSEMIDE 40 MG/4 ML INJECTABLE VIAL IVPUSH SCH (10:00)
[2019-03-19] MEDS ORDERED: CEFTRIAXONE 1 GM in DEXTROSE 5%-WATER - 50 ML IVPB SCH (10:00)
--- NOTE | 2019-03-19 11:40 | EKG ---
Test Reason : Blood Pressure : / mmHG Vent. Rate : 079 BPM Atrial Rate : 079 BPM P-R Int : 114 ms QRS Dur : 098 ms QT Int : 378 ms P-R-T Axes : 048 067 043 degrees QTc Int : 433 ms NORMAL SINUS RHYTHM NORMAL ECG WHEN COMPARED WITH ECG OF 04-JUL-2018 12:23, NO SIGNIFICANT CHANGE WAS FOUND Confirmed by Haseeb Franlkin MD ([id number]) on 03/19/2019 11:39:57 AM Referred By: Confirmed By:Haseeb Franklin MD
--- NOTE | 2019-03-19 14:42 | CON.PULM ---
Consult Consult Specialty:: PULMONARY Referred by:: PMTom Reason for Consultation:: SOB/COUGH - History of Present Illness Chief Complaint: SOB/COUGH History of Present Illness: Lana Venegas is a 59yo woman with a PMH of COPD, current smoker, who presents with one day of subjective fever, chills, body aches, productive cough, and nasal congestion. She states that she "feels miserable." She used her home albuterol nebulizer with some improvement, but continued to feel unwell. Her son also noted that she was breathing very hard and much faster than normal, so he was concerned. Ms Venegas notes that she recently saw her grandchildren, who were diagnosed with RSV and influenza. Ms Venegas has not noticed fever but says that she has felt cold and has had body aches; she took Aleve with only minimal improvement. Her son convinced her to come for evaluation. - History Source History Provided By: Patient, Medical Record Limitations to Obtaining History: No Limitations - Past Medical History OBJECTIVE C DEVELOPER: No: Alzheimer's Cardio/Vascular: No: AFIB Pulmonary: Yes: COPD. No: O2 Dependent Gastrointestinal: No: Ascites Hepatobiliary: No: Cirrhosis Renal/: No: Renal Failure Reproductive: Yes: Postmenopausal ...: No - Alcohol/Substance Use Hx Alcohol Use: No - Smoking History Smoking history: Current every day smoker Have you smoked in the past 12 months: No Aproximately how many cigarettes per day: 10 - Social History Usual Living Arrangement: Alone Home Medications - Allergies Allergies/Adverse Reactions: Allergies Allergy/AdvReac Type Severity Reaction Status Date / Time No Known Allergies Allergy Verified 03/18/19 13:18 - Home Medications Home Medications: Ambulatory Orders traZODone HCL [Trazodone HCl] 100 mg PO HS 09/15/17 Family Medical History Family History: Unremarkable Review of Systems - Review of Systems Constitutional: reports: Fever Eyes: denies: Blurred Vision HENT: denies: Difficult Swallowing Neck: denies: Decreased ROM Cardiovascular: reports: Shortness of Breath. denies: Chest Pain Respiratory: reports: Cough, Exercise Intolerance, Orthopnea, SOB, SOB on Exertion. denies: Hemoptysis, Wheezing Gastrointestinal: reports: Abdominal Pain Genitourinary: reports: No Symptoms Breasts: reports: No Symptoms Reported Physical Exam Vital Sings: Vital Signs Temperature 98.2 F 03/19/19 14:07 Pulse Rate 62 03/19/19 14:07 Respiratory Rate 17 03/19/19 14:07 Blood Pressure 136/72 03/19/19 14:07 O2 Sat by Pulse Oximetry (%) 94 L 03/19/19 14:07 Constitutional: Yes: Anxious Eyes: Yes: EOM Intact HENT: Yes: Normocephalic Cardiovascular: Yes: Regular Rate and Rhythm Respiratory: Yes: Diminished Gastrointestinal: Yes: Normal Bowel Sounds Edema: No Neurological: Yes: Alert Psychiatric: Yes: Alert Labs: CBC, BMP 03/19/19 07:10 03/19/19 07:10 rest reviewed Imaging - Results Chest X-ray: Report Reviewed, Image Reviewed Cat Scan: Image Reviewed Problem List - Problems (1) Acute respiratory failure with hypoxia Code(s): J96.01 - ACUTE RESPIRATORY FAILURE WITH HYPOXIA (2) CHF exacerbation Code(s): I50.9 - HEART FAILURE, UNSPECIFIED Qualifiers: Heart failure type: diastolic Qualified Code(s): I50.33 - Acute on chronic diastolic (congestive) heart failure (3) COPD exacerbation Code(s): J44.1 - CHRONIC OBSTRUCTIVE PULMONARY DISEASE W (ACUTE) EXACERBATION (4) Anxiety and depression Code(s): F41.9 - ANXIETY DISORDER, UNSPECIFIED; F32.9 - MAJOR DEPRESSIVE DISORDER, SINGLE EPISODE, UNSPECIFIED (5) Intraparenchymal hematoma of brain Code(s): S06.360A - TRAUM HEMOR CEREB, W/O LOSS OF CONSCIOUSNESS, INIT (6) Subdural hematoma Code(s): S06.5X9A - TRAUM SUBDR HEM W LOC OF UNSP DURATION, INIT Assessment/Plan Cardiomegaly/elevated bnp/congestive changes on cxr/hypoxemia Central bronchiectasis/RML mild nodular infiltrate/official reading pending Mid epigastric abd pain agree with o2 supplementation/bronchodilators echo in progress tamiflu(recent influ exposure/swab negative) nodular infiltrate on dual abs for cabp may need trial of diuretic (will defer to cardio) will order FUA xray Will follow Steven Shankar MD
--- NOTE | 2019-03-19 15:47 | ECHO ---
Name: SYD ARANA Exam:Adult Echocardiogram Study Date: 03/19/2019 02:27 PM Age: 59 yrs Reason For Study: r/o CHF Height: 62 in Weight: 146 lb BSA: 1.7 m2 MMode/2D Measurements & Calculations IVSd: 1.3 cm Ao root diam: 2.8 cm LVIDd: 4.3 cm LA dimension: 4.0 cm LVIDs: 3.0 cm ACS: 1.8 cm LVPWd: 1.2 cm EDV(Teich): 82.4 ml LVOT diam: 2.1 cm ESV(Teich): 33.8 ml Doppler Measurements & Calculations MV E max herb: 103.1 cm/sec MV A max herb: 136.6 cm/sec MV dec slope: 422.7 cm/sec2 MV E/A: 0.75 Ao V2 max: 148.0 cm/sec LV V1 max P.0 mmHg Ao max P.8 mmHg LV V1 mean P.0 mmHg Ao V2 mean: 100.1 cm/sec LV V1 max: 141.0 cm/sec Ao mean P.5 mmHg LV V1 mean: 90.6 cm/sec Ao V2 VTI: 32.0 cm LV V1 VTI: 31.4 cm LUIS ANGEL(I,D): 3.3 cm2 LUIS ANGEL(V,D): 3.2 cm2 MR max herb: 523.4 cm/sec SV(LVOT): 105.1 ml MR max P.6 mmHg TR max herb: 281.9 cm/sec PA V2 max: 94.2 cm/sec TR max P.9 mmHg PA max P.6 mmHg PI end-d herb: 92.6 cm/sec Procedure A complete two-dimensional transthoracic echocardiogram was performed (2D, M-mode, Doppler and color flow Doppler). Left Ventricle There is mild concentric left ventricular hypertrophy. The left ventricular ejection fraction is norm al. Ejection Fraction = 65%. E/A reversal consistent with but not diagnostic of poor LV compliance. The l eft ventricular wall motion is normal. Right Ventricle The right ventricle is normal in size and function. Atria Normal left and right atrial size and function. Mitral Valve There is mild to moderate mitral valve thickening. There is mild to moderate mitral annular calcifica tion. There is mild mitral regurgitation. The mitral regurgitant jet is eccentrically directed. Tricuspid Valve The tricuspid valve is normal in structure and function. There is moderate tricuspid regurgitation. R ight ventricular systolic pressure is elevated at 41 mmhg. Assuming the RA pressure is 10 mmHg. There is m ild pulmonary hypertension. Aortic Valve The aortic valve is normal in structure and function. Pulmonic Valve The pulmonic valve is normal in structure and function. Trace to mild pulmonic valvular regurgitation . Great Vessels The aortic root is normal size. Pericardium/Pleura There is no pericardial effusion. There is no pleural effusion. Interpretation Summary There is mild concentric left ventricular hypertrophy. The left ventricular wall motion is normal. Ejection Fraction = 65%. There is mild to moderate mitral valve thickening. There is mild to moderate mitral annular calcification. There is mild mitral regurgitation. The mitral regurgitant jet is eccentrically directed. There is moderate tricuspid regurgitation. Right ventricular systolic pressure is elevated at 41 mmhg. Assuming the RA pressure is 10 mmHg There is mild pulmonary hypertension. Trace to mild pulmonic valvular regurgitation. MD Haseeb Franklin 03/19/2019 03:47 PM
--- NOTE | 2019-03-19 17:42 | PN ---
Progress Note, Physician History of Present Illness: She reports dyspnea, orthopnea, and abdominal pain persists, denies chest pain. - Current Medication List Current Medications: Active Medications Acetaminophen (Tylenol -) 650 mg PO Q6H PRN PRN Reason: FEVER Last Admin: 03/19/19 12:50 Dose: 650 mg Acetaminophen/Codeine Phosphate (Tylenol # 3 -) 1 tab PO Q8H PRN PRN Reason: PAIN LEVEL 7 - 10 Last Admin: 03/19/19 15:49 Dose: 1 tab Albuterol Sulfate (Ventolin 0.083% Nebulizer Soln -) 1 amp NEB Q4H PRN PRN Reason: SHORT OF BREATH/WHEEZING Furosemide (Lasix Injection -) 40 mg IVPUSH DAILY [facility] Last Admin: 03/19/19 09:51 Dose: 40 mg Guaifenesin (Robitussin -) 5 ml PO Q6H PRN PRN Reason: COUGH Last Admin: 03/19/19 06:45 Dose: 5 ml Heparin Sodium (Porcine) (Heparin -) 5,000 unit SQ BID [facility] Last Admin: 03/19/19 09:51 Dose: 5,000 unit Azithromycin (Zithromax 500mg Ivpb (Pre-Docked)) 500 mg in 250 mls @ 250 mls/ hr IVPB DAILY [facility] Last Admin: 03/19/19 09:50 Dose: 250 mls/hr Ceftriaxone Sodium (Ceftriaxone 1 Gm-D5w Bag) 50 mls @ 100 mls/hr IVPB DAILY [facility] Last Admin: 03/19/19 09:50 Dose: 100 mls/hr Methylprednisolone Sodium Succinate (Solu-Medrol -) 40 mg IVPUSH Q12H [facility] Nicotine (Nicoderm Patch -) 14 mg TD DAILY [facility] Last Admin: 03/19/19 09:50 Dose: 14 mg Oseltamivir Phosphate (Tamiflu -) 75 mg PO BID [facility] Stop: 03/23/19 21:59 Last Admin: 03/19/19 09:55 Dose: 75 mg Trazodone HCl (Desyrel -) 100 mg PO HS [facility] Last Admin: 03/18/19 21:37 Dose: 100 mg - Objective Vital Signs: Vital Signs Temperature 98.2 F 03/19/19 14:07 Pulse Rate 62 03/19/19 14:07 Respiratory Rate 17 03/19/19 14:07 Blood Pressure 136/72 03/19/19 14:07 O2 Sat by Pulse Oximetry (%) 94 L 03/19/19 14:07 Constitutional: Yes: No Distress, Calm, Thin Neck: Yes: Supple Cardiovascular: Yes: Regular Rate and Rhythm Respiratory: Yes: Regular, Diminished, On Nasal O2 Gastrointestinal: Yes: Normal Bowel Sounds, Soft, Tenderness Edema: No Labs: CBC, BMP 03/19/19 07:10 03/19/19 07:10 - ....Imaging X-ray: Report Reviewed (AXR: Abd distension and air mostly in small bowel) Problem List - Problems (1) Acute respiratory failure with hypoxia Code(s): J96.01 - ACUTE RESPIRATORY FAILURE WITH HYPOXIA (2) CHF exacerbation Code(s): I50.9 - HEART FAILURE, UNSPECIFIED Qualifiers: Heart failure type: diastolic Qualified Code(s): I50.33 - Acute on chronic diastolic (congestive) heart failure (3) COPD exacerbation Code(s): J44.1 - CHRONIC OBSTRUCTIVE PULMONARY DISEASE W (ACUTE) EXACERBATION Assessment/Plan 03/19/2019 Echo: Mild cLVH with normal LVEF 65%, mild MR, mod TR 41 mmHg, mild UT 03/19/[address]: Prelim Central bronchiectasis/RML mild nodular infiltrate/ official reading pending 1. Acute hypoxic respiratory failure 2. Acute on chronic diastolic heart failure 3. Alcohol dependence in remission 4. H/o subdural Hematoma 5. COPD 6. Current smoking 7. R/o pSBO P:1. Oral diuresis with monitor diuretic response, renal fxn and electrolytes, start losartan 25 qd with uptitration as tolerated 2. F/u chest CT and abd pelvic CT, bowel rest 3. BD, IV steroids, empiric abx, O2 as needed to maintain saO2>90%, Tamiflu course 4. Thank you for consultative opportunity
[2019-03-19] MEDS ORDERED: traZODone HCL 100 MG TABLET (FP) PO PRN (20:21)
[2019-03-19] MEDS: ALBUTEROL SO4 0.083% IH SOL 2.5 MG/3 ML VIAL.NEB. NEB PRN (20:22)
[2019-03-20] MEDS: ACETAMINOPHEN WITH CODEINE 300MG/30MG TABLET PO PRN (01:59)
[2019-03-20 07:38] LABS: BASO % 0.1 % (0-2.0); HEMATOCRIT 41.2 % (32.4-45.2); LYMPH % 13.3 % (8-40); MCH 33.8 pg (25.7-33.7); MEAN CELL VOLUME 99.4 fl (80-96); MEAN PLT VOLUME 9.3 fl (7.5-11.1); MONO % 4.2 % (3.8-10.2); NEUT % 82.4 % (42.8-82.8); PLATELET COUNT 134 K/MM3 (134-434); RBC 4.15 M/mm3 (3.60-5.2); RDW 12.3 % (11.6-15.6); WHITE BLOOD COUNT 5.1 K/mm3 (4.0-10.8)
[2019-03-20 07:44] LABS: ALBUMIN 3.4 g/dl (3.4-5.0); BILIRUBIN,TOTAL 0.5 mg/dl (0.2-1); CALCIUM 8.5 mg/dl (8.5-10); CREATININE 0.6 mg/dl (0.55-1.3); POTASSIUM 4.2 mmol/L (3.5-5.1); TOT PROT 5.8 g/dl (6.4-8.2)
[2019-03-20] MEDS ORDERED: NICOTINE 14 MG/24 HOURS TOPICAL PATCH TD SCH (08:00)
--- NOTE | 2019-03-20 08:59 | PN ---
Progress Note (short form) - Note Progress Note: PULMONARY APPEARS IMPROVED OFFERS NO COMPLAINTS VSS/AFEBRILE SPO2 99 ON R/A ANICTERIC CLEAR BREATH SOUNDS S1S2 BS+ NO EDEMA/NO CALF TENDERNESS CT'S REVIEWED ECHO NOTED A/E COPD LVDD RESOLVED ABD PAIN NO OBJECTION TO CONTINUING TREATMENT AN OUTPATIENT THANK YOU Steven HOPKINS MD Problem List - Problems (1) Acute respiratory failure with hypoxia Code(s): J96.01 - ACUTE RESPIRATORY FAILURE WITH HYPOXIA (2) CHF exacerbation Code(s): I50.9 - HEART FAILURE, UNSPECIFIED Qualifiers: Heart failure type: diastolic Qualified Code(s): I50.33 - Acute on chronic diastolic (congestive) heart failure (3) COPD exacerbation Code(s): J44.1 - CHRONIC OBSTRUCTIVE PULMONARY DISEASE W (ACUTE) EXACERBATION (4) Anxiety and depression Code(s): F41.9 - ANXIETY DISORDER, UNSPECIFIED; F32.9 - MAJOR DEPRESSIVE DISORDER, SINGLE EPISODE, UNSPECIFIED (5) Intraparenchymal hematoma of brain Code(s): S06.360A - TRAUM HEMOR CEREB, W/O LOSS OF CONSCIOUSNESS, INIT (6) Subdural hematoma Code(s): S06.5X9A - TRAUM SUBDR HEM W LOC OF UNSP DURATION, INIT
[2019-03-20] MEDS: CEFTRIAXONE 1 G/50 ML PREMIX 50 ML IVPB SCH (09:25)
[2019-03-20] MEDS: HEPARIN NA (PORCINE) 5,000 UNITS/ML 1ML VIAL SQ SCH (09:25)
[2019-03-20] MEDS: methylPREDNISolone NA SUCC 40 MG/1 ML VIAL IVPUSH SCH (09:26)
[2019-03-20] MEDS: guaiFENesin 200 MG/10 ML 10 ML UNIT-DOSE CUPS PO PRN (09:27)
[2019-03-20] MEDS: AZITHROMYCIN IVPB 500 MG/250 ML BAG IVPB SCH (09:27)
[2019-03-20] MEDS: OSELTAMIVIR PHOSPHATE 75 MG CAPSULE PO SCH (09:27)
[2019-03-20] MEDS: ALBUTEROL SO4 0.083% IH SOL 2.5 MG/3 ML VIAL.NEB. NEB PRN (09:30)
--- NOTE | 2019-03-20 09:32 | PN ---
Progress Note (short form) - Note Progress Note: Patient seen and consult dictated. Patient with some left sided abdominal pain yesterday; has resolved CT scan shows fatty liver but no other significant GI pathology Tolerating PO liquids without any problem; no N/V/cramps Abdomen soft +BS nontender no mass No obvious acute GI pathology at present; Discussed with patient and Dr Nichole Suggest advancing diet with clinical followup Elective outpatient colonoscopy (has not had colonoscopy to date) Please re-call if abdominal c/o recur
--- NOTE | 2019-03-20 09:41 | PN ---
Progress Note, Physician Chief Complaint: Events noted Not in distress History of Present Illness: Patient was seen and examined. Awake and alert. Chart was reviewed Denies chest pain, SOB or palpitations - Current Medication List Current Medications: Active Medications Acetaminophen (Tylenol -) 650 mg PO Q6H PRN PRN Reason: FEVER Last Admin: 03/19/19 20:20 Dose: 650 mg Acetaminophen/Codeine Phosphate (Tylenol # 3 -) 1 tab PO Q8H PRN PRN Reason: PAIN LEVEL 7 - 10 Last Admin: 03/20/19 01:59 Dose: 1 tab Albuterol Sulfate (Ventolin 0.083% Nebulizer Soln -) 1 amp NEB Q4H PRN PRN Reason: SHORT OF BREATH/WHEEZING Last Admin: 03/19/19 20:22 Dose: 1 amp Furosemide (Lasix -) 20 mg PO DAILY [facility] Last Admin: 03/20/19 09:25 Dose: 20 mg Guaifenesin (Robitussin -) 5 ml PO Q6H PRN PRN Reason: COUGH Last Admin: 03/20/19 09:27 Dose: 5 ml Heparin Sodium (Porcine) (Heparin -) 5,000 unit SQ BID [facility] Last Admin: 03/20/19 09:25 Dose: 5,000 unit Azithromycin (Zithromax 500mg Ivpb (Pre-Docked)) 500 mg in 250 mls @ 250 mls/ hr IVPB DAILY [facility] Last Admin: 03/20/19 09:27 Dose: 250 mls/hr Ceftriaxone Sodium (Ceftriaxone 1 Gm-D5w Bag) 50 mls @ 100 mls/hr IVPB DAILY [facility] Last Admin: 03/20/19 09:25 Dose: 100 mls/hr Lactobacillus Acidophilus (Bacid -) 1 tab PO DAILY [facility] Last Admin: 03/20/19 09:24 Dose: 1 tab Losartan Potassium (Cozaar -) 25 mg PO DAILY [facility] Last Admin: 03/20/19 09:25 Dose: 25 mg Methylprednisolone Sodium Succinate (Solu-Medrol -) 40 mg IVPUSH Q12H [facility] Last Admin: 03/20/19 09:26 Dose: 40 mg Nicotine (Nicoderm Patch -) 14 mg TD DAILY@0800 [facility] Last Admin: 03/20/19 08:48 Dose: 14 mg Oseltamivir Phosphate (Tamiflu -) 75 mg PO BID [facility] Stop: 03/23/19 21:59 Last Admin: 03/20/19 09:27 Dose: 75 mg Pantoprazole Sodium (Protonix -) 20 mg PO DAILY [facility] Last Admin: 03/20/19 09:26 Dose: 20 mg Polyethylene Glycol (Miralax (For Daily Use) -) 17 gm PO DAILY [facility] Trazodone HCl (Desyrel -) 100 mg PO HS PRN PRN Reason: INSOMNIA Last Admin: 03/19/19 22:14 Dose: 100 mg - Objective Vital Signs: Vital Signs Temperature 98.2 F 03/20/19 06:41 Pulse Rate 56 L 03/20/19 06:41 Respiratory Rate 18 03/20/19 06:41 Blood Pressure 125/68 03/20/19 06:41 O2 Sat by Pulse Oximetry (%) 99 03/20/19 06:41 Eyes: Yes: PERRL HENT: Yes: Atraumatic Neck: Yes: Supple Cardiovascular: Yes: Regular Rate and Rhythm, S1, S2 Respiratory: Yes: CTA Bilaterally Gastrointestinal: Yes: Normal Bowel Sounds, Soft. No: Tenderness Edema: No Additional Findings/Remarks: - Review of Systems Constitutional: denies: Chills, Fever Cardiovascular: (+) Shortness of Breath. denies: Chest Pain, Palpitations Respiratory: (+) Cough, SOB, SOB on Exertion. denies: Hemoptysis, Orthopnea, PND Gastrointestinal: denies: Abdominal Pain, Constipation, Diarrhea, Melena, Nausea , Rectal Bleeding, Vomiting Musculoskeletal: denies: Back Pain, Joint Pain Neurological: denies: Dizziness, Headache, Seizure, Syncope Labs: CBC, BMP 03/20/19 06:36 03/20/19 06:36 Problem List - Problems (1) Tricuspid valve regurgitation Code(s): I07.1 - RHEUMATIC TRICUSPID INSUFFICIENCY Qualifiers: Cardiac valve disease etiology: nonrheumatic Qualified Code(s): I36.1 - Nonrheumatic tricuspid (valve) insufficiency (2) Diastolic dysfunction with heart failure Code(s): I50.30 - UNSPECIFIED DIASTOLIC (CONGESTIVE) HEART FAILURE Qualifiers: Heart failure chronicity: acute on chronic Qualified Code(s): I50.33 - Acute on chronic diastolic (congestive) heart failure (3) Pulmonary hypertension Code(s): I27.20 - PULMONARY HYPERTENSION, UNSPECIFIED (4) Acute respiratory failure with hypoxia Code(s): J96.01 - ACUTE RESPIRATORY FAILURE WITH HYPOXIA (5) COPD exacerbation Code(s): J44.1 - CHRONIC OBSTRUCTIVE PULMONARY DISEASE W (ACUTE) EXACERBATION (6) Anxiety and depression Code(s): F41.9 - ANXIETY DISORDER, UNSPECIFIED; F32.9 - MAJOR DEPRESSIVE DISORDER, SINGLE EPISODE, UNSPECIFIED Assessment/Plan 1. Acute hypoxic respiratory failure 2. Acute on chronic diastolic heart failure 3. Alcohol dependence in remission 4. History of subdural Hematoma 5. COPD exacerbation, improved 6. Hepatomegaly and fatty liver PLAN: 1. Oral diuresis (Furosemide 20 mg QD) with monitoring renal function and electrolytes 2. Continue Losartan 25 mg QD with uptitration as tolerated 3. GI input noted with results of abdominal CT. Pulmonary input also noted 4. Bronchodilator, IV steroids, empiric antibiotics O2 as needed to maintain saO2>90% and Tamiflu course Recommended to follow up in office Dr. Banks ([facility]) [phone] Daniel Banks MD
[2019-03-20] MEDS ORDERED: POLYETHYLENE GLYCOL 3350 119 GM BTL PO SCH (10:00)
[2019-03-20] MEDS ORDERED: LOSARTAN POTASSIUM 25 MG TABLET PO SCH (10:00)
[2019-03-20] MEDS ORDERED: FUROSEMIDE 20 MG TABLET (FP) PO SCH (10:00)
[2019-03-20] MEDS ORDERED: PANTOPRAZOLE 20 MG TABLET PO SCH (10:00)
[2019-03-20] MEDS ORDERED: LACTOBACILLUS ACIDOPHILUS 1 TABLET PO SCH (10:00)
--- NOTE | 2019-03-20 10:49 | CONS ---
DATE OF CONSULTATION: 03/20/2019 REQUESTING PHYSICIAN: Marija Nichole MD HISTORY: Asked to evaluate this 59-year-old female with abdominal pain. The patient is a 59-year-old female with a history of COPD as well as a history of prior obesity status post gastric sleeve surgery in the past. The patient was admitted to the hospital with a 1- to 2-day history of abdominal discomfort, body aches, cough, and congestion. The patient was thought to possibly have either mild upper respiratory tract infection, ? viral. The patient's hospital course has been notable for the development of some abdominal pain. She also had some chest pain with a negative cardiac workup. She had some left-sided abdominal pain yesterday and had a CAT scan of the abdomen and pelvis, which showed a mildly elevated liver but no other significant pathology. The patient today states that her abdominal pain has resolved. In general, she has regular bowel movements daily and a good appetite and stable weight. She has not had a colonoscopy to date. The patient currently is tolerating clear liquids. She has no fever or chills and states she is now able to cough and feels somewhat better. She has stable vital signs. PHYSICAL EXAMINATION: Lungs: She has clear lungs bilaterally. Cardiac: Regular rate and rhythm. Abdomen: Soft abdomen. Normoactive bowel sounds. No tenderness or mass. IMPRESSION: Patient with recent abdominal discomfort primarily on the left side of uncertain etiology. This may have been related to her coughing and may be of musculoskeletal etiology. PLAN: Her CAT scan is unremarkable, and she has a normal white count and CBC. Patient at the present time is tolerating liquids, and diet can be advanced with close monitoring. She should have an elective colonoscopy as an outpatient in view of her age. We will follow as needed. CHARO CHRISTOPHER M.D. [id number]
--- NOTE | 2019-03-20 11:05 | DS ---
Physical Examination Vital Signs: Vital Signs Temperature 98.5 F 03/20/19 10:02 Pulse Rate 61 03/20/19 10:02 Respiratory Rate 18 03/20/19 10:02 Blood Pressure 152/75 03/20/19 10:02 O2 Sat by Pulse Oximetry (%) 97 03/20/19 10:02 Findings/Remarks: feeling much better; OOB to chair; had BM no abd pain no N/V/CP/SOB less cough; afebrile; wants to go home advised no more smoking; close f/u outpt; GI colonoscopy outpt; abd CT NL; chest CT c/w sever lung ds d/w pt; echo NL EF bu diastolic dysfct; po tapering steroids and ATB and BP meds as prescribed, f/u PCP cardio and pulm in 1-2 weeks Constitutional: Yes: No Distress, Calm Eyes: Yes: Conjunctiva Clear HENT: Yes: Atraumatic Neck: Yes: Supple Cardiovascular: Yes: Regular Rate and Rhythm Respiratory: Yes: CTA Bilaterally Gastrointestinal: Yes: Soft. No: Tenderness Renal/: No: Hematuria Musculoskeletal: No: Joint Stiffness, Joint Swelling Extremities: No: Cold, Cool, Cyanosis Edema: No Integumentary: No: Rash, Skin Tear, Venous Stasis Changes Neurological: Yes: WNL, Alert, Oriented ...Motor Strength: WNL Psychiatric: Yes: WNL, Alert, Oriented. No: Agitated, Suicidal Ideation Labs: CBC, BMP 03/20/19 06:36 03/20/19 06:36 Discharge Summary Problems reviewed: Yes Reason For Visit: ACUTE ON CHRONIC CONGESTIVE HEART FAILURE Current Active Problems Acute respiratory failure with hypoxia (Acute) CHF exacerbation (Acute) COPD exacerbation (Acute) Diastolic dysfunction with heart failure (Acute) Pulmonary hypertension (Acute) Tricuspid valve regurgitation (Acute) Procedures: Principal: 59 YOF admitted wth CP SOB cough; possible CHF / CXR and high BNP but chest CT no CHF, instead pt has severe lung ds; d/w pt Other Procedures: IV ATB, IV steroids, nebs; seen by cardiology, pulmonary; echo NLEF but diastolic dysfct; BP borderline high; developed some abd pain and possible ileus on KUB but abdomen CT NL; seen by GI; started on BP meds low dose losartan; received lasix but not needed anymore. Hospital Course: improved with above; DC home and f/u as advised d/w pt Condition: Stable - Instructions Diet, Activity, Other Instructions: f/u PCP GI cardiology and pulmonary in 2-4 weeks stop tobacco RTER if worse or recurrent Referrals: Marija Nichole [Primary Care Provider] - Sammy Hamm MD [Staff Physician] - Thaddeus Byrd MD [Staff Physician] - Gunnar Benavides MD [Staff Physician] - Disposition: HOME - Home Medications Comprehensive Discharge Medication List: Ambulatory Orders traZODone HCL [Trazodone HCl] 100 mg PO HS 09/15/17 Acetaminophen [Tylenol .Regular Strength -] 650 mg PO Q6H PRN tablet 03/20/19 Guaifenesin [Robitussin -] 5 ml PO Q6H PRN cup 03/20/19 Lactobacillus Acidophilus [Bacid -] 1 tab PO DAILY tab 03/20/19 Losartan Potassium [Cozaar -] 25 mg PO DAILY #30 tablet 03/20/19 Nicotine Patch [Nicoderm Patch -] 14 mg TD DAILY@0800 #10 patch 03/20/19 Oseltamivir Phosphate [Tamiflu -] 75 mg PO BID 2 Days #4 capsule 03/20/19 Pantoprazole Sodium [Protonix -] 20 mg PO DAILY #20 tablet.ec 03/20/19 Polyethylene Glycol 3350 [Miralax 119 gm Btl -] 17 gm PO DAILY bottle 03/20/19 predniSONE [Deltasone -] 5 mg PO DAILY #20 tablet 03/20/19
[2019-03-20 13:58] VITALS: BP 130/80; PULSE 53; TEMP 98.3
== END 2019-03-20 14:55 | disposition home or self-care (01) | DRG 291 ==
LOC: FER 12:38 → SUPCPDRO 12:38 → FM/S 16:09
PROVIDERS: ADMIT Internal Medicine; ATTEND Internal Medicine
DX: I50.33 Acute on chronic diastolic (congestive) heart failure (principal); J96.01 Acute respiratory failure with hypoxia; J44.1 Chronic obstructive pulmonary disease with (acute) exacerbation; K76.0 Fatty (change of) liver, not elsewhere classified; I27.20 Pulmonary hypertension, unspecified; F41.8 Other specified anxiety disorders; F17.210 Nicotine dependence, cigarettes, uncomplicated
CPT/HCPCS: 36415; 71045-TC-FY; 71250-TC; 74019-TC-FY; 74176-TC; 80053; 82550; 82553; 83880; 84439; 84443; 84481; 84484; 85025; 87086; 87633; 87804; 87807; 93005; 93306-TC; 94640; 99283-25; J0131; J1644